=== PATIENT | female | born 1995 | race Caucasian/White ===

== ENCOUNTER 2016-06-12 00:19 | Emergency (ER) | payer OTHER ==
[2016-06-12 01:21] LABS: ALT 110 U/L (9-52); AST 47 U/L (14-36); Alkaline Phosphatase 176 U/L (38-126); Amylase 53 U/L (30-110); Anion Gap 12 mmol/L; Basophils % (A) 0 %; Blood Urea Nitrogen 13 mg/dL (7-17); CH 29.1; CHCM 36.3; Calcium 9.1 mg/dL (8.4-10.2); Carbon Dioxide 23 mmol/L (22-30); Chloride 100 mmol/L (98-107); Eosinophils # (A) 0.1 k/uL (0-0.7); Eosinophils % (A) 2 %; HCT 41.5 % (34.0-46.0); HDW 2.92; HGB 14.7 gm/dL (11.4-16.0); Luc # (Auto) 0.22; Luc % (Auto) 3; Lymphocytes % (A) 34 %; MCH 28.4 pg (25.0-35.0); MCHC 35.4 g/dL (31.0-37.0); MCV 80.2 fL (80.0-100.0); Mean Platelet Volume 7.4; Monocytes # (A) 0.4 k/uL (0-1.0); Monocytes % (A) 5 %; Neutrophils # (A) 5.1 k/uL (1.3-7.7); Neutrophils % (A) 58 %; Non-African American GFR(MDRD) >60 (>60 ml/min/1.73 sqM); Potassium 4.5 mmol/L (3.5-5.1); RBC 5.18 m/uL (3.80-5.40); RDW 12.4 % (11.5-15.5); Sodium 135 mmol/L (137-145); Total Bilirubin 1.2 mg/dL (0.2-1.3); Total Protein 6.9 g/dL (6.3-8.2); WBC 8.9 k/uL (4.0-11.0); WBC (Perox) 9.18
[2016-06-12 01:45] LABS: Glucose 483 mg/dL (74-99)
--- NOTE | 2016-06-12 01:54 | US ---
EXAMINATION TYPE: US gallbladder DATE OF EXAM: 06/12/2016 1:31 AM COMPARISON: NONE CLINICAL HISTORY: Abd pain, hx of gallstones, not NPO-- ate 2 hours ago. EXAM MEASUREMENTS: Liver Length: 17.4 cm Gallbladder Wall: 0.2 cm CHD: 0.4 cm Right Kidney: 11.5 x 5.5 x 5.2 cm TECHNOLOGIST IMPRESSION: Pancreas: Tail not seen due to overlying bowel gas Liver: upper limits, echogenic Gallbladder: Nondistended, multiple echogenic foci; some nonshadowing. Evidence for sonographic Pagan's sign: neg CHD: wnl Right Kidney: wnl IMPRESSION: There is a contracted gallbladder with multiple gallstones or echogenic bile. No dilated ducts. No ascites. No focal liver defect. Normal Values: Liver Length: < 16cm wnl, 17-18cm upper limits, >18cm enlarged Renal Length = 9 - 12cm GB Wall: < 0.3cm CBD: < 0.6cm or < 1.0cm post cholecystectomy
--- NOTE | 2016-06-12 01:54 | ED ---
Abdominal Pain HPI - General Chief Complaint: Abdominal Pain Stated Complaint: Gallbladder Time Seen by Provider: 06/12/16 00:47 Source: patient, RN notes reviewed Mode of arrival: ambulatory Limitations: no limitations - History of Present Illness Initial Comments: Patient is a 20-year-old female presenting to the with a chief complaint of abdominal pain. Patient reports that is in her right upper quadrant. She states that she is scheduled for gallbladder surgery on July 29. She has been to the multiple times for similar pains such as this. Patient reports that earlier today she had increased nausea and vomiting. She states that she' s had no diarrhea or fever or chills. Patient denies any recent fever, chills, shortness of breath, chest pain, back pain, numbness or tingling, dysuria or hematuria, constipation or diarrhea, headaches or visual changes, or any other current symptoms. She has a past medical history of type 1 diabetes. Patient is insulin-dependent. - Related Data Home Medications Medication Instructions Recorded Confirmed ALPRAZolam [Xanax] 0.5 mg PO Q8H PRN 11/10/14 06/12/16 metFORMIN HCL 1,000 mg PO BID 09/19/15 06/12/16 Glucagon Emergency Kit 1 mg IM ONCE PRN 03/14/16 06/12/16 Insulin Regular [HumuLIN R] See Protocol SQ-PUMP CONTINUOUS 04/22/16 06/12/16 Previous Rx's Medication Instructions Recorded Ondansetron Odt [Zofran Odt] 4 mg PO Q8HR PRN #20 tab 04/22/16 HYDROcodone/APAP 5-325MG [[place] 1 tab PO Q4HR PRN #20 tab 04/28/16 5-325] Hydrocodone/Acetaminophen [[place] 1 tab PO Q6HR PRN #10 tab 05/11/16 5-325] HYDROcodone/APAP 10-325MG [[place] 1 tab PO Q6H PRN #10 tab 06/12/16 10-325] Ondansetron [Zofran] 4 mg PO Q8HR PRN #8 tab 06/12/16 Allergies Allergy/AdvReac Type Severity Reaction Status Date / Time amoxicillin [Amoxicillin] Allergy Severe Rash/Hives Verified 06/12/16 00:23 citalopram hydrobromide Allergy Severe Rash/Hives Verified 06/12/16 00:23 [From Celexa] adhesive Allergy Itching Verified 06/12/16 00:23 adhesive tape Allergy Itching Verified 06/12/16 00:23 pioglitazone HCl [From Actos] Allergy Rash/Hives Verified 06/12/16 00:23 Review of Systems ROS Statement: Those systems with pertinent positive or pertinent negative responses have been documented in the HPI. ROS Other: All systems not noted in ROS Statement are negative. Past Medical History Past Medical History: Asthma, Diabetes Mellitus Additional Past Medical History / Comment(s): polycystic ovaries, TACHYCARDIA, gallbladder problems History of Any Multi-Drug Resistant Organisms: None Reported Past Surgical History: Adenoidectomy, Tonsillectomy Additional Past Surgical History / Comment(s): CYST REMOVAL FROM SINUS CAVITY, NOSE RECONSTRUCTION Past Anesthesia/Blood Transfusion Reactions: No Reported Reaction Past Psychological History: Anxiety, Depression Smoking Status: Former smoker Past Alcohol Use History: Occasional Past Drug Use History: Marijuana Additional Drug Use History / Comment(s): PT STATES SMOKES MARIJUANA OCASSIONALY - Past Family History Mother Family Medical History: Thyroid Disorder Additional Family Medical History / Comment(s): GESTATIONAL DIABETIC, BRAIN BLEED, DEPRESSION, ANXIETY Sister(s) Additional Family Medical History / Comment(s): DEPRESSION, ANXIETY General Exam - General Exam Comments Initial Comments: Patient is a pleasant 20-year-old female. She does not appear to be in any acute distress. Limitations: no limitations General appearance: alert, in no apparent distress Head exam: Present: atraumatic, normocephalic, normal inspection Eye exam: Present: normal appearance, PERRL, EOMI. Absent: scleral icterus, conjunctival injection, periorbital swelling ENT exam: Present: normal exam, mucous membranes moist Neck exam: Present: normal inspection. Absent: tenderness, meningismus, lymphadenopathy Respiratory exam: Present: normal lung sounds bilaterally. Absent: respiratory distress, wheezes, rales, rhonchi, stridor Cardiovascular Exam: Present: regular rate, normal rhythm, normal heart sounds, other (Patient has mild right upper quadrant tenderness.). Absent: systolic murmur, diastolic murmur, rubs, gallop, clicks GI/Abdominal exam: Present: soft, tenderness (Mild tenderness in the right upper quadrant.), normal bowel sounds. Absent: distended, guarding, rebound, rigid Extremities exam: Present: normal inspection, full ROM, normal capillary refill. Absent: tenderness, pedal edema, joint swelling, calf tenderness Back exam: Present: normal inspection Neurological exam: Present: alert, oriented X3, CN II-XII intact Psychiatric exam: Present: normal affect, normal mood Skin exam: Present: warm, dry, intact, normal color. Absent: rash Course Vital Signs 06/12/16 06/12/16 06/12/16 00:22 01:04 02:29 Temperature 98.5 F 98.8 F 98.1 F Pulse Rate 120 H 110 H 102 H Respiratory 20 18 16 Rate Blood Pressure 167/82 137/80 141/72 O2 Sat by Pulse 98 98 97 Oximetry Medical Decision Making - Medical Decision Making Patient is a 20-year-old female with a history of type 1 diabetes presenting to the with chief complaint of right upper quadrant pain. Patient states he is emergency room multiple times for similar complaints. Patient reports she does have a surgery scheduled for cholecystectomy on June 28. Patient reports that this evening her right upper quadrant pain became worse after eating. She also had a few episodes of vomiting. Patient was given IV fluids and pain management. Ultrasound was obtained reveals no evidence of acute cholecystitis. There is evidence of gallstones and a contracted gallbladder. Patient did have an elevated glucose of 483. Patient was given 8 units of insulin subcu. Acetone was negative and urine was negative for ketones. Patient blood sugar was rechecked and was 383 1 hour later. Patient is given a subsequent 6 units of insulin. Patient will be reevaluated and upon lowering blood sugar patient will be discharged. Patient will be discharged at this time with a blood sugar of 323, as is a half -hour after 6 additional units of insulin. Patient is adamant she wants to go home at this time. Patient will be discharged with pain medication and nausea medication. Patient understands treatment plan will comply. Return parameters were discussed. I advised patient called with primary care physician tomorrow. - Lab Data Result diagrams: 06/12/16 00:35 06/12/16 00:35 Lab Results 06/12/16 06/12/16 06/12/16 Range/Units 00:35 00:35 00:35 WBC 8.9 (4.0-11.0) k/uL RBC 5.18 (3.80-5.40) m/uL Hgb 14.7 (11.4-16.0) gm/dL Hct 41.5 (34.0-46.0) % MCV 80.2 (80.0-100.0) fL MCH 28.4 (25.0-35.0) pg MCHC 35.4 (31.0-37.0) g/dL RDW 12.4 (11.5-15.5) % Plt Count 298 (150-450) k/uL Neutrophils % 58 % Lymphocytes % 34 % Monocytes % 5 % Eosinophils % 2 % Basophils % 0 % Neutrophils # 5.1 (1.3-7.7) k/uL Lymphocytes # 3.0 (1.0-4.8) k/uL Monocytes # 0.4 (0-1.0) k/uL Eosinophils # 0.1 (0-0.7) k/uL Basophils # 0.0 (0-0.2) k/uL Sodium 135 L (137-145) mmol/L Potassium 4.5 (3.5-5.1) mmol/L Chloride 100 (98-107) mmol/L Carbon Dioxide 23 (22-30) mmol/L Anion Gap 12 mmol/L BUN 13 (7-17) mg/dL Creatinine 0.60 (0.52-1.04) mg/dL Est GFR (MDRD) Af Amer >60 (>60 ml/min/1.73 sqM) Est GFR (MDRD) Non-Af >60 (>60 ml/min/1.73 sqM) Glucose 483 H* (74-99) mg/dL POC Glucose (mg/dL) (75-99) mg/dL POC Glu Skills Trainer ID Calcium 9.1 (8.4-10.2) mg/dL Total Bilirubin 1.2 (0.2-1.3) mg/dL AST 47 H (14-36) U/L ALT 110 H (9-52) U/L Alkaline Phosphatase 176 H (38-126) U/L Total Protein 6.9 (6.3-8.2) g/dL Albumin 4.2 (3.5-5.0) g/dL Amylase 53 (30-110) U/L Lipase 86 (23-300) U/L Urine Color Colorless Urine Appearance Clear (Clear) Urine pH 5.5 (5.0-8.0) Ur Specific [place] 1.026 (1.001-1.035) Urine Protein Negative (Negative) Urine Glucose (UA) 4+ H (Negative) Urine Ketones Trace H (Negative) Urine Blood Moderate H (Negative) Urine Nitrate Negative (Negative) Urine Bilirubin Negative (Negative) Urine Urobilinogen <2.0 (<2.0) mg/dL Ur Leukocyte Esterase Negative (Negative) Urine RBC <1 (0-5) /hpf Urine WBC 3 (0-5) /hpf Ur Squamous Epith Cells 2 (0-4) /hpf Urine Bacteria Rare H (None) /hpf Urine HCG, Qual (Not Detectd) Acetone, Qual (Negative) 06/12/16 06/12/16 06/12/16 Range/Units 00:35 00:35 02:22 WBC (4.0-11.0) k/uL RBC (3.80-5.40) m/uL Hgb (11.4-16.0) gm/dL Hct (34.0-46.0) % MCV (80.0-100.0) fL MCH (25.0-35.0) pg MCHC (31.0-37.0) g/dL RDW (11.5-15.5) % Plt Count (150-450) k/uL Neutrophils % % Lymphocytes % % Monocytes % % Eosinophils % % Basophils % % Neutrophils # (1.3-7.7) k/uL Lymphocytes # (1.0-4.8) k/uL Monocytes # (0-1.0) k/uL Eosinophils # (0-0.7) k/uL Basophils # (0-0.2) k/uL Sodium (137-145) mmol/L Potassium (3.5-5.1) mmol/L Chloride (98-107) mmol/L Carbon Dioxide (22-30) mmol/L Anion Gap mmol/L BUN (7-17) mg/dL Creatinine (0.52-1.04) mg/dL Est GFR (MDRD) Af Amer (>60 ml/min/1.73 sqM) Est GFR (MDRD) Non-Af (>60 ml/min/1.73 sqM) Glucose (74-99) mg/dL POC Glucose (mg/dL) 361 H (75-99) mg/dL POC Glu Skills Trainer ID Denisha Verma Calcium (8.4-10.2) mg/dL Total Bilirubin (0.2-1.3) mg/dL AST (14-36) U/L ALT (9-52) U/L Alkaline Phosphatase (38-126) U/L Total Protein (6.3-8.2) g/dL Albumin (3.5-5.0) g/dL Amylase (30-110) U/L Lipase (23-300) U/L Urine Color Urine Appearance (Clear) Urine pH (5.0-8.0) Ur Specific [place] (1.001-1.035) Urine Protein (Negative) Urine Glucose (UA) (Negative) Urine Ketones (Negative) Urine Blood (Negative) Urine Nitrate (Negative) Urine Bilirubin (Negative) Urine Urobilinogen (<2.0) mg/dL Ur Leukocyte Esterase (Negative) Urine RBC (0-5) /hpf Urine WBC (0-5) /hpf Ur Squamous Epith Cells (0-4) /hpf Urine Bacteria (None) /hpf Urine HCG, Qual Not Detected (Not Detectd) Acetone, Qual Negative (Negative) 06/12/16 Range/Units 03:14 WBC (4.0-11.0) k/uL RBC (3.80-5.40) m/uL Hgb (11.4-16.0) gm/dL Hct (34.0-46.0) % MCV (80.0-100.0) fL MCH (25.0-35.0) pg MCHC (31.0-37.0) g/dL RDW (11.5-15.5) % Plt Count (150-450) k/uL Neutrophils % % Lymphocytes % % Monocytes % % Eosinophils % % Basophils % % Neutrophils # (1.3-7.7) k/uL Lymphocytes # (1.0-4.8) k/uL Monocytes # (0-1.0) k/uL Eosinophils # (0-0.7) k/uL Basophils # (0-0.2) k/uL Sodium (137-145) mmol/L Potassium (3.5-5.1) mmol/L Chloride (98-107) mmol/L Carbon Dioxide (22-30) mmol/L Anion Gap mmol/L BUN (7-17) mg/dL Creatinine (0.52-1.04) mg/dL Est GFR (MDRD) Af Amer (>60 ml/min/1.73 sqM) Est GFR (MDRD) Non-Af (>60 ml/min/1.73 sqM) Glucose (74-99) mg/dL POC Glucose (mg/dL) 360 H (75-99) mg/dL POC Glu Skills Trainer ID Denisha Verma Calcium (8.4-10.2) mg/dL Total Bilirubin (0.2-1.3) mg/dL AST (14-36) U/L ALT (9-52) U/L Alkaline Phosphatase (38-126) U/L Total Protein (6.3-8.2) g/dL Albumin (3.5-5.0) g/dL Amylase (30-110) U/L Lipase (23-300) U/L Urine Color Urine Appearance (Clear) Urine pH (5.0-8.0) Ur Specific [place] (1.001-1.035) Urine Protein (Negative) Urine Glucose (UA) (Negative) Urine Ketones (Negative) Urine Blood (Negative) Urine Nitrate (Negative) Urine Bilirubin (Negative) Urine Urobilinogen (<2.0) mg/dL Ur Leukocyte Esterase (Negative) Urine RBC (0-5) /hpf Urine WBC (0-5) /hpf Ur Squamous Epith Cells (0-4) /hpf Urine Bacteria (None) /hpf Urine HCG, Qual (Not Detectd) Acetone, Qual (Negative) - Radiology Data Radiology results: report reviewed Right upper quadrant ultrasound showed a contracted gallbladder with multiple gallstones or echogenic bile. No dilated ducts. No ascites and no focal lobar deficit. Disposition Clinical Impression: Biliary colic, Hyperglycemia, Nausea Disposition: HOME SELF-CARE Condition: Good Instructions: Abdominal Pain (ED), Biliary Colic (ED) Additional Instructions: Patient started to follow-up with primary care provider in one to 2 days. Take nausea medication as prescribed. Continue to use her insulin. Return to the EC if any alarming signs or symptoms occur. Follow-up with surgery on the for gallbladder removal. Prescriptions: HYDROcodone/APAP 10-325MG [[place] 10-325] 1 tab PO Q6H PRN #10 tab PRN Reason: Pain Ondansetron [Zofran] 4 mg PO Q8HR PRN #8 tab PRN Reason: Nausea And Vomiting Referrals: Gemma Jacob MD [Primary Care Provider] - 1-2 days Time of Disposition: 03:02
[2016-06-12 01:55] LABS: Appearance,Urine Clear (Clear); Bacteria,Urine Rare /hpf; Bilirubin,Urine Negative (Negative); Glucose,Urine (UA) 4+ (Negative); Ketones,Urine Trace (Negative); Leukocyte Esterase,Urine Negative (Negative); Nitrite,Urine Negative (Negative); PH, Urine 5.5 (5.0-8.0); Particle Count 371; Protein,Urine Negative (Negative); RBC,Urine <1 /hpf (0-5); Specific Gravity,Urine 1.026 (1.001-1.035); Squamous Epithelial Cell,Urine 2 /hpf (0-4); UA Billing (MACRO vs. MICRO) MICRO; Urobilinogen,Urine <2.0 mg/dL (<2.0); WBC,Urine 3 /hpf (0-5)
--- NOTE | 2016-06-12 01:55 | XR ---
EXAMINATION TYPE: XR KUB DATE OF EXAM: 06/12/2016 1:39 AM COMPARISON: 04/09/2016 HISTORY: Abdominal pain TECHNIQUE: 2 views FINDINGS: Bowel gas pattern is normal. There is no sign of intestinal obstruction or pneumoperitoneum . Fecal pattern is normal. There is no evidence of a mass. There are no pathologic calcifications ove r the kidneys. IMPRESSION: Nonacute abdomen. No change.
[2016-06-12] MEDS ORDERED: ONDANSETRON 4 MG/2 ML VIAL IVP STA (01:58)
[2016-06-12] MEDS ORDERED: HYDROmorphone 1 MG/ML 1 ML SYRINGE IVP STA (01:59)
[2016-06-12] MEDS ORDERED: INSULIN REGULAR 100 UNIT/ML VIAL SQ ONE ×2 (02:10→03:30)
[2016-06-12 02:23] LABS: Glucose,Whole Blood 361 mg/dL (75-99)
[2016-06-12] MEDS ORDERED: SODIUM CHLORIDE 0.9% 1,000 ML IV STA (02:24)
[2016-06-12 02:30] VITALS: BP 141/72; PULSE 102; RESP 16; TEMP 98.1
[2016-06-12] MEDS ORDERED: METOCLOPRAMIDE 5 MG/ML 2 ML VIAL IVP STA (02:47)
[2016-06-12] MEDS ORDERED: HYDROcodone/APAP 10-325MG 1 EACH TAB PO ONE (02:58)
[2016-06-12 03:15] LABS: Glucose,Whole Blood 360 mg/dL (75-99)
[2016-06-12 04:01] LABS: Glucose,Whole Blood 329 mg/dL (75-99)
== END 2016-06-12 04:04 | disposition home or self-care (01) ==
LOC: EC 00:19
DX: K80.20 Calculus of gallbladder without cholecystitis without obstruction (principal); E10.65 Type 1 diabetes mellitus with hyperglycemia; Z96.41 Presence of insulin pump (external) (internal); E28.2 Polycystic ovarian syndrome; Z79.84 Long term (current) use of oral hypoglycemic drugs; Z88.0 Allergy status to penicillin; Z88.8 Allergy status to other drugs, medicaments and biological substances; Z87.891 Personal history of nicotine dependence; F12.90 Cannabis use, unspecified, uncomplicated
CPT/HCPCS: 99284; 96374; 96375 ×2; 96361; 36415; 80053; 82150; 82009; 83690; 85025; 81001; 81025; 74000; 76705; J2765; J2405; J1170

== ENCOUNTER 2016-06-26 15:15 | Emergency (ER) | payer OTHER ==
[2016-06-26] MEDS ORDERED: HYDROmorphone 1 MG/ML 1 ML SYRINGE IVP STA (17:13)
[2016-06-26] MEDS ORDERED: PANTOPRAZOLE 40 MG/10 ML VIAL IVP STA (17:13)
[2016-06-26] MEDS ORDERED: METOCLOPRAMIDE 5 MG/ML 2 ML VIAL IVP STA (17:13)
[2016-06-26] MEDS ORDERED: SODIUM CHLORIDE 0.9% 1,000 ML IV STA (17:13)
--- NOTE | 2016-06-26 17:20 | ED ---
General Adult HPI - General Chief complaint: Abdominal Pain Stated complaint: gallbladder/pain/vomiting Time Seen by Provider: 06/26/16 16:54 Source: patient, family, RN notes reviewed, old records reviewed Mode of arrival: ambulatory Limitations: no limitations - History of Present Illness Initial comments: Chief complaint and history of present illness a 20-year-old female here with her mother. The patient has had recurrent gallbladder pain. She scheduled to have cholecystectomy in approximately 36 hours. Patient reports the pain started last night persistent through this morning. Nausea vomiting one episode of diarrhea yesterday. - Related Data Home Medications Medication Instructions Recorded Confirmed ALPRAZolam [Xanax] 0.5 mg PO Q8H PRN 11/10/14 06/26/16 metFORMIN HCL 1,000 mg PO BID 09/19/15 06/26/16 Insulin Regular [HumuLIN R] See Protocol SQ-PUMP CONTINUOUS 04/22/16 06/26/16 Ondansetron [Zofran ODT] 4 mg PO Q8HR PRN 06/26/16 06/26/16 Allergies Allergy/AdvReac Type Severity Reaction Status Date / Time amoxicillin [Amoxicillin] Allergy Severe Rash/Hives Verified 06/26/16 16:47 citalopram hydrobromide Allergy Severe Rash/Hives Verified 06/26/16 16:47 [From Celexa] adhesive Allergy Itching Verified 06/26/16 16:47 adhesive tape Allergy Itching Verified 06/26/16 16:47 pioglitazone HCl [From Actos] Allergy Rash/Hives Verified 06/26/16 16:47 Review of Systems ROS Statement: Those systems with pertinent positive or pertinent negative responses have been documented in the HPI. Review of systems no headache or visual acuity changes no chest pain or shortness of breath. Patient has right upper quadrant discomfort nausea vomiting one episode of diarrhea. No back pain no neuro deficits no urinary problems. All systems were otherwise reviewed. Past medical problems significant for asthma, insulin-dependent diabetes mellitus, polycystic ovaries. Surgeries tonsils, adenoids, sinus cyst removed. The patient's family history significant for great grandmother had breast cancer. Patient quit smoking one year ago and since alcohol socially. ROS Other: All systems not noted in ROS Statement are negative. Past Medical History Past Medical History: Asthma, Diabetes Mellitus Additional Past Medical History / Comment(s): polycystic ovaries, TACHYCARDIA, gallbladder problems History of Any Multi-Drug Resistant Organisms: None Reported Past Surgical History: Adenoidectomy, Tonsillectomy Additional Past Surgical History / Comment(s): CYST REMOVAL FROM SINUS CAVITY, NOSE RECONSTRUCTION Past Anesthesia/Blood Transfusion Reactions: No Reported Reaction Past Psychological History: Anxiety, Depression Smoking Status: Former smoker Past Alcohol Use History: None Reported Past Drug Use History: None Reported Additional Drug Use History / Comment(s): PT STATES SMOKES MARIJUANA OCASSIONALY - Past Family History Mother Family Medical History: Thyroid Disorder Additional Family Medical History / Comment(s): GESTATIONAL DIABETIC, BRAIN BLEED, DEPRESSION, ANXIETY Sister(s) Additional Family Medical History / Comment(s): DEPRESSION, ANXIETY General Exam - General Exam Comments Initial Comments: General: The patient is awake and alert, right upper quadrant pain. Lasting several hours with nausea vomiting and one episode of diarrhea yesterday. Vital signs show temperature 98.3 pulse 110 respiratory rate 18 pulse ox 96% room air blood pressure 177/92. Systolic and diastolic elevation noted the patient is in pain. Eye: Pupils are equal, round and reactive to light, extra-ocular movements are intact ; there is normal conjunctiva bilaterally. No signs of icterus. Ears, nose, mouth and throat: There are moist mucous membranes and no oral lesions. Neck: The neck is supple, there is no tenderness . Cardiovascular: Tachycardic heart rate., 110. No murmur, rub or gallop is appreciated. Respiratory: Lungs are clear to auscultation, respirations are non-labored, breath sounds are equal. No wheezes, stridor, rales, or rhonchi. Gastrointestinal: Soft, non-distended, mildly tender right upper quadrant. Negative Pagan sign.. There is no rebound or guarding present. No CVA tenderness. Bowel sounds are unremarkable. Back: There is no tenderness to palpation in the midline. There is no obvious deformity. Musculoskeletal: Normal ROM, no tenderness, There is no pedal edema. There is no calf tenderness or swelling. Sensation intact. Pulses equal bilaterally 2+. Neurological: No complaint of or any evidence of any neuro deficits. Skin: Skin is warm and dry and no rashes or lesions are noted. Limitations: no limitations Course Vital Signs 06/26/16 15:55 Temperature 98.3 F Pulse Rate 110 H Respiratory 18 Rate Blood Pressure 167/92 O2 Sat by Pulse 96 Oximetry Medical Decision Making - Medical Decision Making Medical decision making; patient white count 7.7 hemoglobin 15 hematocrit of 43 , potassium 5.1. The patient's BUN 10 creatinine 0.46 with a GFR greater than 60. Amylase lipase within normal limits. The patient's glucose elevated to 79 for which she is to receive 6 units of regular insulin subcu. The patient total bilirubin is elevated at 2.3 AST ALT and alk phos elevated as well. She was given medications hydration states she's feeling much better. States she's able to go home follow up with her general surgeon in approximately 36 hours to have her gallbladder removed. Advised return emergency room as needed otherwise stable a small greasy fatty foods. - Lab Data Result diagrams: 06/26/16 18:00 06/26/16 18:00 Lab Results 06/26/16 06/26/16 Range/Units 18:00 18:00 WBC 7.7 (4.0-11.0) k/uL RBC 5.43 H (3.80-5.40) m/uL Hgb 15.4 (11.4-16.0) gm/dL Hct 43.3 (34.0-46.0) % MCV 79.7 L (80.0-100.0) fL MCH 28.3 (25.0-35.0) pg MCHC 35.6 (31.0-37.0) g/dL RDW 12.6 (11.5-15.5) % Plt Count 294 (150-450) k/uL Neutrophils % 60 % Lymphocytes % 32 % Monocytes % 4 % Eosinophils % 2 % Basophils % 1 % Neutrophils # 4.6 (1.3-7.7) k/uL Lymphocytes # 2.5 (1.0-4.8) k/uL Monocytes # 0.3 (0-1.0) k/uL Eosinophils # 0.1 (0-0.7) k/uL Basophils # 0.0 (0-0.2) k/uL Sodium 137 (137-145) mmol/L Potassium 5.1 (3.5-5.1) mmol/L Chloride 102 (98-107) mmol/L Carbon Dioxide 20 L (22-30) mmol/L Anion Gap 15 mmol/L BUN 10 (7-17) mg/dL Creatinine 0.46 L (0.52-1.04) mg/dL Est GFR (MDRD) Af Amer >60 (>60 ml/min/1.73 sqM) Est GFR (MDRD) Non-Af >60 (>60 ml/min/1.73 sqM) Glucose 279 H (74-99) mg/dL Calcium 9.7 (8.4-10.2) mg/dL Total Bilirubin 2.3 H (0.2-1.3) mg/dL AST 51 H (14-36) U/L ALT 129 H (9-52) U/L Alkaline Phosphatase 128 H (38-126) U/L Total Protein 8.1 (6.3-8.2) g/dL Albumin 4.7 (3.5-5.0) g/dL Amylase 47 (30-110) U/L Lipase 62 (23-300) U/L Disposition Clinical Impression: Biliary colic, Abdominal pain Disposition: HOME SELF-CARE Condition: Fair Instructions: Biliary Colic (ED) Additional Instructions: Take home medications, stay away from greasy fatty foods. Follow-up with your surgeon for cholecystectomy today or tomorrow. Return emergency room as needed. Check sugar regularly and cover appropriately with available regular insulin. Time of Disposition: 18:48
[2016-06-26 18:15] LABS: Basophils % (A) 1 %; CHCM 36.5; Eosinophils # (A) 0.1 k/uL (0-0.7); Eosinophils % (A) 2 %; HCT 43.3 % (34.0-46.0); HDW 2.96; HGB 15.4 gm/dL (11.4-16.0); Luc # (Auto) 0.17; Luc % (Auto) 2; Lymphocytes # (A) 2.5 k/uL (1.0-4.8); Lymphocytes % (A) 32 %; MCH 28.3 pg (25.0-35.0); MCHC 35.6 g/dL (31.0-37.0); MCV 79.7 fL (80.0-100.0); Mean Platelet Volume 7.1; Monocytes # (A) 0.3 k/uL (0-1.0); Monocytes % (A) 4 %; Neutrophils # (A) 4.6 k/uL (1.3-7.7); Neutrophils % (A) 60 %; RBC 5.43 m/uL (3.80-5.40); RDW 12.6 % (11.5-15.5); WBC 7.7 k/uL (4.0-11.0); WBC (Perox) 7.98
[2016-06-26 18:24] LABS: ALT 129 U/L (9-52); AST 51 U/L (14-36); Alkaline Phosphatase 128 U/L (38-126); Amylase 47 U/L (30-110); Anion Gap 15 mmol/L; Blood Urea Nitrogen 10 mg/dL (7-17); Calcium 9.7 mg/dL (8.4-10.2); Carbon Dioxide 20 mmol/L (22-30); Chloride 102 mmol/L (98-107); Glucose 279 mg/dL (74-99); Non-African American GFR(MDRD) >60 (>60 ml/min/1.73 sqM); Potassium 5.1 mmol/L (3.5-5.1); Sodium 137 mmol/L (137-145); Total Bilirubin 2.3 mg/dL (0.2-1.3); Total Protein 8.1 g/dL (6.3-8.2)
[2016-06-26] MEDS ORDERED: INSULIN REGULAR 100 UNIT/ML VIAL SQ ONE (18:44)
[2016-06-26 19:09] VITALS: BP 150/87; PULSE 98; RESP 20; TEMP 97.7
== END 2016-06-26 19:11 | disposition home or self-care (01) ==
LOC: EC 15:15
DX: K80.50 Calculus of bile duct without cholangitis or cholecystitis without obstruction (principal); Z79.4 Long term (current) use of insulin; Z79.84 Long term (current) use of oral hypoglycemic drugs; Z88.0 Allergy status to penicillin; Z88.8 Allergy status to other drugs, medicaments and biological substances; Z91.048 Other nonmedicinal substance allergy status; Z87.891 Personal history of nicotine dependence; E11.9 Type 2 diabetes mellitus without complications
CPT/HCPCS: 36415; 80053; 82150; 83690; 85025; 96374; 96375 ×2; 96361; 99284; J2765; J1170; C9113

== ENCOUNTER 2016-06-28 07:01 | Day surgery (SDC) | payer OTHER ==
[2016-06-25 11:06] VITALS: BMI 32.3
[~2016-06-28 07:01] MED LIST: DEXAMETHASONE SOD PHOSPHATE 10 MG/ML 1 ML VIAL IV ONE; HEPARIN SODIUM,PORCINE 5,000 UNIT/ML 1 ML VIAL SQ ONE; LACTATED RINGERS 1,000 ML IV SCH; MIDAZOLAM 2 MG/2 ML VIAL IV PRN; ONDANSETRON 4 MG/2 ML VIAL IVP ONE; ceFAZolin 2 GM in SODIUM CHLORIDE 0.9% 100 ML IVPB ONE
[2016-06-28 07:23] LABS: Glucose,Whole Blood 107 mg/dL (75-99)
[2016-06-28] MEDS ORDERED: LIDOCAINE 1% 20 ML VIAL (10MG/ML) FOR IV START INTRADERMA ONE (07:25)
[2016-06-28 07:31] VITALS: RESP 16
--- NOTE | 2016-06-28 08:16 | P.GSHP ---
History of Present Illness H&P Date: 06/28/16 Chief Complaint: Cholecystitis Patient seen by myself in the office in November of last year. At that time the patient is having complaints of right upper quadrant pain. He is found on lab work to have elevated liver enzymes. A contracted gallbladder was also identified. She had a previous upper endoscopy showing gastritis. Initially the ultrasounds were stating no gallstones however repeat ultrasounds performed after the patient re-presented to the ER showed the presence of multiple gallstones. Patient was actually just in the emergency room at 2 weeks ago. Her bilirubin was once again elevated. There is no biliary dilation. The patient was seen by GI for elevated liver enzymes. Request for liver biopsy was made. Patient denies any change in the color of her skin urine or stool. No rectal bleeding or melena. Recent liver enzymes normal. Past Medical History Past Medical History: Asthma, Diabetes Mellitus Additional Past Medical History / Comment(s): polycystic ovaries, TACHYCARDIA, gallbladder problems History of Any Multi-Drug Resistant Organisms: None Reported Past Surgical History: Adenoidectomy, Tonsillectomy Additional Past Surgical History / Comment(s): CYST REMOVAL FROM SINUS CAVITY, NOSE RECONSTRUCTION Past Anesthesia/Blood Transfusion Reactions: No Reported Reaction Past Psychological History: Anxiety, Depression Smoking Status: Former smoker Past Alcohol Use History: None Reported Additional Past Alcohol Use History / Comment(s): QUIT SMOKING 2015 Past Drug Use History: None Reported Additional Drug Use History / Comment(s): PT STATES SMOKES MARIJUANA OCASSIONALY - Past Family History Mother Family Medical History: Thyroid Disorder Additional Family Medical History / Comment(s): GESTATIONAL DIABETIC, BRAIN BLEED, DEPRESSION, ANXIETY Sister(s) Additional Family Medical History / Comment(s): DEPRESSION, ANXIETY Medications and Allergies Home Medications Medication Instructions Recorded Confirmed Type ALPRAZolam [Xanax] 0.5 mg PO Q8H PRN 11/10/14 06/28/16 History metFORMIN HCL 1,000 mg PO BID 09/19/15 06/28/16 History Insulin Regular [HumuLIN R] See Protocol SQ-PUMP CONTINUOUS 04/22/16 06/26/16 History Ondansetron [Zofran ODT] 4 mg PO Q8HR PRN 06/26/16 06/28/16 History Allergies Allergy/AdvReac Type Severity Reaction Status Date / Time amoxicillin [Amoxicillin] Allergy Severe Rash/Hives Verified 06/28/16 07:22 citalopram hydrobromide Allergy Severe Rash/Hives Verified 06/28/16 07:22 [From Celexa] adhesive Allergy Itching Verified 06/28/16 07:22 adhesive tape Allergy Itching Verified 06/28/16 07:22 pioglitazone HCl [From Actos] Allergy Rash/Hives Verified 06/28/16 07:22 Surgical - Exam Vital Signs Temp Pulse Resp BP Pulse Ox 98.1 F 104 H 16 138/87 98 06/28/16 07:30 06/28/16 07:30 06/28/16 07:30 06/28/16 07:30 06/28/16 07:30 Physical exam: General: Well-developed, well-nourished HEENT: Normocephalic, sclerae nonicteric Abdomen: Nontender, nondistended Extremities: No edema Neuro: Alert and oriented Results - Labs Abnormal Lab Results - Last 24 Hours (Table) 06/28/16 Range/Units 07:20 POC Glucose (mg/dL) 107 H (75-99) mg/dL Assessment and Plan (1) Biliary colic Narrative/Plan: Will proceed with left pelvic cholecystectomy with liver biopsy today. The risks of bleeding, infection, biloma formation, common bile duct injury, conversion to an open procedure, retained common bile duct stone, persistent pain, persistent diarrhea, potential need for additional procedures were discussed. The patient understands and wished to proceed. Status: Acute
[2016-06-28] MEDS ORDERED: fentaNYL (PF) 50 MCG/ML 2 ML AMP ONE (08:31)
[2016-06-28] MEDS ORDERED: SUCCINYLCHOLINE CHLORIDE 100 MG/5 ML SYR IV ONE (08:31)
[2016-06-28] MEDS ORDERED: PROPOFOL 10 MG/ML 20 ML VIAL IV ONE (08:31)
[2016-06-28] MEDS ORDERED: KETOROLAC 30 MG/ML 1 ML VIAL ONE (08:31)
[2016-06-28] MEDS ORDERED: BUPIVACAIN-EPI 0.25%-1:200,000 30 ML VIAL SQ ONE (08:31)
[2016-06-28] MEDS ORDERED: ROCURONIUM BROMIDE 10 MG/ML 10 ML VIAL IV ONE (08:31)
[2016-06-28] MEDS ORDERED: GLYCOPYRROLATE 0.2 MG/ML 2 ML VIAL ONE (08:31)
[2016-06-28] MEDS ORDERED: LIDOCAINE 1% INJ 10MG/ML (20 ML MDV) ONE (08:31)
[2016-06-28] MEDS ORDERED: MIDAZOLAM 2 MG/2 ML VIAL ONE (08:31)
[2016-06-28] MEDS ORDERED: NEOSTIGMINE 1 MG/ML 10 ML VIAL ONE (08:31)
[2016-06-28] MEDS ORDERED: LACTATED RINGERS 1,000 ML IV ONE (09:29)
[2016-06-28 09:51] VITALS: TEMP 96.8
[2016-06-28] MEDS ORDERED: HYDROcodone/APAP 5-325MG 1 EACH TAB PO PRN (09:52)
[2016-06-28] MEDS ORDERED: NALOXONE 0.4 MG/ML 1 ML VIAL IV PRN (09:52)
--- NOTE | 2016-06-28 09:54 | P.PCN ---
Date of Procedure: 06/28/16 Procedure(s) Performed: PREOPERATIVE DIAGNOSIS: Chronic cholecystitis, elevated liver enzymes POSTOPERATIVE DIAGNOSIS: Same PROCEDURE: Laparoscopic cholecystectomy, liver biopsy SURGEON: Nidia EBL: Minimal see anesthesia record ANESTHESIA: Gen. COMPLICATIONS: None OPERATIVE PROCEDURE: The patient was brought and placed on the operating room table in the supine position. The patient was placed under general anesthesia at that time. The abdomen was prepped and draped in the usual sterile fashion. A small vertical infraumbilical incision was made. The fascia was grasped with the Miguel forceps. The fascia was retracted anteriorly. The Veress needle was advanced into the peritoneal cavity. The saline drop test was normal. Insufflation took place up to 15 mmHg. A 5 mm optical trocar was advanced and the peritoneal cavity. 2 additional 5 mm trochars were placed in the right upper quadrant under direct visualization. A 10 mm trocar was advanced into the epigastric incision site. The gallbladder was retracted superiorly and laterally. The peritoneum overlying the infundibulum was bluntly dissected. The patient's cystic duct was visualized. The junction between the cystic duct common and hepatic duct was identified. The cystic duct was then divided after placement of 3 10 mm clips on the patient's side and one on the specimen side. The cystic artery was identified and clipped as well. A small vessel was seen along the gallbladder fossa and clipped as well. The gallbladder was then removed from the liver bed using electrocautery. The gallbladder was then removed from the epigastric trocar site with an Endo Catch bag. The gallbladder fossa was irrigated with saline. There was no evidence of any bleeding or biliary drainage seen. I then used a Bishop-Cut core biopsy needle to take 3 samples of the liver parenchyma. These biopsies were sent to pathology in formalin. Electrocautery was used at the liver margin where small amount of bleeding was seen. No additional bleeding was seen at that time. The trochars were then removed. The fascia at the 10 millimeter site was closed using a [id number] 0 Vicryl stitch. The skin at all 4 sites was closed using a 4-0 Monocryl stitch. At the end of this procedure the sponge and needle counts were correct. DISPOSITION: Stable to the recovery room
[2016-06-28 09:56] LABS: Glucose,Whole Blood 135 mg/dL (75-99)
[2016-06-28] MEDS: HYDROmorphone 1 MG/ML 1 ML SYRINGE IVP PRN ×2 (10:12→10:17)
[2016-06-28 11:27] LABS: Glucose,Whole Blood 136 mg/dL (75-99)
[2016-06-28 12:28] VITALS: BP 115/67; PULSE 91
== END 2016-06-28 13:05 | disposition home or self-care (01) ==
LOC: OR 07:01
PROVIDERS: ATTEND Surgery
DX: K80.10 Calculus of gallbladder with chronic cholecystitis without obstruction (principal); K75.81 Nonalcoholic steatohepatitis (NASH); E11.9 Type 2 diabetes mellitus without complications; Z87.891 Personal history of nicotine dependence; F41.9 Anxiety disorder, unspecified; Z79.899 Other long term (current) drug therapy; Z79.84 Long term (current) use of oral hypoglycemic drugs; Z79.4 Long term (current) use of insulin; Z96.41 Presence of insulin pump (external) (internal); Z88.0 Allergy status to penicillin; Z88.8 Allergy status to other drugs, medicaments and biological substances
CPT/HCPCS: 47379; 47562; 81025; 88304; 88313; 88307; 84703; J2250; J1644; J1100; J2710; J0690; J2405; J2001; J3010; J1885; J1170; J0330; J2704

== ENCOUNTER 2016-06-29 03:20 | Observation (INO) | payer OTHER ==
[2016-06-29] MEDS ORDERED: LORazepam 2 MG/ML SYRINGE IV STA (03:31)
[2016-06-29] MEDS ORDERED: ONDANSETRON 4 MG/2 ML VIAL IVP STA (03:31)
[2016-06-29] MEDS ORDERED: SODIUM CHLORIDE 0.9% 500 ML IV STA ×2 (03:31→05:21)
[2016-06-29] MEDS ORDERED: PANTOPRAZOLE 40 MG/10 ML VIAL IVP STA (03:31)
[2016-06-29] MEDS ORDERED: SODIUM CHLORIDE 0.9% 1,000 ML IV STA ×3 (03:31→05:21)
[2016-06-29] MEDS ORDERED: MORPHINE SULFATE 4 MG/ML SYRINGE IVP STA (03:32)
--- NOTE | 2016-06-29 03:39 | ED ---
General Adult HPI - General Chief complaint: Abdominal Pain Stated complaint: post op pain: galbladder removal Time Seen by Provider: 06/29/16 03:29 Source: patient, RN notes reviewed, old records reviewed Mode of arrival: wheelchair Limitations: no limitations - History of Present Illness Initial comments: This is a 20-year-old female here for evaluation of abdominal pain. Patient severe abdominal pain. Patient recently had colon surgery. Patient's surgery was done 2-3 days ago. Mild nausea no vomiting severe abdominal pain. No fevers. Decreased appetite no change in bowel habits - Related Data Home Medications Medication Instructions Recorded Confirmed ALPRAZolam [Xanax] 0.5 mg PO Q8H PRN 11/10/14 06/29/16 metFORMIN HCL 1,000 mg PO BID 09/19/15 06/29/16 Insulin Regular [HumuLIN R] See Protocol SQ-PUMP CONTINUOUS 04/22/16 06/29/16 Ondansetron [Zofran ODT] 4 mg PO Q8HR PRN 06/26/16 06/29/16 Previous Rx's Medication Instructions Recorded Hydrocodone/Acetaminophen [[place] 1 - 2 each PO Q4HR PRN #30 tab 06/28/16 5-325] Allergies Allergy/AdvReac Type Severity Reaction Status Date / Time amoxicillin [Amoxicillin] Allergy Severe Rash/Hives Verified 06/28/16 07:22 citalopram hydrobromide Allergy Severe Rash/Hives Verified 06/28/16 07:22 [From Celexa] adhesive Allergy Itching Verified 06/28/16 07:22 adhesive tape Allergy Itching Verified 06/28/16 07:22 pioglitazone HCl [From Actos] Allergy Rash/Hives Verified 06/28/16 07:22 Review of Systems ROS Statement: Those systems with pertinent positive or pertinent negative responses have been documented in the HPI. ROS Other: All systems not noted in ROS Statement are negative. Past Medical History Past Medical History: Asthma, Diabetes Mellitus Additional Past Medical History / Comment(s): polycystic ovaries, TACHYCARDIA, gallbladder problems History of Any Multi-Drug Resistant Organisms: None Reported Past Surgical History: Adenoidectomy, Cholecystectomy, Tonsillectomy Additional Past Surgical History / Comment(s): CYST REMOVAL FROM SINUS CAVITY, NOSE RECONSTRUCTION Past Anesthesia/Blood Transfusion Reactions: No Reported Reaction Past Psychological History: Anxiety, Depression Smoking Status: Former smoker Past Alcohol Use History: None Reported Past Drug Use History: None Reported Additional Drug Use History / Comment(s): PT STATES SMOKES MARIJUANA OCASSIONALY - Past Family History Mother Family Medical History: Thyroid Disorder Additional Family Medical History / Comment(s): GESTATIONAL DIABETIC, BRAIN BLEED, DEPRESSION, ANXIETY Sister(s) Additional Family Medical History / Comment(s): DEPRESSION, ANXIETY General Exam Limitations: no limitations General appearance: alert, in no apparent distress Head exam: Present: atraumatic, normocephalic, normal inspection Eye exam: Present: normal appearance, PERRL, EOMI. Absent: scleral icterus, conjunctival injection, periorbital swelling ENT exam: Present: normal exam, mucous membranes moist Neck exam: Present: normal inspection. Absent: tenderness, meningismus, lymphadenopathy Respiratory exam: Present: normal lung sounds bilaterally. Absent: respiratory distress, wheezes, rales, rhonchi, stridor Cardiovascular Exam: Present: normal rhythm, tachycardia, normal heart sounds. Absent: systolic murmur, diastolic murmur, rubs, gallop, clicks GI/Abdominal exam: Present: distended, tenderness, guarding, normal bowel sounds. Absent: rebound, rigid Extremities exam: Present: normal inspection, full ROM, normal capillary refill. Absent: tenderness, pedal edema, joint swelling, calf tenderness Back exam: Present: normal inspection Neurological exam: Present: alert, oriented X3, CN II-XII intact Psychiatric exam: Present: normal affect, normal mood Skin exam: Present: warm, dry, intact, normal color. Absent: rash Course Vital Signs 06/29/16 06/29/16 06/29/16 03:23 04:04 05:41 Temperature 97.2 F L Pulse Rate 96 81 Respiratory 149 H 20 16 Rate Blood Pressure 208/110 125/71 118/56 O2 Sat by Pulse 98 96 97 Oximetry - Reevaluation(s) Reevaluation #1: 06/29/16 05:58 Patient's pain is feeling much better controlled Medical Decision Making - Medical Decision Making 20 female ER for evaluation of abdominal issue, patient did have recent cholecystectomy with liver biopsy. Patient will be admitted for 23 hour observation regarding possible complications of liver biopsy and abdominal pain. - Lab Data Result diagrams: 06/29/16 03:50 06/29/16 03:50 Lab Results 06/29/16 06/29/16 06/29/16 Range/Units 03:50 03:50 03:50 WBC 13.8 H (4.0-11.0) k/uL RBC 5.10 (3.80-5.40) m/uL Hgb 14.1 (11.4-16.0) gm/dL Hct 40.2 (34.0-46.0) % MCV 78.9 L (80.0-100.0) fL MCH 27.6 (25.0-35.0) pg MCHC 35.0 (31.0-37.0) g/dL RDW 12.5 (11.5-15.5) % Plt Count 296 (150-450) k/uL Neutrophils % 69 % Lymphocytes % 24 % Monocytes % 5 % Eosinophils % 1 % Basophils % 0 % Neutrophils # 9.5 H (1.3-7.7) k/uL Lymphocytes # 3.4 (1.0-4.8) k/uL Monocytes # 0.6 (0-1.0) k/uL Eosinophils # 0.1 (0-0.7) k/uL Basophils # 0.0 (0-0.2) k/uL PT (9.0-12.0) sec INR (<1.1) APTT (22.0-30.0) sec Sodium 136 L (137-145) mmol/L Potassium 4.2 (3.5-5.1) mmol/L Chloride 100 (98-107) mmol/L Carbon Dioxide 22 (22-30) mmol/L Anion Gap 14 mmol/L BUN 11 (7-17) mg/dL Creatinine 0.50 L (0.52-1.04) mg/dL Est GFR (MDRD) Af Amer >60 (>60 ml/min/1.73 sqM) Est GFR (MDRD) Non-Af >60 (>60 ml/min/1.73 sqM) Glucose 296 H (74-99) mg/dL Plasma Lactic Acid [place] (0.7-2.0) mmol/L Calcium 9.5 (8.4-10.2) mg/dL Total Bilirubin 1.7 H (0.2-1.3) mg/dL AST 68 H (14-36) U/L ALT 126 H (9-52) U/L Alkaline Phosphatase 110 (38-126) U/L Total Creatine Kinase 111 (30-135) U/L CK-MB (CK-2) 1.3 (0.0-2.4) ng/mL CK-MB (CK-2) Rel Index 1.2 Troponin I <0.012 (0.000-0.034) ng/mL Total Protein 7.2 (6.3-8.2) g/dL Albumin 4.3 (3.5-5.0) g/dL Amylase 33 (30-110) U/L Lipase 52 (23-300) U/L Urine Color Urine Appearance (Clear) Urine pH (5.0-8.0) Ur Specific [place] (1.001-1.035) Urine Protein (Negative) Urine Glucose (UA) (Negative) Urine Ketones (Negative) Urine Blood (Negative) Urine Nitrate (Negative) Urine Bilirubin (Negative) Urine Urobilinogen (<2.0) mg/dL Ur Leukocyte Esterase (Negative) Urine RBC (0-5) /hpf Urine WBC (0-5) /hpf Ur Squamous Epith Cells (0-4) /hpf Urine Bacteria (None) /hpf Urine Mucus (None) /hpf Ur Yeast w Hyphae (None) /hpf 06/29/16 06/29/16 06/29/16 Range/Units 03:50 03:50 04:51 WBC (4.0-11.0) k/uL RBC (3.80-5.40) m/uL Hgb (11.4-16.0) gm/dL Hct (34.0-46.0) % MCV (80.0-100.0) fL MCH (25.0-35.0) pg MCHC (31.0-37.0) g/dL RDW (11.5-15.5) % Plt Count (150-450) k/uL Neutrophils % % Lymphocytes % % Monocytes % % Eosinophils % % Basophils % % Neutrophils # (1.3-7.7) k/uL Lymphocytes # (1.0-4.8) k/uL Monocytes # (0-1.0) k/uL Eosinophils # (0-0.7) k/uL Basophils # (0-0.2) k/uL PT 10.4 (9.0-12.0) sec INR 1.0 (<1.1) APTT 30.8 H (22.0-30.0) sec Sodium (137-145) mmol/L Potassium (3.5-5.1) mmol/L Chloride (98-107) mmol/L Carbon Dioxide (22-30) mmol/L Anion Gap mmol/L BUN (7-17) mg/dL Creatinine (0.52-1.04) mg/dL Est GFR (MDRD) Af Amer (>60 ml/min/1.73 sqM) Est GFR (MDRD) Non-Af (>60 ml/min/1.73 sqM) Glucose (74-99) mg/dL Plasma Lactic Acid [place] 2.3 H* (0.7-2.0) mmol/L Calcium (8.4-10.2) mg/dL Total Bilirubin (0.2-1.3) mg/dL AST (14-36) U/L ALT (9-52) U/L Alkaline Phosphatase (38-126) U/L Total Creatine Kinase (30-135) U/L CK-MB (CK-2) (0.0-2.4) ng/mL CK-MB (CK-2) Rel Index Troponin I (0.000-0.034) ng/mL Total Protein (6.3-8.2) g/dL Albumin (3.5-5.0) g/dL Amylase (30-110) U/L Lipase (23-300) U/L Urine Color Yellow Urine Appearance Cloudy H (Clear) Urine pH 6.0 (5.0-8.0) Ur Specific [place] 1.036 H (1.001-1.035) Urine Protein Negative (Negative) Urine Glucose (UA) 4+ H (Negative) Urine Ketones Trace H (Negative) Urine Blood Negative (Negative) Urine Nitrate Negative (Negative) Urine Bilirubin Negative (Negative) Urine Urobilinogen <2.0 (<2.0) mg/dL Ur Leukocyte Esterase Small H (Negative) Urine RBC 19 H (0-5) /hpf Urine WBC 6 H (0-5) /hpf Ur Squamous Epith Cells 8 H (0-4) /hpf Urine Bacteria Occasional H (None) /hpf Urine Mucus Rare H (None) /hpf Ur Yeast w Hyphae Rare (None) /hpf Disposition Clinical Impression: Abdominal pain, Post-op pain Disposition: ADMITTED IP TO THIS HOSP Condition: Fair Referrals: Gemma Jacob MD [Primary Care Provider] - 1-2 days
[2016-06-29 04:08] LABS: Basophils % (A) 0 %; CHCM 36.9; Eosinophils # (A) 0.1 k/uL (0-0.7); Eosinophils % (A) 1 %; HCT 40.2 % (34.0-46.0); HGB 14.1 gm/dL (11.4-16.0); Luc # (Auto) 0.17; Luc % (Auto) 1; Lymphocytes # (A) 3.4 k/uL (1.0-4.8); Lymphocytes % (A) 24 %; MCH 27.6 pg (25.0-35.0); MCV 78.9 fL (80.0-100.0); Mean Platelet Volume 7.9; Monocytes # (A) 0.6 k/uL (0-1.0); Monocytes % (A) 5 %; Neutrophils # (A) 9.5 k/uL (1.3-7.7); Neutrophils % (A) 69 %; RDW 12.5 % (11.5-15.5); WBC 13.8 k/uL (4.0-11.0); WBC (Perox) 14.19
[2016-06-29 04:17] LABS: Partial Thromboplastin Time 30.8 sec (22.0-30.0); Prothrombin Time 10.4 sec (9.0-12.0)
[2016-06-29 04:19] LABS: ALT 126 U/L (9-52); AST 68 U/L (14-36); Alkaline Phosphatase 110 U/L (38-126); Amylase 33 U/L (30-110); Anion Gap 14 mmol/L; Blood Urea Nitrogen 11 mg/dL (7-17); Calcium 9.5 mg/dL (8.4-10.2); Carbon Dioxide 22 mmol/L (22-30); Chloride 100 mmol/L (98-107); Glucose 296 mg/dL (74-99); Non-African American GFR(MDRD) >60 (>60 ml/min/1.73 sqM); Potassium 4.2 mmol/L (3.5-5.1); Sodium 136 mmol/L (137-145); Total Bilirubin 1.7 mg/dL (0.2-1.3); Total Protein 7.2 g/dL (6.3-8.2)
[2016-06-29 04:44] LABS: Creatine Kinase 111 U/L (30-135)
[2016-06-29 04:57] LABS: Creatine Kinase MB 1.3 ng/mL (0.0-2.4); Troponin I <0.012 ng/mL (0.000-0.034)
[2016-06-29 05:17] LABS: Appearance,Urine Cloudy (Clear); Bacteria,Urine Occasional /hpf; Bilirubin,Urine Negative (Negative); Glucose,Urine (UA) 4+ (Negative); Hyphae Yeast, Urine Rare /hpf; Ketones,Urine Trace (Negative); Leukocyte Esterase,Urine Small (Negative); Mucus,Urine Rare /hpf; Nitrite,Urine Negative (Negative); Particle Count 3349; Protein,Urine Negative (Negative); RBC,Urine 19 /hpf (0-5); Specific Gravity,Urine 1.036 (1.001-1.035); Squamous Epithelial Cell,Urine 8 /hpf (0-4); UA Billing (MACRO vs. MICRO) MICRO; Urobilinogen,Urine <2.0 mg/dL (<2.0); WBC,Urine 6 /hpf (0-5)
[2016-06-29] MEDS: RX INFO: IV CONTRAST WAS GIVEN 1 EACH MISC MISCELLANE PRN ×2 (05:31→05:32)
--- NOTE | 2016-06-29 05:33 | CT ---
EXAMINATION TYPE: CT abdomen pelvis w con DATE OF EXAM: 06/29/2016 5:25 AM COMPARISON: 07/15/2015 HISTORY: Pain post-op cholecystectomy/liver biopsy CT DLP: 1375.40 mGycm Automated exposure control for dose reduction was used. TECHNIQUE: Helical acquisition of images was performed from the lung bases through the pelvis. CONTRAST: Performed without Oral Contrast and with IV Contrast, patient injected with 100 mL of Omnipaque 300. FINDINGS: The lung bases are clear. There is no pleural effusion. Liver spleen pancreas appear normal. Bile lesley ts are not dilated. There are clips from cholecystectomy. There is no adrenal mass. Kidneys show satisfactory contrast op acification. There is no hydronephrosis. There is no retroperitoneal adenopathy. There is no ascites. Bladder distends smoothly. Appendix appears normal. There is a small amount of free fluid in the pel vis. Uterus is anteverted. There is no evidence of a pelvic mass. I see no intestinal wall thickening. The re are no dilated loops. IMPRESSION: THERE IS A SMALL AMOUNT OF FREE FLUID IN THE CUL-DE-SAC OF UNCERTAIN SIGNIFICANCE. CHOLECYSTECTOMY.
[2016-06-29] MEDS ORDERED: SODIUM CHLORIDE 0.9% 1,000 ML IV ONE (05:59)
[2016-06-29 07:19] VITALS: BMI 29.0
[2016-06-29] MEDS: HYDROmorphone 1 MG/ML 1 ML SYRINGE IVP PRN ×2 (09:08→17:48)
[2016-06-29] MEDS ORDERED: ALPRAZolam 0.5 MG TAB PO PRN (09:25)
[2016-06-29 09:52] LABS: Glucose,Whole Blood 80 mg/dL (75-99)
--- NOTE | 2016-06-29 09:57 | P.HPIM ---
History of Present Illness H&P Date: 06/29/16 Chief Complaint: Right upper quadrant and right flank pain The patient is a 20-year-old white female who underwent a laparoscopic cholecystectomy a few days ago by Dr. monroy. Was discharged home. She did also have the liver biopsies for abnormal LFTs at that time. At home with good pain management until last night she developed severe pain in the right upper quadrant and right flank area. She states the pain was intractable. He had diminished appetite. No nausea or vomiting. She presented to the emergency room. Had a CAT scan which showed a small amount of free fluid in the pelvis. No ascites or fluid in the right upper quadrant liver. She was admitted for observation. She was quite tachycardic at the time with a heart rate in the upper 140s. Since admission she seems to have settled out although she still very anxious. She is certain about the Pets home and her parents ill at home as well as her boyfriend. for not being able to come into the hospital to see her because of illness. Past history social history family history well-documented. Does have a history of anxiety on Xanax at home. She is also diabetic. System review as above. No nausea or vomiting. She in fact is hungry. No change in her bowels. No diarrhea. On examination: The patient is awake alert in no acute distress seems a little anxious. Vitals are stable heart rate down to 102 minute. Blood pressure is normal. She is anicteric. Hydration is satisfactory. She is somewhat overweight. Head and neck are normal she is anicteric. Abdomen is quite soft with mild epigastric right upper quadrant tenderness. Trocar sites are normal. No guarding or rebound. Has BS. WBC is mildly elevated to 13,800. Hemoglobin is normal. LFTs mildly elevated. CT was reviewed. Impression upper abdominal pain with tachycardia. Anxiety. Free fluid in the pelvis. Doubt significant leakage. Recommendation we will continue observation started on a liquid diet progressively advance. Discharged tomorrow a.m. if stable. Past Medical History Past Medical History: Asthma, Diabetes Mellitus Additional Past Medical History / Comment(s): polycystic ovaries, TACHYCARDIA, gallbladder problems History of Any Multi-Drug Resistant Organisms: None Reported Past Surgical History: Adenoidectomy, Cholecystectomy, Tonsillectomy Additional Past Surgical History / Comment(s): CYST REMOVAL FROM SINUS CAVITY, NOSE RECONSTRUCTION Past Anesthesia/Blood Transfusion Reactions: No Reported Reaction Past Psychological History: Anxiety, Depression Smoking Status: Former smoker Past Alcohol Use History: None Reported Past Drug Use History: None Reported Additional Drug Use History / Comment(s): PT STATES SMOKES MARIJUANA OCASSIONALY - Past Family History Mother Family Medical History: Thyroid Disorder Additional Family Medical History / Comment(s): GESTATIONAL DIABETIC, BRAIN BLEED, DEPRESSION, ANXIETY Sister(s) Family Medical History: Thyroid Disorder Additional Family Medical History / Comment(s): DEPRESSION, ANXIETY Medications and Allergies Home Medications Medication Instructions Recorded Confirmed Type ALPRAZolam [Xanax] 0.5 mg PO Q8H PRN 11/10/14 06/29/16 History metFORMIN HCL 1,000 mg PO BID 09/19/15 06/29/16 History Insulin Regular [HumuLIN R] See Protocol SQ-PUMP CONTINUOUS 04/22/16 06/29/16 History Ondansetron [Zofran ODT] 4 mg PO Q8HR PRN 06/26/16 06/29/16 History Allergies Allergy/AdvReac Type Severity Reaction Status Date / Time amoxicillin [Amoxicillin] Allergy Severe Rash/Hives Verified 06/29/16 07:26 citalopram hydrobromide Allergy Severe Rash/Hives Verified 06/29/16 07:26 [From Celexa] adhesive Allergy Itching Verified 06/29/16 07:26 adhesive tape Allergy Itching Verified 06/29/16 07:26 pioglitazone HCl [From Actos] Allergy Rash/Hives Verified 06/29/16 07:26 Physical Exam Vitals: Vital Signs Temp Pulse Pulse Resp BP BP Pulse Ox 06/29/16 07:00 102 H 06/29/16 06:28 96.8 F L 102 H 20 137/79 99 06/29/16 06:18 84 16 107/53 97 Intake and Output 06/28/16 06/29/16 06/29/16 22:59 06:59 14:59 Intake Total 0 Balance 0 Intake: Oral 0 Other: Weight 81.647 kg Results CBC & Chem 7: 06/29/16 03:50 06/29/16 03:50 Thrombosis Risk Factor Assmnt - Choose All That Apply Each Factor Represents 1 point: Obesity (BMI >25) Each Risk Factor Represents 2 Points: Arthroscopic surgery Thrombosis Risk Factor Assessment Total Risk Factor Score: 3 Thrombosis Risk Factor Assessment Level: Moderate Risk
[2016-06-29 10:57] LABS: Glucose,Whole Blood 92 mg/dL (75-99)
[2016-06-29] MEDS: HYDROcodone/APAP 7.5-325MG 1 EACH TAB PO PRN ×2 (13:22→20:11)
[2016-06-29] MEDS ORDERED: INSULIN LISPRO (humaLOG) 300 UNIT/3 ML VIAL SQ PRN (14:25)
[2016-06-29] MEDS ORDERED: INSULIN PUMP BASAL RATES 1 EACH MISC MISCELLANE PRN (14:25)
[2016-06-29 16:17] LABS: Hemoglobin A1C 10.7 % (4.2-6.1)
[2016-06-29] MEDS: SODIUM CHLORIDE 0.9% 1,000 ML IV SCH (17:16)
[2016-06-29 17:17] LABS: Glucose,Whole Blood 84 mg/dL (75-99)
[2016-06-29] MEDS: INSULIN PUMP MEAL BOLUS 1 UNIT MISC MISCELLANE SCH ×2 (17:30→20:17)
[2016-06-29 21:21] LABS: Glucose,Whole Blood 249 mg/dL (75-99)
[2016-06-29 23:45] VITALS: RESP 16
[2016-06-30] MEDS: SODIUM CHLORIDE 0.9% 1,000 ML IV SCH (03:07)
[2016-06-30 07:10] LABS: Basophils % (A) 0 %; CH 28.9; CHCM 35.9; Eosinophils # (A) 0.1 k/uL (0-0.7); Eosinophils % (A) 1 %; HCT 34.5 % (34.0-46.0); HDW 3.01; HGB 12.3 gm/dL (11.4-16.0); Luc # (Auto) 0.15; Luc % (Auto) 2; Lymphocytes # (A) 2.3 k/uL (1.0-4.8); Lymphocytes % (A) 27 %; MCH 28.8 pg (25.0-35.0); MCHC 35.6 g/dL (31.0-37.0); Mean Platelet Volume 8.1; Monocytes # (A) 0.5 k/uL (0-1.0); Monocytes % (A) 6 %; Neutrophils # (A) 5.4 k/uL (1.3-7.7); Neutrophils % (A) 64 %; RBC 4.26 m/uL (3.80-5.40); RDW 12.9 % (11.5-15.5); WBC 8.4 k/uL (4.0-11.0); WBC (Perox) 8.76
[2016-06-30 07:22] LABS: ALT 110 U/L (9-52); AST 55 U/L (14-36); Alkaline Phosphatase 60 U/L (38-126); Anion Gap 8 mmol/L; Blood Urea Nitrogen 3 mg/dL (7-17); Calcium 8.2 mg/dL (8.4-10.2); Carbon Dioxide 25 mmol/L (22-30); Chloride 104 mmol/L (98-107); Glucose 108 mg/dL (74-99); Non-African American GFR(MDRD) >60 (>60 ml/min/1.73 sqM); Potassium 3.6 mmol/L (3.5-5.1); Sodium 137 mmol/L (137-145); Total Bilirubin 1.4 mg/dL (0.2-1.3); Total Protein 5.6 g/dL (6.3-8.2)
[2016-06-30] MEDS: INSULIN PUMP MEAL BOLUS 1 UNIT MISC MISCELLANE SCH ×2 (07:30→12:30)
[2016-06-30] MEDS: HYDROcodone/APAP 7.5-325MG 1 EACH TAB PO PRN ×2 (07:41→14:35)
--- NOTE | 2016-06-30 10:11 | CONS ---
DATE OF CONSULTATION: REASON FOR CONSULTATION: Management of chronic medical conditions. HISTORY OF PRESENT ILLNESS: Ms. Hale is a 20-year-old female with a past medical history of diabetes mellitus , asthma, admitted to the hospital with the chief complaint of abdominal pain after undergoing laparoscopic cholecystectomy a few days back . The patient had abnormal LFT deviation at that time and so liver biopsies were also obtained at the time of laparoscopic cholecystectomy. She was doing well until last night when she developed severe abdominal pain in the right upper quadrant and also right flank pain and with diminished appetite she was admitted to the hospital for further evaluation and management. Patient did have a CT scan of the abdomen showing a small amount of free fluid in the pelvis. She was given pain medications. The patient states that her pain has improved. She denies having any nausea or vomiting or diarrhea. Denies having any chest pain, any difficulty in breathing. No complaints of urinary tract infection. The patient has history of diabetes mellitus and is on an insulin pump. The patient's lactic acid at the time of admission was elevated to 2.3 and the repeat this morning is 2.1. White count has been 13.8. REVIEW OF SYSTEMS: All 13 review of systems are done and negative except for ones mentioned in the HPI. Past medical history is significant for hypertension, elevated liver enzymes and obesity. ALLERGIES: AMOXICILLIN, CITALOPRAM, ADHESIVE TAPE. Patient's home medications: 1. Xanax 0.5 mg p.o. q.8 hours p.r.n. for anxiety. 2. Metformin 1000 mg p.o. b.i.d. 3. Insulin pump. 4. Zofran 4 mg p.o. q.8 hours p.r.n. for nausea. 5. [place] 5/325, 1 tablet p.o. q.4 hours p.r.n. for pain. PAST SURGICAL HISTORY: Adenoidectomy, hysterectomy, tonsillectomy. SOCIAL HISTORY: The patient is a former smoker and smokes marijuana occasionally. Family history is positive for anxiety and depression thyroid disorder. On examination, patient's vitals: Temperature is 97, heart rate of 99, respiratory rate 24, blood pressure is 118/70, saturating at 97% on room air. Patient appears to be in no acute distress. HEAD: Atraumatic, normocephalic. EYES: Pupils, round, and reactive to light. CARDIOVASCULAR: S1, S2 heard. LUNGS: Bilateral breath sounds are positive. No wheeze or crackles. ABDOMEN: Soft. Mild tenderness in the right upper quadrant. The patient has cholecystectomy course. No signs of any active infection. EXTREMITIES: No edema. No cyanosis, no clubbing. 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 PSYCHIATRIC: Appropriate mood and affect. SKIN: No rash. MUSCULOSKELETAL: No joint swellings or deformities. The patient's labs: White count of 13.8, hemoglobin is 14.1, platelets of 296, sodium 136, potassium 4.2, chloride 100, bicarb 22, BUN 11, creatinine 0.50. Lactic acid 2.3. Repeat is 1.0, AST 68. ALT is 126. Urine is positive for small leukocyte esterase and 4+ glucose. Negative for nitrites. ASSESSMENT AND PLAN: 1. Acute abdominal pain, status post laparoscopic cholecystectomy. Patient had a CT scan that was within normal limits. We will continue to monitor for any signs of peritonitis. 2. Slightly elevated white count with increased lactic acid, most likely secondary to stress that is postop. 3. Diabetes mellitus, Type 2 insulin-dependent to continue with insulin pump and monitor CBGs 4. History of anxiety/depression. PLAN: The plan is to continue the patient on her insulin pump. Monitor for any signs of infection. Will check her CBC and CMP in the a.m. Continue with the rest of her medication regimen. Further recommendations to follow depending on the progress of the patient. DAVID
[2016-06-30 11:37] VITALS: BP 108/59; PULSE 112
[2016-06-30 12:15] LABS: Glucose,Whole Blood 136 mg/dL (75-99)
--- NOTE | 2016-06-30 15:45 | P.DS ---
Providers Date of admission: 06/29/16 05:58 Expected date of discharge: 06/30/16 Attending physician: Tuan Villa Consults: 06/29/16 12:46 Consult Physician Urgent Consulting Provider: [facility] Consult Reason/Comments: medical management Do you want consulting provider notified?: Yes Primary care physician: Gemma Jacob Patient Condition at Discharge: Fair Plan - Discharge Summary Discharge Medication List ALPRAZolam [Xanax] 0.5 mg PO Q8H PRN 11/10/14 [History] metFORMIN HCL 1,000 mg PO BID 09/19/15 [History] Insulin Regular [HumuLIN R] See Protocol SQ-PUMP CONTINUOUS 04/22/16 [History] Ondansetron [Zofran ODT] 4 mg PO Q8HR PRN 06/26/16 [History] Hydrocodone/Acetaminophen [[place] 5-325] 1 - 2 tab PO Q4HR PRN 06/29/16 [History] Follow up Appointment(s)/Referral(s): Vinny Jacob MD [Medical Doctor] - 3 Days Gemma Jacob MD [Primary Care Provider] - 2 Weeks Activity/Diet/Wound Care/Special Instructions: Low fat diet, No heavy lifting for 1 week.
--- NOTE | 2016-06-30 15:50 | P.PN ---
Progress Note - Text Patient is stable. Feels really good today. No abdominal pain. Tolerated a full breakfast and lunch today. Good movement movement. She is anxious to go home. On examination patient is awake alert cheerful in no distress. Afebrile. Did do a week early hours of this morning with a temperature of 100.8 but otherwise remained afebrile throughout the remainder of her hospitalization. She is anicteric color hydration are good. The abdomen is very soft and benign , no significant tenderness. Trocar sites look fine. Impression resolved abdominal pain status post laparoscopic cholecystectomy. Plan patient will be discharged today. Follow-up with Dr. Jacob 4 to 5 days. Low-fat diet. No heavy lifting for a week. May resume her home meds.
[2016-06-30 17:00] VITALS: TEMP 98.6
--- NOTE | 2016-07-01 12:23 | PN ---
INTERVAL HISTORY: Ms. Hale is a 20-year-old female with a past medical history of diabetes mellitus, asthma, admitted to the hospital with a chief complaint of abdominal pain after undergoing laparoscopic cholecystectomy a few days back. Patient also had elevated LFTs so during the procedure, patient also had biopsies of the liver taken. Patient did have a CT scan of the abdomen which is showing a small amount of free fluid in the pelvis. She had an elevated white count with fevers. Patient was then given IV fluids and pain medications. Patient's white count did trend 7.8. Today she is sitting up in the bed, appears to be in no acute distress. She does not have any complaints. REVIEW OF SYSTEMS: CONSTITUTIONAL: Denies having any fevers, chills or rigors. RESPIRATORY: No cough. No difficulty in breathing. GI: No abdominal pain, nausea, vomiting, or diarrhea. : No dysuria or hematuria. Patient's medications have been reviewed. On examination, patient's vital signs: Temperature of 98.6, heart rate, one tens to 120s, respiratory rate 16, blood pressure 108/59, saturating at 95% on room air. GENERAL EXAMINATION: Patient appears to be in no acute distress. HEAD: Atraumatic, normocephalic. EYES: Pupils round and reactive to light. No icterus. No pallor. NECK: No JVD. CARDIOVASCULAR: S1, S2 heard. LUNGS: Bilateral breath sounds are positive. GI: Abdomen is soft, nontender. Bowel sounds are positive. EXTREMITIES: No edema. No cyanosis, no clubbing. Peripheral pulses are felt. 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 No focal neurological deficits. Patient's labs from this morning, white count of 8.4, hemoglobin 12.3, platelets of 240. Sodium 137, potassium 3.6, chloride 104, bicarb 25, BUN 3, creatinine 0.50. ASSESSMENT AND PLAN: 1. Acute abdominal pain, status post laparoscopic cholecystectomy. Patient had a CAT scan within normal limits showing only minimal amount of fluid in the pelvis. Patient's pain has subsided and no signs of peritonitis. 2. Elevated white count with fever. Patient still has low-grade fevers but her white count came down to 7.8 this morning and no other signs suggestive of sepsis. 3. Diabetes mellitus type 2, insulin-dependent. Continue with her insulin pump. 4. History of anxiety and depression. PLAN: The patient was already being planned for discharge by the surgical team. I spoke in detail with the patient regarding her condition. There are no active signs of infection currently but the patient is made aware that in case she develops any abdominal pain or any fevers, that she has to come back and also advised to follow up with Dr. Jacob in 2 to 3 days for postop follow-up.
== END 2016-06-30 17:44 | disposition home or self-care (01) ==
LOC: EC 03:20 → 6PED 05:58
PROVIDERS: ADMIT Surgery; ATTEND Surgery
DX: G89.18 Other acute postprocedural pain (principal); R10.11 Right upper quadrant pain; R79.89 Other specified abnormal findings of blood chemistry; R50.9 Fever, unspecified; D72.829 Elevated white blood cell count, unspecified; E11.9 Type 2 diabetes mellitus without complications; J45.909 Unspecified asthma, uncomplicated; F41.9 Anxiety disorder, unspecified; F12.90 Cannabis use, unspecified, uncomplicated; Z79.84 Long term (current) use of oral hypoglycemic drugs; Z79.4 Long term (current) use of insulin; Z88.0 Allergy status to penicillin; Z88.8 Allergy status to other drugs, medicaments and biological substances; Z87.891 Personal history of nicotine dependence
CPT/HCPCS: 36415; 80053 ×2; 82150; 83036; 82550; 82553; 83605; 83690; 84484; 85025 ×2; 85610; 85730; 81001; 87086; 74177; 99285; 96374; 96375 ×3; 96361 ×3; G0378 ×2; J2060; J2270; J2405; J1170; Q9967; C9113; 96376

== ENCOUNTER 2016-07-15 16:22 | Emergency (ER) | payer OTHER ==
[2016-07-15 16:42] VITALS: RESP 18
[2016-07-15] MEDS ORDERED: ONDANSETRON 4 MG/2 ML VIAL IVP STA (17:10)
[2016-07-15] MEDS ORDERED: SODIUM CHLORIDE 0.9% 1,000 ML IV STA (17:10)
[2016-07-15] MEDS ORDERED: HYDROmorphone 1 MG/ML 1 ML SYRINGE IVP STA (17:10)
[2016-07-15 17:54] LABS: Basophils % (A) 0 %; CHCM 35.9; Eosinophils # (A) 0.1 k/uL (0-0.7); Eosinophils % (A) 1 %; HCT 40.5 % (34.0-46.0); HDW 3.05; HGB 14.1 gm/dL (11.4-16.0); Luc # (Auto) 0.26; Luc % (Auto) 3; Lymphocytes # (A) 2.2 k/uL (1.0-4.8); Lymphocytes % (A) 26 %; MCH 28.2 pg (25.0-35.0); MCHC 34.8 g/dL (31.0-37.0); MCV 81.1 fL (80.0-100.0); Mean Platelet Volume 6.9; Monocytes # (A) 0.3 k/uL (0-1.0); Monocytes % (A) 4 %; Neutrophils # (A) 5.6 k/uL (1.3-7.7); Neutrophils % (A) 65 %; WBC 8.6 k/uL (4.0-11.0); WBC (Perox) 8.79
--- NOTE | 2016-07-15 17:58 | ED ---
Abdominal Pain HPI - General Chief Complaint: Abdominal Pain Stated Complaint: Abdominal Pain Time Seen by Provider: 07/15/16 17:10 Source: patient, RN notes reviewed Mode of arrival: ambulatory Limitations: no limitations - History of Present Illness Initial Comments: 20-year-old female presents emergency Department chief complaint right upper quadrant abdominal pain. Patient is well-known emergency department. Patient states she'll call her second 2 weeks ago. Patient states she was placed in observation telemetry after her surgery secondary to increased pain. Patient states also during her course x-ray they did a liver biopsy. Patient states that this was done by Dr. lentz. Patient denies any nausea vomiting diarrhea constipation. Patient states she's not currently taking any pain medication. Patient states her blood sugar has been within normal limits. She states that she was just concerned as she has had some increase in pain. She states it's not as bad as it was. - Related Data Home Medications Medication Instructions Recorded Confirmed ALPRAZolam [Xanax] 0.5 mg PO Q8H PRN 11/10/14 07/15/16 metFORMIN HCL 1,000 mg PO BID 09/19/15 07/15/16 Insulin Regular [HumuLIN R] See Protocol SQ-PUMP CONTINUOUS 04/22/16 07/15/16 Previous Rx's Medication Instructions Recorded Hydrocodone/Acetaminophen [[facility] 1 tab PO Q6HR PRN #10 tab 07/15/16 5-325] Allergies Allergy/AdvReac Type Severity Reaction Status Date / Time amoxicillin [Amoxicillin] Allergy Severe Rash/Hives Verified 07/15/16 17:27 citalopram hydrobromide Allergy Severe Rash/Hives Verified 07/15/16 17:27 [From Celexa] adhesive Allergy Itching Verified 07/15/16 17:27 adhesive tape Allergy Itching Verified 07/15/16 17:27 pioglitazone HCl [From Actos] Allergy Rash/Hives Verified 07/15/16 17:27 Review of Systems ROS Statement: Those systems with pertinent positive or pertinent negative responses have been documented in the HPI. ROS Other: All systems not noted in ROS Statement are negative. Past Medical History Past Medical History: Asthma, Diabetes Mellitus Additional Past Medical History / Comment(s): polycystic ovaries, TACHYCARDIA, gallbladder problems History of Any Multi-Drug Resistant Organisms: None Reported Past Surgical History: Adenoidectomy, Cholecystectomy, Tonsillectomy Additional Past Surgical History / Comment(s): CYST REMOVAL FROM SINUS CAVITY, NOSE RECONSTRUCTION Past Anesthesia/Blood Transfusion Reactions: No Reported Reaction Past Psychological History: Anxiety, Depression Smoking Status: Former smoker Past Alcohol Use History: None Reported Past Drug Use History: None Reported Additional Drug Use History / Comment(s): PT STATES SMOKES MARIJUANA OCASSIONALY - Past Family History Mother Family Medical History: Thyroid Disorder Additional Family Medical History / Comment(s): GESTATIONAL DIABETIC, BRAIN BLEED, DEPRESSION, ANXIETY Sister(s) Family Medical History: Thyroid Disorder Additional Family Medical History / Comment(s): DEPRESSION, ANXIETY General Exam Limitations: no limitations General appearance: alert, in no apparent distress Neck exam: Present: normal inspection. Absent: tenderness, meningismus, lymphadenopathy Respiratory exam: Present: normal lung sounds bilaterally. Absent: respiratory distress, wheezes, rales, rhonchi, stridor Cardiovascular Exam: Present: normal rhythm, tachycardia, normal heart sounds. Absent: systolic murmur, diastolic murmur, rubs, gallop, clicks GI/Abdominal exam: Present: soft, tenderness (Mild to moderate right upper quadrant tenderness), normal bowel sounds, other (Surgical incisions closed, healing well with no erythema no purulent drainage). Absent: distended, guarding, rebound, rigid Back exam: Absent: CVA tenderness (R), CVA tenderness (L) Neurological exam: Present: alert, oriented X3, CN II-XII intact Skin exam: Present: warm, dry, intact, normal color. Absent: rash Course Vital Signs 07/15/16 16:39 Temperature 98.0 F Pulse Rate 112 H Respiratory 18 Rate Blood Pressure 139/84 O2 Sat by Pulse 98 Oximetry Medical Decision Making - Lab Data Result diagrams: 07/15/16 17:39 07/15/16 17:39 Lab Results 07/15/16 07/15/16 07/15/16 Range/Units 17:39 17:39 17:39 WBC 8.6 (4.0-11.0) k/uL RBC 5.00 (3.80-5.40) m/uL Hgb 14.1 (11.4-16.0) gm/dL Hct 40.5 (34.0-46.0) % MCV 81.1 (80.0-100.0) fL MCH 28.2 (25.0-35.0) pg MCHC 34.8 (31.0-37.0) g/dL RDW 13.0 (11.5-15.5) % Plt Count 334 (150-450) k/uL Neutrophils % 65 % Lymphocytes % 26 % Monocytes % 4 % Eosinophils % 1 % Basophils % 0 % Neutrophils # 5.6 (1.3-7.7) k/uL Lymphocytes # 2.2 (1.0-4.8) k/uL Monocytes # 0.3 (0-1.0) k/uL Eosinophils # 0.1 (0-0.7) k/uL Basophils # 0.0 (0-0.2) k/uL Sodium 142 (137-145) mmol/L Potassium 4.5 (3.5-5.1) mmol/L Chloride 103 (98-107) mmol/L Carbon Dioxide 25 (22-30) mmol/L Anion Gap 14 mmol/L BUN 10 (7-17) mg/dL Creatinine 0.52 (0.52-1.04) mg/dL Est GFR (MDRD) Af Amer >60 (>60 ml/min/1.73 sqM) Est GFR (MDRD) Non-Af >60 (>60 ml/min/1.73 sqM) Glucose 264 H (74-99) mg/dL Calcium 9.6 (8.4-10.2) mg/dL Total Bilirubin 1.3 (0.2-1.3) mg/dL AST 61 H (14-36) U/L ALT 123 H (9-52) U/L Alkaline Phosphatase 140 H (38-126) U/L Total Protein 7.5 (6.3-8.2) g/dL Albumin 4.4 (3.5-5.0) g/dL Amylase 60 (30-110) U/L Lipase 54 (23-300) U/L Urine Color Urine Appearance (Clear) Urine pH (5.0-8.0) Ur Specific [place] (1.001-1.035) Urine Protein (Negative) Urine Glucose (UA) (Negative) Urine Ketones (Negative) Urine Blood (Negative) Urine Nitrate (Negative) Urine Bilirubin (Negative) Urine Urobilinogen (<2.0) mg/dL Ur Leukocyte Esterase (Negative) Urine RBC (0-5) /hpf Urine WBC (0-5) /hpf Ur Squamous Epith Cells (0-4) /hpf Urine HCG, Qual Not Detected (Not Detectd) Urine Opiates Screen (NotDetected) Ur Oxycodone Screen (NotDetected) Urine Methadone Screen (NotDetected) Ur Propoxyphene Screen (NotDetected) Ur Barbiturates Screen (NotDetected) U Tricyclic Antidepress (NotDetected) Ur Phencyclidine Scrn (NotDetected) Ur Amphetamines Screen (NotDetected) U Methamphetamines Scrn (NotDetected) U Benzodiazepines Scrn (NotDetected) Urine Cocaine Screen (NotDetected) U Marijuana (THC) Screen (NotDetected) 07/15/16 Range/Units 17:39 WBC (4.0-11.0) k/uL RBC (3.80-5.40) m/uL Hgb (11.4-16.0) gm/dL Hct (34.0-46.0) % MCV (80.0-100.0) fL MCH (25.0-35.0) pg MCHC (31.0-37.0) g/dL RDW (11.5-15.5) % Plt Count (150-450) k/uL Neutrophils % % Lymphocytes % % Monocytes % % Eosinophils % % Basophils % % Neutrophils # (1.3-7.7) k/uL Lymphocytes # (1.0-4.8) k/uL Monocytes # (0-1.0) k/uL Eosinophils # (0-0.7) k/uL Basophils # (0-0.2) k/uL Sodium (137-145) mmol/L Potassium (3.5-5.1) mmol/L Chloride (98-107) mmol/L Carbon Dioxide (22-30) mmol/L Anion Gap mmol/L BUN (7-17) mg/dL Creatinine (0.52-1.04) mg/dL Est GFR (MDRD) Af Amer (>60 ml/min/1.73 sqM) Est GFR (MDRD) Non-Af (>60 ml/min/1.73 sqM) Glucose (74-99) mg/dL Calcium (8.4-10.2) mg/dL Total Bilirubin (0.2-1.3) mg/dL AST (14-36) U/L ALT (9-52) U/L Alkaline Phosphatase (38-126) U/L Total Protein (6.3-8.2) g/dL Albumin (3.5-5.0) g/dL Amylase (30-110) U/L Lipase (23-300) U/L Urine Color Light Yellow Urine Appearance Clear (Clear) Urine pH 6.0 (5.0-8.0) Ur Specific [place] 1.025 (1.001-1.035) Urine Protein Negative (Negative) Urine Glucose (UA) 4+ H (Negative) Urine Ketones Negative (Negative) Urine Blood Negative (Negative) Urine Nitrate Negative (Negative) Urine Bilirubin Negative (Negative) Urine Urobilinogen <2.0 (<2.0) mg/dL Ur Leukocyte Esterase Negative (Negative) Urine RBC <1 (0-5) /hpf Urine WBC <1 (0-5) /hpf Ur Squamous Epith Cells 2 (0-4) /hpf Urine HCG, Qual (Not Detectd) Urine Opiates Screen Not Detected (NotDetected) Ur Oxycodone Screen Not Detected (NotDetected) Urine Methadone Screen Not Detected (NotDetected) Ur Propoxyphene Screen Not Detected (NotDetected) Ur Barbiturates Screen Not Detected (NotDetected) U Tricyclic Antidepress Not Detected (NotDetected) Ur Phencyclidine Scrn Not Detected (NotDetected) Ur Amphetamines Screen Not Detected (NotDetected) U Methamphetamines Scrn Not Detected (NotDetected) U Benzodiazepines Scrn Not Detected (NotDetected) Urine Cocaine Screen Not Detected (NotDetected) U Marijuana (THC) Screen Detected H (NotDetected) Disposition Clinical Impression: Abdominal pain, Post-op pain Disposition: HOME SELF-CARE Condition: Stable Instructions: Abdominal Pain (ED) Additional Instructions: Please return to the Emergency Department if symptoms worsen or any other concerns. Prescriptions: Hydrocodone/Acetaminophen [[facility] 5-325] 1 tab PO Q6HR PRN #10 tab PRN Reason: Pain Referrals: Gemma Jacob MD [Primary Care Provider] - 1-2 days Vinny Jacob MD [Medical Doctor] - 1-2 days Time of Disposition: 18:49
[2016-07-15 18:11] LABS: Particle Count 490; RBC,Urine <1 /hpf (0-5); Squamous Epithelial Cell,Urine 2 /hpf (0-4); WBC,Urine <1 /hpf (0-5)
[2016-07-15 18:12] LABS: ALT 123 U/L (9-52); AST 61 U/L (14-36); Alkaline Phosphatase 140 U/L (38-126); Amylase 60 U/L (30-110); Anion Gap 14 mmol/L; Blood Urea Nitrogen 10 mg/dL (7-17); Calcium 9.6 mg/dL (8.4-10.2); Carbon Dioxide 25 mmol/L (22-30); Chloride 103 mmol/L (98-107); Glucose 264 mg/dL (74-99); Non-African American GFR(MDRD) >60 (>60 ml/min/1.73 sqM); Potassium 4.5 mmol/L (3.5-5.1); Sodium 142 mmol/L (137-145); Total Bilirubin 1.3 mg/dL (0.2-1.3); Total Protein 7.5 g/dL (6.3-8.2)
[2016-07-15 18:20] LABS: Appearance,Urine Clear (Clear); Specific Gravity,Urine 1.025 (1.001-1.035)
[2016-07-15 18:21] LABS: Bilirubin,Urine Negative (Negative); Glucose,Urine (UA) 4+ (Negative); Ketones,Urine Negative (Negative); Leukocyte Esterase,Urine Negative (Negative); Nitrite,Urine Negative (Negative); Protein,Urine Negative (Negative); UA Billing (MACRO vs. MICRO) CHEM; Urobilinogen,Urine <2.0 mg/dL (<2.0)
--- NOTE | 2016-07-15 18:31 | XR ---
EXAMINATION TYPE: XR KUB DATE OF EXAM: 07/15/2016 6:23 PM COMPARISON: 06/12/2016 HISTORY: Right upper quadrant pain TECHNIQUE: 2 views FINDINGS: Bowel gas pattern is normal. There is no sign of intestinal obstruction or pneumoperitoneum . Fecal pattern is normal. There are clips from cholecystectomy. Lung bases are clear. There are no p athologic calcifications. Bony structures are intact. IMPRESSION: Nonacute abdomen. No change.
[2016-07-15 19:06] VITALS: BP 127/78; PULSE 96; TEMP 98.7
== END 2016-07-15 19:06 | disposition home or self-care (01) ==
LOC: EC 16:22
DX: R10.11 Right upper quadrant pain (principal); G89.18 Other acute postprocedural pain; F12.90 Cannabis use, unspecified, uncomplicated; Z87.891 Personal history of nicotine dependence; Z88.0 Allergy status to penicillin; Z91.048 Other nonmedicinal substance allergy status; Z88.8 Allergy status to other drugs, medicaments and biological substances; Z79.84 Long term (current) use of oral hypoglycemic drugs; Z79.4 Long term (current) use of insulin
CPT/HCPCS: 99284; 96374; 96375; 36415; 80053; 82150; 83690; 85025; 81003; 81025; 80306; 74000; J2405; J1170; 99282

== ENCOUNTER 2016-08-07 20:28 | Emergency (ER) | payer OTHER ==
[2016-08-07 21:49] VITALS: BP 153/90; PULSE 108; RESP 18; TEMP 98.1
--- NOTE | 2016-08-07 22:35 | ED ---
General Adult HPI - General Chief complaint: Dental/Oral Stated complaint: Dental Pain Time Seen by Provider: 08/07/16 22:28 Source: patient, RN notes reviewed Mode of arrival: ambulatory Limitations: no limitations - History of Present Illness Initial comments: Patient 20-year-old female who presents emergency room today with chief complaint of increased dental pain. Does admit to pain locally to tooth #1. Patient does admit that she was in tooth is pushing through. Does admit that she feels some pain radiating 4. Denies any drainage or discharge. Denies any other complaints. Patient denies any recent fever, chills, shortness of breath, chest pain, back pain, abdominal pain, nausea or vomiting, numbness or tingling , dysuria or hematuria, constipation or diarrhea, headaches or visual changes, or any other complaints. - Related Data Home Medications Medication Instructions Recorded Confirmed ALPRAZolam [Xanax] 0.5 mg PO Q8H PRN 11/10/14 08/07/16 metFORMIN HCL 1,000 mg PO BID 09/19/15 08/07/16 Insulin Regular [HumuLIN R] See Protocol SQ-PUMP CONTINUOUS 04/22/16 08/07/16 Previous Rx's Medication Instructions Recorded Clindamycin HCl [Cleocin] 300 mg PO Q8H 10 Days 08/07/16 Ibuprofen [Motrin] 600 mg PO Q6HR PRN #40 day 08/07/16 Allergies Allergy/AdvReac Type Severity Reaction Status Date / Time amoxicillin [Amoxicillin] Allergy Severe Rash/Hives Verified 08/07/16 21:49 citalopram hydrobromide Allergy Severe Rash/Hives Verified 08/07/16 21:49 [From Celexa] adhesive Allergy Itching Verified 08/07/16 21:49 adhesive tape Allergy Itching Verified 08/07/16 21:49 pioglitazone HCl [From Actos] Allergy Rash/Hives Verified 08/07/16 21:49 Review of Systems ROS Statement: Those systems with pertinent positive or pertinent negative responses have been documented in the HPI. ROS Other: All systems not noted in ROS Statement are negative. Past Medical History Past Medical History: Asthma, Diabetes Mellitus Additional Past Medical History / Comment(s): polycystic ovaries, TACHYCARDIA, gallbladder problems History of Any Multi-Drug Resistant Organisms: None Reported Past Surgical History: Adenoidectomy, Cholecystectomy, Tonsillectomy Additional Past Surgical History / Comment(s): CYST REMOVAL FROM SINUS CAVITY, NOSE RECONSTRUCTION Past Anesthesia/Blood Transfusion Reactions: No Reported Reaction Past Psychological History: Anxiety, Depression Smoking Status: Former smoker Past Alcohol Use History: None Reported Past Drug Use History: Marijuana Additional Drug Use History / Comment(s): PT STATES SMOKES MARIJUANA OCASSIONALY - Past Family History Mother Family Medical History: Thyroid Disorder Additional Family Medical History / Comment(s): GESTATIONAL DIABETIC, BRAIN BLEED, DEPRESSION, ANXIETY Sister(s) Family Medical History: Thyroid Disorder Additional Family Medical History / Comment(s): DEPRESSION, ANXIETY General Exam - General Exam Comments Initial Comments: General: The patient is awake and alert, in no distress, and does not appear acutely ill. Eye: Pupils are equal, round and reactive to light, extra-ocular movements are intact. No nystagmus. There is normal conjunctiva bilaterally. No signs of icterus. Ears, nose, mouth and throat: There are moist mucous membranes and no oral lesions. Mild tenderness over the gumline of tooth #1. No sign of abscess. Uvula midline. Swallows without difficulty. Neck: The neck is supple, there is no tenderness or JVD. Cardiovascular: There is a regular rate and rhythm. No murmur, rub or gallop is appreciated. Respiratory: Lungs are clear to auscultation, respirations are non-labored, breath sounds are equal. No wheezes, stridor, rales, or rhonchi. Musculoskeletal: Normal ROM, no tenderness. Strength 5/5. Sensation intact. Pulses equal bilaterally 2+. Neurological: A&O x 3. CN II-XII intact, There are no obvious motor or sensory deficits. Coordination appears grossly intact. Speech is normal. Skin: Skin is warm and dry and no rashes or lesions are noted. Psychiatric: Cooperative, appropriate mood & affect, normal judgment. Limitations: no limitations Course Vital Signs 08/07/16 21:47 Temperature 98.1 F Pulse Rate 108 H Respiratory 18 Rate Blood Pressure 153/90 O2 Sat by Pulse 99 Oximetry Medical Decision Making - Medical Decision Making Please use medication as discussed. Please follow-up with dentist over the next 5 days. Please return to emergency room if the symptoms increase or worsen or for any other concerns. Disposition Clinical Impression: Pain, dental Disposition: HOME SELF-CARE Condition: Good Instructions: Toothache (ED) Additional Instructions: Please use medication as discussed. Please follow-up with family doctor in the next 2 days of symptoms have not improved. Please return to emergency room if the symptoms increase or worsen or for any other concerns. Prescriptions: Clindamycin HCl [Cleocin] 300 mg PO Q8H 10 Days Ibuprofen [Motrin] 600 mg PO Q6HR PRN #40 day PRN Reason: Pain Time of Disposition: 22:34
== END 2016-08-07 22:46 | disposition home or self-care (01) ==
LOC: EC 20:28
DX: K08.89 Other specified disorders of teeth and supporting structures (principal); E11.9 Type 2 diabetes mellitus without complications; Z88.0 Allergy status to penicillin; Z88.8 Allergy status to other drugs, medicaments and biological substances; Z79.4 Long term (current) use of insulin; Z79.84 Long term (current) use of oral hypoglycemic drugs; Z96.41 Presence of insulin pump (external) (internal); Z87.891 Personal history of nicotine dependence; Z91.048 Other nonmedicinal substance allergy status
CPT/HCPCS: 99282

== ENCOUNTER 2016-08-14 14:09 | Emergency (ER) | payer OTHER ==
--- NOTE | 2016-08-14 15:51 | ED ---
ENT HPI - General Chief complaint: Dental/Oral Stated complaint: dental Time Seen by Provider: 08/14/16 15:22 Source: patient, RN notes reviewed Mode of arrival: ambulatory Limitations: no limitations - History of Present Illness Initial comments: Patient is a 20-year-old female presents emergency room for a repeat visit for dental pain. Patient reports that she has pain over tooth #10. She states that she was placed on clindamycin and interesting Motrin Tylenol for pain. Patient reports Motrin Tylenol for pain. Patient states she is completely antibiotics and is concerned that there may still be an infection. She denies any fever or chills drainage around the tooth. She denies any tongue swelling. She states that it causes pain with eating and drinking were cold air going over her tooth. She is able to open and close her scalp. - Related Data Home Medications Medication Instructions Recorded Confirmed ALPRAZolam [Xanax] 0.5 mg PO Q8H PRN 11/10/14 08/14/16 metFORMIN HCL 1,000 mg PO BID 09/19/15 08/14/16 Insulin Regular [HumuLIN R] See Protocol SQ-PUMP CONTINUOUS 04/22/16 08/14/16 Previous Rx's Medication Instructions Recorded Ibuprofen [Motrin] 600 mg PO Q6HR PRN #40 day 08/07/16 Allergies Allergy/AdvReac Type Severity Reaction Status Date / Time amoxicillin [Amoxicillin] Allergy Severe Rash/Hives Verified 08/14/16 14:28 citalopram hydrobromide Allergy Severe Rash/Hives Verified 08/14/16 14:28 [From Celexa] adhesive Allergy Itching Verified 08/14/16 14:28 adhesive tape Allergy Itching Verified 08/14/16 14:28 pioglitazone HCl [From Actos] Allergy Rash/Hives Verified 08/14/16 14:28 codeine AdvReac Rash/Hives Verified 08/14/16 16:05 Review of Systems ROS Statement: Those systems with pertinent positive or pertinent negative responses have been documented in the HPI. ROS Other: All systems not noted in ROS Statement are negative. Past Medical History Past Medical History: Asthma, Diabetes Mellitus Additional Past Medical History / Comment(s): polycystic ovaries, TACHYCARDia History of Any Multi-Drug Resistant Organisms: None Reported Past Surgical History: Adenoidectomy, Cholecystectomy, Tonsillectomy Additional Past Surgical History / Comment(s): CYST REMOVAL FROM SINUS CAVITY, NOSE RECONSTRUCTION Past Anesthesia/Blood Transfusion Reactions: No Reported Reaction Past Psychological History: Anxiety, Depression Smoking Status: Former smoker Past Alcohol Use History: None Reported Past Drug Use History: Marijuana Additional Drug Use History / Comment(s): PT STATES SMOKES MARIJUANA OCASSIONALY - Past Family History Mother Family Medical History: Thyroid Disorder Additional Family Medical History / Comment(s): GESTATIONAL DIABETIC, BRAIN BLEED, DEPRESSION, ANXIETY Sister(s) Family Medical History: Thyroid Disorder Additional Family Medical History / Comment(s): DEPRESSION, ANXIETY General Exam - General Exam Comments Initial Comments: Well-appearing 20-year-old female. No acute distress. Limitations: no limitations General appearance: alert, in no apparent distress Head exam: Present: atraumatic, normocephalic, normal inspection Eye exam: Present: normal appearance, PERRL, EOMI. Absent: scleral icterus, conjunctival injection, periorbital swelling ENT exam: Present: normal exam, mucous membranes moist Neck exam: Present: normal inspection, full ROM. Absent: tenderness, meningismus, lymphadenopathy Respiratory exam: Present: normal lung sounds bilaterally. Absent: respiratory distress, wheezes, rales, rhonchi, stridor Cardiovascular Exam: Present: regular rate, normal rhythm, normal heart sounds. Absent: systolic murmur, diastolic murmur, rubs, gallop, clicks GI/Abdominal exam: Present: soft, normal bowel sounds. Absent: distended, tenderness, guarding, rebound, rigid Extremities exam: Present: normal inspection, full ROM, normal capillary refill. Absent: tenderness, pedal edema, joint swelling, calf tenderness Back exam: Present: normal inspection Neurological exam: Present: alert, oriented X3, CN II-XII intact Psychiatric exam: Present: normal affect, normal mood Skin exam: Present: warm, dry, intact, normal color. Absent: rash Course Vital Signs 08/14/16 08/14/16 14:25 16:03 Temperature 97.3 F L 98.5 F Pulse Rate 110 H 105 H Respiratory 16 18 Rate Blood Pressure 143/93 135/81 O2 Sat by Pulse 95 97 Oximetry Medical Decision Making - Medical Decision Making Patient is a 20-year-old female complaining of chronic dental pain on tooth # 10. Patient has no signs of infection with redness or drainage or swelling. There is no evidence of cavities in her teeth. Patient reports that she has not been managed with Motrin Tylenol. Denies patient right over Tylenol 3. She then stated that she has an ALLERGIC reaction to the Tylenol with codeine and she usually needs to have [place]. I discussed the patient does not need received [place] at this time is infection or swelling or any dental cariesat this time. Patient has been advised to follow-up with a primary care provider or the dental clinic her pain continues to persist. Patient understands and will comply. Patient was stating that after she was told she would not receive any [place] that she is not necessarily ALLERGIC to Tylenol codeine. We stated that she did state she is allergic and that she is not allowed to receive a Tylenol 3 prescription. Patient left the emergency department upset. Patient will be advised to follow-up with primary care in the dental clinic if any further pain occurs. Disposition Clinical Impression: Pain, dental Disposition: HOME SELF-CARE Condition: Good Instructions: Toothache (ED) Additional Instructions: Is advised to continue to apply Orajel over the area. Also follow-up with primary care if symptoms continue to persist or concerns for signs of infection. Patient also advised to follow-up with dental instructions. [facility] [place] [address] [place] [address] [phone] (existing clients only) For new clients: [phone] 1st consult: $50 (includes Xrays) Usually 30% less then private dentist for visits after. [employer] [facility] [employer] Have to pay $50 for Xrays anmd rest is covered. [phone] Referrals: Gemma Jacob MD [Primary Care Provider] - 1-2 days Time of Disposition: 15:49
[2016-08-14 16:04] VITALS: BP 135/81; PULSE 105; RESP 18; TEMP 98.5
== END 2016-08-14 16:10 | disposition home or self-care (01) ==
LOC: EC 14:09
DX: K08.89 Other specified disorders of teeth and supporting structures (principal); E11.9 Type 2 diabetes mellitus without complications; Z87.891 Personal history of nicotine dependence; Z79.4 Long term (current) use of insulin; Z88.0 Allergy status to penicillin; Z88.5 Allergy status to narcotic agent; Z88.8 Allergy status to other drugs, medicaments and biological substances; Z91.048 Other nonmedicinal substance allergy status
CPT/HCPCS: 99282

== ENCOUNTER 2016-08-18 17:14 | Emergency (ER) | payer OTHER ==
[2016-08-18] MEDS ORDERED: KETOROLAC 30 MG/ML 1 ML VIAL IVP STA (17:49)
[2016-08-18] MEDS ORDERED: RX INFO: IV CONTRAST WAS GIVEN 1 EACH MISC MISCELLANE PRN (17:49)
[2016-08-18] MEDS ORDERED: SODIUM CHLORIDE 0.9% 1,000 ML IV ONE (17:49)
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
[2016-08-18 18:40] LABS: Basophils % (A) 0 %; CH 29.3; CHCM 36.1; Eosinophils # (A) 0.1 k/uL (0-0.7); Eosinophils % (A) 1 %; HCT 43.9 % (34.0-46.0); HDW 3.02; HGB 15.3 gm/dL (11.4-16.0); Luc # (Auto) 0.27; Luc % (Auto) 3; Lymphocytes # (A) 2.6 k/uL (1.0-4.8); Lymphocytes % (A) 27 %; MCH 28.4 pg (25.0-35.0); MCV 81.2 fL (80.0-100.0); Mean Platelet Volume 7.3; Monocytes # (A) 0.3 k/uL (0-1.0); Monocytes % (A) 4 %; Neutrophils # (A) 6.2 k/uL (1.3-7.7); Neutrophils % (A) 65 %; RDW 12.8 % (11.5-15.5); WBC 9.5 k/uL (4.0-11.0); WBC (Perox) 9.35
[2016-08-18 18:46] LABS: Amorphous Sediment,Urine Rare /hpf; Appearance,Urine Clear (Clear); Bacteria,Urine Occasional /hpf; Bilirubin,Urine Negative (Negative); Glucose,Urine (UA) 4+ (Negative); Ketones,Urine 1+ (Negative); Leukocyte Esterase,Urine Trace (Negative); Nitrite,Urine Negative (Negative); PH, Urine 6.5 (5.0-8.0); Particle Count 1563; Protein,Urine Negative (Negative); RBC,Urine 2 /hpf (0-5); Squamous Epithelial Cell,Urine 6 /hpf (0-4); UA Billing (MACRO vs. MICRO) MICRO; Urobilinogen,Urine <2.0 mg/dL (<2.0); WBC,Urine 12 /hpf (0-5)
[2016-08-18 18:49] LABS: ALT 116 U/L (9-52); AST 57 U/L (14-36); Alkaline Phosphatase 166 U/L (38-126); Anion Gap 15 mmol/L; Blood Urea Nitrogen 9 mg/dL (7-17); Calcium 9.9 mg/dL (8.4-10.2); Carbon Dioxide 25 mmol/L (22-30); Chloride 99 mmol/L (98-107); Glucose 371 mg/dL (74-99); Non-African American GFR(MDRD) >60 (>60 ml/min/1.73 sqM); Potassium 4.2 mmol/L (3.5-5.1); Sodium 139 mmol/L (137-145); Total Bilirubin 1.9 mg/dL (0.2-1.3); Total Protein 8.6 g/dL (6.3-8.2)
--- NOTE | 2016-08-18 19:34 | CT ---
EXAMINATION TYPE: CT abdomen pelvis w con DATE OF EXAM: 08/18/2016 7:21 PM HISTORY: Pt states of abdominal and back pain. CT DLP: 1177.5mGycm Automated Exposure Control for Dose Reduction was Utilized. CONTRAST: CT scan of the abdomen and pelvis is performed without oral but with IV Contrast, patient injected wi th 100 mL of Omnipaque 300. COMPARISON: CT abdomen pelvis June 29, 2016 FINDINGS: LUNG BASES: No significant abnormality is appreciated. LIVER/GB: Liver is diffusely low dense consistent with fatty infiltration. Cholecystectomy clips are redemonstrated. PANCREAS: No significant abnormality is seen. SPLEEN: No significant abnormality is seen. ADRENALS: No significant abnormality is seen. KIDNEYS: No significant abnormality is seen. BOWEL: Normal-appearing appendix is seen from cecum. No suspicious bowel dilatation is present. UTERUS/ADNEXA: Uterus is anteverted in shape and normal in size. Both ovaries are identified and not suspiciously enlarged. LYMPH NODES: No greater than 1cm abdominal or pelvic lymph nodes are appreciated. There are prominent but subcentimeter retroperitoneal lymph nodes redemonstrated felt stable. OSSEOUS STRUCTURES: No significant abnormality is seen. OTHER: Metallic umbilical ornament is noted. IMPRESSION: No significant acute finding is seen to account for patient's clinical symptoms. No signi ficant change from prior.
[2016-08-18 19:59] VITALS: BP 140/90; PULSE 114; RESP 16; TEMP 97.8
== END 2016-08-18 19:55 | disposition home or self-care (01) ==
LOC: EC 17:14
DX: N39.0 Urinary tract infection, site not specified (principal); E11.65 Type 2 diabetes mellitus with hyperglycemia; F41.9 Anxiety disorder, unspecified; Z87.891 Personal history of nicotine dependence; E28.2 Polycystic ovarian syndrome; Z79.899 Other long term (current) drug therapy; Z79.4 Long term (current) use of insulin; Z96.41 Presence of insulin pump (external) (internal); Z88.0 Allergy status to penicillin; Z88.5 Allergy status to narcotic agent; Z88.8 Allergy status to other drugs, medicaments and biological substances
CPT/HCPCS: 99284; 96374; 36415; 80053; 85025; 81001; 81025; 74177; J1885; Q9967

== ENCOUNTER 2016-08-29 16:42 | Emergency (ER) | payer OTHER ==
[2016-08-29] MEDS ORDERED: ONDANSETRON 4 MG/2 ML VIAL IVP STA (17:55)
[2016-08-29] MEDS ORDERED: SODIUM CHLORIDE 0.9% 1,000 ML IV STA (17:55)
--- NOTE | 2016-08-29 17:58 | ED ---
General Adult HPI - General Chief complaint: Abdominal Pain Stated complaint: Abd Pain Time Seen by Provider: 08/29/16 17:48 Source: patient, RN notes reviewed Mode of arrival: ambulatory Limitations: no limitations - History of Present Illness Initial comments: Patient 21-year-old female significant past medical history for diabetes, who presents emergency room today with a chief complaint of symptoms of nausea vomiting times one day. Does admit that it began having some abdominal cramping yesterday. States 2 episodes vomiting today. States he was concerned because her blood sugar was elevated greater than 300 at home. She does admit that she's currently on insulin pump. Patient denies any other complaints or symptoms. Patient denies any recent fever, chills, shortness of breath, chest pain, back pain, numbness or tingling, dysuria or hematuria, constipation or diarrhea, headaches or visual changes, or any other complaints. - Related Data Home Medications Medication Instructions Recorded Confirmed ALPRAZolam [Xanax] 0.5 mg PO Q8H PRN 11/10/14 08/29/16 metFORMIN HCL 1,000 mg PO BID 09/19/15 08/29/16 Insulin Regular [HumuLIN R] See Protocol SQ-PUMP CONTINUOUS 04/22/16 08/29/16 Previous Rx's Medication Instructions Recorded Ibuprofen [Motrin] 600 mg PO Q6HR PRN #40 day 08/07/16 Naproxen 500 mg PO Q12HR PRN #10 tab 08/18/16 Ondansetron Odt [Zofran ODT] 4 mg PO Q8HR PRN #20 tab 08/29/16 Allergies Allergy/AdvReac Type Severity Reaction Status Date / Time amoxicillin [Amoxicillin] Allergy Severe Rash/Hives Verified 08/29/16 18:08 citalopram hydrobromide Allergy Severe Rash/Hives Verified 08/29/16 18:08 [From Celexa] adhesive Allergy Itching Verified 08/29/16 18:08 adhesive tape Allergy Itching Verified 08/29/16 18:08 pioglitazone HCl [From Actos] Allergy Rash/Hives Verified 08/29/16 18:08 codeine AdvReac Rash/Hives Verified 08/29/16 18:08 Review of Systems ROS Statement: Those systems with pertinent positive or pertinent negative responses have been documented in the HPI. ROS Other: All systems not noted in ROS Statement are negative. Past Medical History Past Medical History: Asthma, Diabetes Mellitus Additional Past Medical History / Comment(s): polycystic ovaries, TACHYCARDia History of Any Multi-Drug Resistant Organisms: None Reported Past Surgical History: Adenoidectomy, Cholecystectomy, Tonsillectomy Additional Past Surgical History / Comment(s): CYST REMOVAL FROM SINUS CAVITY, NOSE RECONSTRUCTION Past Anesthesia/Blood Transfusion Reactions: No Reported Reaction Past Psychological History: Anxiety, Depression Smoking Status: Former smoker Past Alcohol Use History: None Reported Past Drug Use History: Marijuana Additional Drug Use History / Comment(s): PT STATES SMOKES MARIJUANA OCASSIONALY - Past Family History Mother Family Medical History: Thyroid Disorder Additional Family Medical History / Comment(s): GESTATIONAL DIABETIC, BRAIN BLEED, DEPRESSION, ANXIETY Sister(s) Family Medical History: Thyroid Disorder Additional Family Medical History / Comment(s): DEPRESSION, ANXIETY General Exam - General Exam Comments Initial Comments: General: The patient is awake and alert, in no distress, and does not appear acutely ill. Eye: Pupils are equal, round and reactive to light, extra-ocular movements are intact. No nystagmus. There is normal conjunctiva bilaterally. No signs of icterus. Ears, nose, mouth and throat: There are moist mucous membranes and no oral lesions. Neck: The neck is supple, there is no tenderness or JVD. Cardiovascular: There is a regular rate and rhythm. No murmur, rub or gallop is appreciated. Respiratory: Lungs are clear to auscultation, respirations are non-labored, breath sounds are equal. No wheezes, stridor, rales, or rhonchi. Gastrointestinal: Soft, non-distended, non-tender abdomen without masses or organomegaly noted. There is no rebound or guarding present. No CVA tenderness. Bowel sounds are unremarkable. Musculoskeletal: Normal ROM, no tenderness. Strength 5/5. Sensation intact. Pulses equal bilaterally 2+. Neurological: A&O x 3. CN II-XII intact, There are no obvious motor or sensory deficits. Coordination appears grossly intact. Speech is normal. Skin: Skin is warm and dry and no rashes or lesions are noted. Psychiatric: Cooperative, appropriate mood & affect, normal judgment. Limitations: no limitations Course Vital Signs 08/29/16 08/29/16 16:54 18:09 Temperature 98.2 F 97.9 F Pulse Rate 117 H 111 H Respiratory 18 15 Rate Blood Pressure 136/94 137/83 O2 Sat by Pulse 97 98 Oximetry Medical Decision Making - Medical Decision Making Patient reexamined at this time shows no signs of distress. Patient's resting comfortable in a stretcher. Feeling much better after IV fluids. Patient labs reviewed does show mild elevation of AST/ALT. Bilirubin 1.8. Patient is postcholecystectomy aware of elevated liver enzymes that she's been worked up in the past with liver biopsies as well. Patient is advised follow-up the family doctor. Acetone negative. Patient feeling better. Abdomen is soft nontender. Patient will be discharged home with nausea medication advised return to emergency room if any symptoms increase or worsen or for new concerns. - Lab Data Result diagrams: 08/29/16 18:00 08/29/16 18:00 Lab Results 08/29/16 08/29/16 08/29/16 Range/Units 18:00 18:00 18:00 WBC 10.4 (3.8-10.6) k/uL RBC 5.43 H (3.80-5.40) m/uL Hgb 15.6 (11.4-16.0) gm/dL Hct 44.1 (34.0-46.0) % MCV 81.3 (80.0-100.0) fL MCH 28.8 (25.0-35.0) pg MCHC 35.4 (31.0-37.0) g/dL RDW 13.1 (11.5-15.5) % Plt Count 342 (150-450) k/uL Neutrophils % 70 % Lymphocytes % 22 % Monocytes % 5 % Eosinophils % 1 % Basophils % 0 % Neutrophils # 7.3 (1.3-7.7) k/uL Lymphocytes # 2.3 (1.0-4.8) k/uL Monocytes # 0.5 (0-1.0) k/uL Eosinophils # 0.1 (0-0.7) k/uL Basophils # 0.0 (0-0.2) k/uL Sodium 139 (137-145) mmol/L Potassium 4.0 (3.5-5.1) mmol/L Chloride 101 (98-107) mmol/L Carbon Dioxide 26 (22-30) mmol/L Anion Gap 12 mmol/L BUN 11 (7-17) mg/dL Creatinine 0.55 (0.52-1.04) mg/dL Est GFR (MDRD) Af Amer >60 (>60 ml/min/1.73 sqM) Est GFR (MDRD) Non-Af >60 (>60 ml/min/1.73 sqM) Glucose 250 H (74-99) mg/dL Calcium 9.7 (8.4-10.2) mg/dL Total Bilirubin 1.8 H (0.2-1.3) mg/dL AST 83 H (14-36) U/L ALT 121 H (9-52) U/L Alkaline Phosphatase 117 (38-126) U/L Total Protein 7.9 (6.3-8.2) g/dL Albumin 4.5 (3.5-5.0) g/dL Urine Color Urine Appearance (Clear) Urine pH (5.0-8.0) Ur Specific [place] (1.001-1.035) Urine Protein (Negative) Urine Glucose (UA) (Negative) Urine Ketones (Negative) Urine Blood (Negative) Urine Nitrite (Negative) Urine Bilirubin (Negative) Urine Urobilinogen (<2.0) mg/dL Ur Leukocyte Esterase (Negative) Urine RBC (0-5) /hpf Urine WBC (0-5) /hpf Ur Squamous Epith Cells (0-4) /hpf Urine Bacteria (None) /hpf Urine Mucus (None) /hpf Urine HCG, Qual Not Detected (Not Detectd) Acetone, Qual Negative (Negative) 08/29/16 Range/Units 18:00 WBC (3.8-10.6) k/uL RBC (3.80-5.40) m/uL Hgb (11.4-16.0) gm/dL Hct (34.0-46.0) % MCV (80.0-100.0) fL MCH (25.0-35.0) pg MCHC (31.0-37.0) g/dL RDW (11.5-15.5) % Plt Count (150-450) k/uL Neutrophils % % Lymphocytes % % Monocytes % % Eosinophils % % Basophils % % Neutrophils # (1.3-7.7) k/uL Lymphocytes # (1.0-4.8) k/uL Monocytes # (0-1.0) k/uL Eosinophils # (0-0.7) k/uL Basophils # (0-0.2) k/uL Sodium (137-145) mmol/L Potassium (3.5-5.1) mmol/L Chloride (98-107) mmol/L Carbon Dioxide (22-30) mmol/L Anion Gap mmol/L BUN (7-17) mg/dL Creatinine (0.52-1.04) mg/dL Est GFR (MDRD) Af Amer (>60 ml/min/1.73 sqM) Est GFR (MDRD) Non-Af (>60 ml/min/1.73 sqM) Glucose (74-99) mg/dL Calcium (8.4-10.2) mg/dL Total Bilirubin (0.2-1.3) mg/dL AST (14-36) U/L ALT (9-52) U/L Alkaline Phosphatase (38-126) U/L Total Protein (6.3-8.2) g/dL Albumin (3.5-5.0) g/dL Urine Color Yellow Urine Appearance Clear (Clear) Urine pH 6.5 (5.0-8.0) Ur Specific [place] 1.033 (1.001-1.035) Urine Protein 1+ H (Negative) Urine Glucose (UA) 4+ H (Negative) Urine Ketones Negative (Negative) Urine Blood Negative (Negative) Urine Nitrite Negative (Negative) Urine Bilirubin Negative (Negative) Urine Urobilinogen <2.0 (<2.0) mg/dL Ur Leukocyte Esterase Negative (Negative) Urine RBC 1 (0-5) /hpf Urine WBC 2 (0-5) /hpf Ur Squamous Epith Cells 1 (0-4) /hpf Urine Bacteria Occasional H (None) /hpf Urine Mucus Rare H (None) /hpf Urine HCG, Qual (Not Detectd) Acetone, Qual (Negative) Disposition Clinical Impression: Nausea & vomiting Disposition: HOME SELF-CARE Condition: Good Instructions: Acute Nausea and Vomiting (ED) Additional Instructions: Please use medication as discussed. Please follow-up with family doctor in the next 2 days of symptoms have not improved. Please return to emergency room if the symptoms increase or worsen or for any other concerns. Prescriptions: Ondansetron Odt [Zofran ODT] 4 mg PO Q8HR PRN #20 tab PRN Reason: Nausea Time of Disposition: 19:10
[2016-08-29 18:11] VITALS: TEMP 97.9
[2016-08-29 18:32] LABS: Basophils % (A) 0 %; CHCM 35.8; Eosinophils # (A) 0.1 k/uL (0-0.7); Eosinophils % (A) 1 %; HCT 44.1 % (34.0-46.0); HDW 3.05; HGB 15.6 gm/dL (11.4-16.0); Luc # (Auto) 0.23; Luc % (Auto) 2; Lymphocytes # (A) 2.3 k/uL (1.0-4.8); Lymphocytes % (A) 22 %; MCH 28.8 pg (25.0-35.0); MCHC 35.4 g/dL (31.0-37.0); MCV 81.3 fL (80.0-100.0); Mean Platelet Volume 7.2; Monocytes # (A) 0.5 k/uL (0-1.0); Monocytes % (A) 5 %; Neutrophils # (A) 7.3 k/uL (1.3-7.7); Neutrophils % (A) 70 %; RBC 5.43 m/uL (3.80-5.40); RDW 13.1 % (11.5-15.5); WBC 10.4 k/uL (3.8-10.6); WBC (Perox) 10.36
[2016-08-29 18:34] LABS: Appearance,Urine Clear (Clear); Bacteria,Urine Occasional /hpf; Bilirubin,Urine Negative (Negative); Glucose,Urine (UA) 4+ (Negative); Ketones,Urine Negative (Negative); Leukocyte Esterase,Urine Negative (Negative); Mucus,Urine Rare /hpf; Nitrite,Urine Negative (Negative); PH, Urine 6.5 (5.0-8.0); Particle Count 2810; Protein,Urine 1+ (Negative); RBC,Urine 1 /hpf (0-5); Specific Gravity,Urine 1.033 (1.001-1.035); Squamous Epithelial Cell,Urine 1 /hpf (0-4); UA Billing (MACRO vs. MICRO) MICRO; Urobilinogen,Urine <2.0 mg/dL (<2.0); WBC,Urine 2 /hpf (0-5)
[2016-08-29 18:51] LABS: ALT 121 U/L (9-52); AST 83 U/L (14-36); Alkaline Phosphatase 117 U/L (38-126); Anion Gap 12 mmol/L; Blood Urea Nitrogen 11 mg/dL (7-17); Calcium 9.7 mg/dL (8.4-10.2); Carbon Dioxide 26 mmol/L (22-30); Chloride 101 mmol/L (98-107); Glucose 250 mg/dL (74-99); Non-African American GFR(MDRD) >60 (>60 ml/min/1.73 sqM); Sodium 139 mmol/L (137-145); Total Bilirubin 1.8 mg/dL (0.2-1.3); Total Protein 7.9 g/dL (6.3-8.2)
[2016-08-29 19:31] VITALS: BP 133/65; PULSE 100; RESP 16
== END 2016-08-29 19:31 | disposition home or self-care (01) ==
LOC: EC 16:42
DX: R11.2 Nausea with vomiting, unspecified (principal); R10.9 Unspecified abdominal pain; R74.8 Abnormal levels of other serum enzymes; E28.2 Polycystic ovarian syndrome; E11.9 Type 2 diabetes mellitus without complications; Z96.41 Presence of insulin pump (external) (internal); Z79.84 Long term (current) use of oral hypoglycemic drugs; Z88.0 Allergy status to penicillin; Z88.8 Allergy status to other drugs, medicaments and biological substances; Z87.891 Personal history of nicotine dependence
CPT/HCPCS: 36415; 80053; 82009; 85025; 81001; 81025; 99284; 96374; 96361; J2405

== ENCOUNTER 2016-10-16 12:16 | Emergency (ER) | payer OTHER ==
[2016-10-16] MEDS ORDERED: SODIUM CHLORIDE 0.9% 1,000 ML IV STA (14:22)
[2016-10-16] MEDS ORDERED: KETOROLAC 30 MG/ML 1 ML VIAL IVP STA (14:22)
--- NOTE | 2016-10-16 14:23 | ED ---
General Adult HPI - General Chief complaint: Abdominal Pain Stated complaint: Right Side Pain Time Seen by Provider: 10/16/16 14:13 Source: patient, RN notes reviewed Mode of arrival: ambulatory Limitations: no limitations - History of Present Illness Initial comments: Patient 21-year-old female who presents emergency room today with a chief complaint of right upper quadrant pain 2 days. Patient describes it as sharp pain it's worse with certain movements. Patient does admit to cholecystectomy approximately 6 months ago. Patient admits that pain is worse with movements and has been sharp. Has been using Tylenol/ibuprofen with little relief. States she took Tylenol as morning with no relief taking any other medications. Patient denies any recent travel. She denies any leg swelling. She denies any use of control. Patient denies any recent fever, chills, shortness of breath, chest pain, back pain, numbness or tingling, dysuria or hematuria, constipation or diarrhea, headaches or visual changes, or any other complaints. - Related Data Home Medications Medication Instructions Recorded Confirmed ALPRAZolam [Xanax] 0.5 mg PO Q8H PRN 11/10/14 10/15/16 metFORMIN HCL 1,000 mg PO BID 09/19/15 10/15/16 Insulin Regular [HumuLIN R] See Protocol SQ-PUMP CONTINUOUS 04/22/16 10/15/16 Previous Rx's Medication Instructions Recorded Ondansetron Odt [Zofran ODT] 4 mg PO Q8HR PRN #20 tab 08/29/16 Ondansetron Odt [Zofran ODT] 4 mg PO Q8HR PRN #20 tab 10/16/16 Allergies Allergy/AdvReac Type Severity Reaction Status Date / Time amoxicillin [Amoxicillin] Allergy Severe Rash/Hives Verified 10/16/16 12:34 citalopram hydrobromide Allergy Severe Rash/Hives Verified 10/16/16 12:34 [From Celexa] adhesive Allergy Itching Verified 10/16/16 12:34 adhesive tape Allergy Itching Verified 10/16/16 12:34 pioglitazone HCl [From Actos] Allergy Rash/Hives Verified 10/16/16 12:34 codeine AdvReac Rash/Hives Verified 10/16/16 12:34 Review of Systems ROS Statement: Those systems with pertinent positive or pertinent negative responses have been documented in the HPI. ROS Other: All systems not noted in ROS Statement are negative. Past Medical History Past Medical History: Asthma, Diabetes Mellitus Additional Past Medical History / Comment(s): polycystic ovaries, TACHYCARDia History of Any Multi-Drug Resistant Organisms: None Reported Past Surgical History: Adenoidectomy, Cholecystectomy, Tonsillectomy Additional Past Surgical History / Comment(s): CYST REMOVAL FROM SINUS CAVITY, NOSE RECONSTRUCTION Past Anesthesia/Blood Transfusion Reactions: No Reported Reaction Past Psychological History: Anxiety, Depression Smoking Status: Former smoker Past Alcohol Use History: Occasional Past Drug Use History: Marijuana Additional Drug Use History / Comment(s): PT STATES SMOKES MARIJUANA OCASSIONALY - Past Family History Mother Family Medical History: Thyroid Disorder Additional Family Medical History / Comment(s): GESTATIONAL DIABETIC, BRAIN BLEED, DEPRESSION, ANXIETY Sister(s) Family Medical History: Thyroid Disorder Additional Family Medical History / Comment(s): DEPRESSION, ANXIETY General Exam - General Exam Comments Initial Comments: General: The patient is awake and alert, in no distress, and does not appear acutely ill. Eye: Pupils are equal, round and reactive to light, extra-ocular movements are intact. No nystagmus. There is normal conjunctiva bilaterally. No signs of icterus. Ears, nose, mouth and throat: There are moist mucous membranes and no oral lesions. Neck: The neck is supple, there is no tenderness or JVD. Cardiovascular: There is a regular rate and rhythm. No murmur, rub or gallop is appreciated. Respiratory: Lungs are clear to auscultation, respirations are non-labored, breath sounds are equal. No wheezes, stridor, rales, or rhonchi. Gastrointestinal: Normal appearance abdomen. Normal bowel sounds. Soft on palpation. Patient does have mild tenderness right upper quadrant and epigastric. No rebound tenderness. Guarding. No CVA tenderness. Musculoskeletal: Normal ROM, no tenderness. Strength 5/5. Sensation intact. Pulses equal bilaterally 2+. Neurological: A&O x 3. CN II-XII intact, There are no obvious motor or sensory deficits. Coordination appears grossly intact. Speech is normal. Skin: Skin is warm and dry and no rashes or lesions are noted. Psychiatric: Cooperative, appropriate mood & affect, normal judgment. Limitations: no limitations Course Vital Signs 10/16/16 12:32 Temperature 99.0 F Pulse Rate 101 H Respiratory 20 Rate Blood Pressure 123/87 O2 Sat by Pulse 99 Oximetry Medical Decision Making - Medical Decision Making Patient reexamined at this time shows no signs of distress. Sitting up comfortably in bed. Patient labs been reviewed no elevated white count. Patient's sugar mildly elevated 339. Patient does take insulin. Patient liver enzymes mildly elevated. Does have a history. States that looking into this in the past and was told she had a fatty liver. - Lab Data Result diagrams: 10/16/16 14:40 10/16/16 14:40 Lab Results 10/16/16 10/16/16 10/16/16 Range/Units 14:40 14:40 14:40 WBC 8.0 (3.8-10.6) k/uL RBC 5.44 H (3.80-5.40) m/uL Hgb 15.6 (11.4-16.0) gm/dL Hct 43.4 (34.0-46.0) % MCV 79.7 L (80.0-100.0) fL MCH 28.6 (25.0-35.0) pg MCHC 35.9 (31.0-37.0) g/dL RDW 13.0 (11.5-15.5) % Plt Count 267 (150-450) k/uL Neutrophils % 65 % Lymphocytes % 25 % Monocytes % 6 % Eosinophils % 2 % Basophils % 1 % Neutrophils # 5.2 (1.3-7.7) k/uL Lymphocytes # 2.0 (1.0-4.8) k/uL Monocytes # 0.5 (0-1.0) k/uL Eosinophils # 0.1 (0-0.7) k/uL Basophils # 0.0 (0-0.2) k/uL Hyperchromasia Slight Sodium 137 (137-145) mmol/L Potassium 4.5 (3.5-5.1) mmol/L Chloride 103 (98-107) mmol/L Carbon Dioxide 21 L (22-30) mmol/L Anion Gap 13 mmol/L BUN 10 (7-17) mg/dL Creatinine 0.60 (0.52-1.04) mg/dL Est GFR (MDRD) Af Amer >60 (>60 ml/min/1.73 sqM) Est GFR (MDRD) Non-Af >60 (>60 ml/min/1.73 sqM) Glucose 339 H (74-99) mg/dL Calcium 9.6 (8.4-10.2) mg/dL Total Bilirubin 2.2 H (0.2-1.3) mg/dL AST 76 H (14-36) U/L ALT 108 H (9-52) U/L Alkaline Phosphatase 97 (38-126) U/L Total Protein 7.5 (6.3-8.2) g/dL Albumin 4.5 (3.5-5.0) g/dL Amylase 57 (30-110) U/L Lipase 75 (23-300) U/L Urine Color Urine Appearance (Clear) Urine pH (5.0-8.0) Ur Specific [place] (1.001-1.035) Urine Protein (Negative) Urine Glucose (UA) (Negative) Urine Ketones (Negative) Urine Blood (Negative) Urine Nitrite (Negative) Urine Bilirubin (Negative) Urine Urobilinogen (<2.0) mg/dL Ur Leukocyte Esterase (Negative) Urine HCG, Qual Not Detected (Not Detectd) 10/16/16 Range/Units 14:40 WBC (3.8-10.6) k/uL RBC (3.80-5.40) m/uL Hgb (11.4-16.0) gm/dL Hct (34.0-46.0) % MCV (80.0-100.0) fL MCH (25.0-35.0) pg MCHC (31.0-37.0) g/dL RDW (11.5-15.5) % Plt Count (150-450) k/uL Neutrophils % % Lymphocytes % % Monocytes % % Eosinophils % % Basophils % % Neutrophils # (1.3-7.7) k/uL Lymphocytes # (1.0-4.8) k/uL Monocytes # (0-1.0) k/uL Eosinophils # (0-0.7) k/uL Basophils # (0-0.2) k/uL Hyperchromasia Sodium (137-145) mmol/L Potassium (3.5-5.1) mmol/L Chloride (98-107) mmol/L Carbon Dioxide (22-30) mmol/L Anion Gap mmol/L BUN (7-17) mg/dL Creatinine (0.52-1.04) mg/dL Est GFR (MDRD) Af Amer (>60 ml/min/1.73 sqM) Est GFR (MDRD) Non-Af (>60 ml/min/1.73 sqM) Glucose (74-99) mg/dL Calcium (8.4-10.2) mg/dL Total Bilirubin (0.2-1.3) mg/dL AST (14-36) U/L ALT (9-52) U/L Alkaline Phosphatase (38-126) U/L Total Protein (6.3-8.2) g/dL Albumin (3.5-5.0) g/dL Amylase (30-110) U/L Lipase (23-300) U/L Urine Color Yellow Urine Appearance Clear (Clear) Urine pH 5.5 (5.0-8.0) Ur Specific [place] 1.035 (1.001-1.035) Urine Protein Trace H (Negative) Urine Glucose (UA) 4+ H (Negative) Urine Ketones 3+ H (Negative) Urine Blood Negative (Negative) Urine Nitrite Negative (Negative) Urine Bilirubin Negative (Negative) Urine Urobilinogen <2.0 (<2.0) mg/dL Ur Leukocyte Esterase Negative (Negative) Urine HCG, Qual (Not Detectd) Disposition Clinical Impression: Abdominal pain Disposition: HOME SELF-CARE Condition: Good Instructions: Abdominal Pain (ED) Additional Instructions: Please use medication as discussed. Please follow-up with family doctor in the next 2 days of symptoms have not improved. Please return to emergency room if the symptoms increase or worsen or for any other concerns. Prescriptions: Ondansetron Odt [Zofran ODT] 4 mg PO Q8HR PRN #20 tab PRN Reason: Nausea Referrals: Gemma Jacob MD [Primary Care Provider] - 1-2 days Shakira Wilson MD [STAFF PHYSICIAN] - 1-2 days Time of Disposition: 15:38
[2016-10-16 15:09] LABS: Appearance,Urine Clear (Clear); Bilirubin,Urine Negative (Negative); Glucose,Urine (UA) 4+ (Negative); Leukocyte Esterase,Urine Negative (Negative); Nitrite,Urine Negative (Negative); PH, Urine 5.5 (5.0-8.0); Protein,Urine Trace (Negative); Specific Gravity,Urine 1.035 (1.001-1.035); UA Billing (MACRO vs. MICRO) CHEM; Urobilinogen,Urine <2.0 mg/dL (<2.0)
[2016-10-16 15:16] LABS: ALT 108 U/L (9-52); AST 76 U/L (14-36); Alkaline Phosphatase 97 U/L (38-126); Amylase 57 U/L (30-110); Anion Gap 13 mmol/L; Blood Urea Nitrogen 10 mg/dL (7-17); Calcium 9.6 mg/dL (8.4-10.2); Carbon Dioxide 21 mmol/L (22-30); Chloride 103 mmol/L (98-107); Glucose 339 mg/dL (74-99); Non-African American GFR(MDRD) >60 (>60 ml/min/1.73 sqM); Potassium 4.5 mmol/L (3.5-5.1); Sodium 137 mmol/L (137-145); Total Bilirubin 2.2 mg/dL (0.2-1.3); Total Protein 7.5 g/dL (6.3-8.2)
[2016-10-16 15:20] LABS: Basophils % (A) 1 %; CH 29.3; Eosinophils # (A) 0.1 k/uL (0-0.7); Eosinophils % (A) 2 %; HCT 43.4 % (34.0-46.0); HDW 3.17; HGB 15.6 gm/dL (11.4-16.0); Hyperchromasia Slight; Luc # (Auto) 0.15; Luc % (Auto) 2; Lymphocytes % (A) 25 %; MCH 28.6 pg (25.0-35.0); MCHC 35.9 g/dL (31.0-37.0); MCV 79.7 fL (80.0-100.0); Mean Platelet Volume 7.5; Monocytes # (A) 0.5 k/uL (0-1.0); Monocytes % (A) 6 %; Neutrophils # (A) 5.2 k/uL (1.3-7.7); Neutrophils % (A) 65 %; RBC 5.44 m/uL (3.80-5.40); WBC (Perox) 7.48
[2016-10-16 15:27] LABS: Ketones,Urine 3+ (Negative)
[2016-10-16 15:59] VITALS: BP 136/82; PULSE 96; RESP 16; TEMP 97.7
== END 2016-10-16 16:00 | disposition home or self-care (01) ==
LOC: EC 12:16
DX: R10.11 Right upper quadrant pain (principal); R10.13 Epigastric pain; E11.9 Type 2 diabetes mellitus without complications; Z88.0 Allergy status to penicillin; Z91.048 Other nonmedicinal substance allergy status; Z88.5 Allergy status to narcotic agent; Z88.8 Allergy status to other drugs, medicaments and biological substances; Z87.891 Personal history of nicotine dependence; Z90.49 Acquired absence of other specified parts of digestive tract; Z79.84 Long term (current) use of oral hypoglycemic drugs; Z79.4 Long term (current) use of insulin
CPT/HCPCS: 99284; 96374; 96361; 36415; 80053; 82150; 83690; 85025; 81003; 81025; J1885

== ENCOUNTER 2016-10-20 12:57 | Inpatient (IN) | payer OTHER ==
[2016-10-20] MEDS ORDERED: INSULIN REGULAR 100 UNIT/ML VIAL IV ONE (13:51)
[2016-10-20] MEDS ORDERED: SODIUM CHLORIDE 0.9% 1,000 ML IV STA (13:52)
[2016-10-20] MEDS ORDERED: ONDANSETRON 4 MG/2 ML VIAL IVP STA (13:52)
[2016-10-20] MEDS ORDERED: LORazepam 2 MG/ML SYRINGE IV STA (13:53)
--- NOTE | 2016-10-20 13:55 | ED ---
General Adult HPI - General Chief complaint: Dizziness Stated complaint: Hyperglycemia Time Seen by Provider: 10/20/16 13:46 Source: patient, RN notes reviewed Mode of arrival: wheelchair Limitations: no limitations - History of Present Illness Initial comments: Patient is a pleasant 21-year-old female presenting to the emergency department with concerns regarding her blood sugar levels. Patient states her insulin pump stopped working 4 days ago. Patient has been using short acting insulin on her own. Blood sugar has been running around 400 the past couple of days. Patient does feel somewhat dizzy. Patient has polyuria and polydipsia. Patient has mild sinus congestion. Patient also complains of anxiety and requests medication for this. - Related Data Home Medications Medication Instructions Recorded Confirmed ALPRAZolam [Xanax] 0.5 mg PO Q8H PRN 11/10/14 10/20/16 metFORMIN HCL 1,000 mg PO BID 09/19/15 10/20/16 Insulin Regular [HumuLIN R] See Protocol SQ-PUMP CONTINUOUS 04/22/16 10/20/16 Insulin Regular, Human [humulin R See Protocol SQ ACHS 10/20/16 10/20/16 U-500 Kwikpen] Previous Rx's Medication Instructions Recorded Ondansetron Odt [Zofran ODT] 4 mg PO Q8HR PRN #20 tab 08/29/16 Allergies Allergy/AdvReac Type Severity Reaction Status Date / Time amoxicillin [Amoxicillin] Allergy Severe Rash/Hives Verified 10/20/16 14:03 citalopram hydrobromide Allergy Severe Rash/Hives Verified 10/20/16 14:03 [From Celexa] adhesive Allergy Itching Verified 10/20/16 14:03 adhesive tape Allergy Itching Verified 10/20/16 14:03 pioglitazone HCl [From Actos] Allergy Rash/Hives Verified 10/20/16 14:03 codeine AdvReac Rash/Hives Verified 10/20/16 14:03 Review of Systems ROS Statement: Those systems with pertinent positive or pertinent negative responses have been documented in the HPI. ROS Other: All systems not noted in ROS Statement are negative. Constitutional: Denies: fever Eyes: Denies: eye pain ENT: Denies: ear pain Respiratory: Denies: cough Cardiovascular: Denies: chest pain Endocrine: Reports: fatigue Gastrointestinal: Reports: nausea. Denies: abdominal pain Genitourinary: Reports: frequency. Denies: dysuria Musculoskeletal: Denies: back pain Skin: Denies: rash Neurological: Denies: headache Past Medical History Past Medical History: Asthma, Diabetes Mellitus Additional Past Medical History / Comment(s): polycystic ovaries, TACHYCARDia History of Any Multi-Drug Resistant Organisms: None Reported Past Surgical History: Adenoidectomy, Cholecystectomy, Tonsillectomy Additional Past Surgical History / Comment(s): CYST REMOVAL FROM SINUS CAVITY, NOSE RECONSTRUCTION Past Anesthesia/Blood Transfusion Reactions: No Reported Reaction Past Psychological History: Anxiety, Depression Smoking Status: Former smoker Past Alcohol Use History: Occasional Past Drug Use History: None Reported Additional Drug Use History / Comment(s): PT STATES SMOKES MARIJUANA OCASSIONALY - Past Family History Mother Family Medical History: Thyroid Disorder Additional Family Medical History / Comment(s): GESTATIONAL DIABETIC, BRAIN BLEED, DEPRESSION, ANXIETY Sister(s) Family Medical History: Thyroid Disorder Additional Family Medical History / Comment(s): DEPRESSION, ANXIETY General Exam Limitations: no limitations General appearance: alert, in no apparent distress Head exam: Present: atraumatic Eye exam: Present: normal appearance, PERRL ENT exam: Present: normal oropharynx Neck exam: Present: normal inspection Respiratory exam: Present: normal lung sounds bilaterally Cardiovascular Exam: Present: tachycardia GI/Abdominal exam: Present: soft. Absent: distended, tenderness Extremities exam: Present: normal inspection Neurological exam: Present: alert Psychiatric exam: Present: normal affect, normal mood Skin exam: Present: normal color Course Vital Signs 10/20/16 10/20/16 13:13 14:37 Temperature 99.7 F H 98.3 F Pulse Rate 127 H 124 H Respiratory 16 16 Rate Blood Pressure 155/83 146/79 O2 Sat by Pulse 99 93 L Oximetry Medical Decision Making - Medical Decision Making Patient reevaluated and resting comfortably in bed. Patient does admit to having chronic elevated liver enzymes. Patient states this has been evaluated in the past with no reasonable given. Patient has had hepatitis testing. Patient was updated on results and plan. Case was discussed in detail with Dr. Lezama, who will admit for Dr. Aguilar. - Lab Data Result diagrams: 10/20/16 13:30 10/20/16 13:30 Lab Results 10/20/16 10/20/16 10/20/16 Range/Units 13:30 13:30 13:38 WBC 8.4 (3.8-10.6) k/uL RBC 5.68 H (3.80-5.40) m/uL Hgb 16.3 H (11.4-16.0) gm/dL Hct 47.0 H (34.0-46.0) % MCV 82.7 (80.0-100.0) fL MCH 28.7 (25.0-35.0) pg MCHC 34.8 (31.0-37.0) g/dL RDW 13.1 (11.5-15.5) % Plt Count 298 (150-450) k/uL Neutrophils % 74 % Lymphocytes % 19 % Monocytes % 4 % Eosinophils % 1 % Basophils % 1 % Neutrophils # 6.2 (1.3-7.7) k/uL Lymphocytes # 1.6 (1.0-4.8) k/uL Monocytes # 0.3 (0-1.0) k/uL Eosinophils # 0.1 (0-0.7) k/uL Basophils # 0.0 (0-0.2) k/uL Sodium 135 L (137-145) mmol/L Potassium 5.5 H (3.5-5.1) mmol/L Chloride 101 (98-107) mmol/L Carbon Dioxide 18 L (22-30) mmol/L Anion Gap 16 mmol/L BUN 11 (7-17) mg/dL Creatinine 0.45 L (0.52-1.04) mg/dL Est GFR (MDRD) Af Amer >60 (>60 ml/min/1.73 sqM) Est GFR (MDRD) Non-Af >60 (>60 ml/min/1.73 sqM) Glucose 441 H (74-99) mg/dL POC Glucose (mg/dL) (75-99) mg/dL POC Glu Virtual Classroom Manager ID Calcium 9.7 (8.4-10.2) mg/dL Phosphorus 4.3 (2.5-4.5) mg/dL Magnesium 1.6 (1.6-2.3) mg/dL Total Bilirubin 1.9 H (0.2-1.3) mg/dL AST 62 H (14-36) U/L ALT 104 H (9-52) U/L Alkaline Phosphatase 200 H (38-126) U/L Total Protein 8.1 (6.3-8.2) g/dL Albumin 4.9 (3.5-5.0) g/dL Urine Color Light Yellow Urine Appearance Cloudy H (Clear) Urine pH 5.0 (5.0-8.0) Ur Specific [place] 1.030 (1.001-1.035) Urine Protein Negative (Negative) Urine Glucose (UA) 4+ H (Negative) Urine Ketones 3+ H (Negative) Urine Blood Negative (Negative) Urine Nitrite Negative (Negative) Urine Bilirubin Negative (Negative) Urine Urobilinogen <2.0 (<2.0) mg/dL Ur Leukocyte Esterase Negative (Negative) Urine RBC 1 (0-5) /hpf Urine WBC 3 (0-5) /hpf Ur Squamous Epith Cells 10 H (0-4) /hpf Acetone, Qual Positive (Negative) 10/20/16 Range/Units 13:40 WBC (3.8-10.6) k/uL RBC (3.80-5.40) m/uL Hgb (11.4-16.0) gm/dL Hct (34.0-46.0) % MCV (80.0-100.0) fL MCH (25.0-35.0) pg MCHC (31.0-37.0) g/dL RDW (11.5-15.5) % Plt Count (150-450) k/uL Neutrophils % % Lymphocytes % % Monocytes % % Eosinophils % % Basophils % % Neutrophils # (1.3-7.7) k/uL Lymphocytes # (1.0-4.8) k/uL Monocytes # (0-1.0) k/uL Eosinophils # (0-0.7) k/uL Basophils # (0-0.2) k/uL Sodium (137-145) mmol/L Potassium (3.5-5.1) mmol/L Chloride (98-107) mmol/L Carbon Dioxide (22-30) mmol/L Anion Gap mmol/L BUN (7-17) mg/dL Creatinine (0.52-1.04) mg/dL Est GFR (MDRD) Af Amer (>60 ml/min/1.73 sqM) Est GFR (MDRD) Non-Af (>60 ml/min/1.73 sqM) Glucose (74-99) mg/dL POC Glucose (mg/dL) 425 H (75-99) mg/dL POC Glu Virtual Classroom Manager ID Nava Ferraro Calcium (8.4-10.2) mg/dL Phosphorus (2.5-4.5) mg/dL Magnesium (1.6-2.3) mg/dL Total Bilirubin (0.2-1.3) mg/dL AST (14-36) U/L ALT (9-52) U/L Alkaline Phosphatase (38-126) U/L Total Protein (6.3-8.2) g/dL Albumin (3.5-5.0) g/dL Urine Color Urine Appearance (Clear) Urine pH (5.0-8.0) Ur Specific [place] (1.001-1.035) Urine Protein (Negative) Urine Glucose (UA) (Negative) Urine Ketones (Negative) Urine Blood (Negative) Urine Nitrite (Negative) Urine Bilirubin (Negative) Urine Urobilinogen (<2.0) mg/dL Ur Leukocyte Esterase (Negative) Urine RBC (0-5) /hpf Urine WBC (0-5) /hpf Ur Squamous Epith Cells (0-4) /hpf Acetone, Qual (Negative) - Radiology Data Interpreted by me: Chest x-ray interpreted by myself shows acute process. Critical Care Time Critical Care Time: Yes Total Critical Care Time: 32 Disposition Clinical Impression: Diabetic ketoacidosis Disposition: ADMITTED IP TO THIS [facility] Condition: Serious Referrals: Gemma Jacob MD [Primary Care Provider] - 1-2 days Time of Disposition: 15:41
[2016-10-20 14:09] LABS: Basophils % (A) 1 %; CH 29.6; Eosinophils # (A) 0.1 k/uL (0-0.7); Eosinophils % (A) 1 %; HDW 3.02; HGB 16.3 gm/dL (11.4-16.0); Luc # (Auto) 0.16; Luc % (Auto) 2; Lymphocytes # (A) 1.6 k/uL (1.0-4.8); Lymphocytes % (A) 19 %; MCH 28.7 pg (25.0-35.0); MCHC 34.8 g/dL (31.0-37.0); MCV 82.7 fL (80.0-100.0); Mean Platelet Volume 7.3; Monocytes # (A) 0.3 k/uL (0-1.0); Monocytes % (A) 4 %; Neutrophils # (A) 6.2 k/uL (1.3-7.7); Neutrophils % (A) 74 %; RBC 5.68 m/uL (3.80-5.40); RDW 13.1 % (11.5-15.5); WBC 8.4 k/uL (3.8-10.6); WBC (Perox) 8.07
[2016-10-20 14:12] LABS: Appearance,Urine Cloudy (Clear); Bilirubin,Urine Negative (Negative); Glucose,Urine (UA) 4+ (Negative); Leukocyte Esterase,Urine Negative (Negative); Nitrite,Urine Negative (Negative); Particle Count 2260; Protein,Urine Negative (Negative); RBC,Urine 1 /hpf (0-5); Squamous Epithelial Cell,Urine 10 /hpf (0-4); UA Billing (MACRO vs. MICRO) MICRO; Urobilinogen,Urine <2.0 mg/dL (<2.0); WBC,Urine 3 /hpf (0-5)
[2016-10-20 14:22] LABS: Ketones,Urine 3+ (Negative)
[2016-10-20 14:23] LABS: ALT 104 U/L (9-52); AST 62 U/L (14-36); Alkaline Phosphatase 200 U/L (38-126); Anion Gap 16 mmol/L; Blood Urea Nitrogen 11 mg/dL (7-17); Calcium 9.7 mg/dL (8.4-10.2); Carbon Dioxide 18 mmol/L (22-30); Chloride 101 mmol/L (98-107); Glucose 441 mg/dL (74-99); Magnesium 1.6 mg/dL (1.6-2.3); Non-African American GFR(MDRD) >60 (>60 ml/min/1.73 sqM); Phosphorous 4.3 mg/dL (2.5-4.5); Potassium 5.5 mmol/L (3.5-5.1); Sodium 135 mmol/L (137-145); Total Bilirubin 1.9 mg/dL (0.2-1.3); Total Protein 8.1 g/dL (6.3-8.2)
[2016-10-20 14:43] LABS: Glucose,Whole Blood 425 mg/dL (75-99)
[2016-10-20] MEDS ORDERED: SODIUM CHLORIDE 0.9% 1,000 ML IV ONE (15:42)
[2016-10-20] MEDS ORDERED: SODIUM CHLORIDE 0.9% 1,000 ML IV SCH (15:45)
--- NOTE | 2016-10-20 15:49 | XR ---
EXAMINATION TYPE: XR chest 2V DATE OF EXAM: 10/20/2016 2:50 PM COMPARISON: NONE INDICATION: Weakness dizziness fall TECHNIQUE: Single frontal view of the chest is obtained. FINDINGS: The heart size is normal. The pulmonary vasculature is normal. The lungs are clear. IMPRESSION: 1. No acute pulmonary process.
[2016-10-20] MEDS ORDERED: INSULIN REGULAR 100 UNIT in SODIUM CHLORIDE 0.9% 100 ML IV SCH (16:30)
[2016-10-20 16:50] LABS: Glucose,Whole Blood 327 mg/dL (75-99)
[2016-10-20 17:49] LABS: Glucose,Whole Blood 265 mg/dL (75-99)
[2016-10-20] MEDS ORDERED: diphenhydrAMINE 25 MG CAP PO PRN (17:59)
[2016-10-20] MEDS ORDERED: D5-0.45% NACL WITH KCL 20MEQ/L 1,000 ML IV SCH (18:00)
[2016-10-20] MEDS ORDERED: ALPRAZolam 0.25 MG TAB PO PRN (18:03)
[2016-10-20 18:50] LABS: Glucose,Whole Blood 259 mg/dL (75-99)
[2016-10-20] MEDS ORDERED: ONDANSETRON 4 MG/2 ML VIAL IVP PRN (19:40)
[2016-10-20 19:42] LABS: Glucose,Whole Blood 270 mg/dL (75-99)
[2016-10-20 20:18] LABS: Anion Gap 11 mmol/L; Carbon Dioxide 19 mmol/L (22-30); Chloride 107 mmol/L (98-107); Glucose 264 mg/dL (74-99); Non-African American GFR(MDRD) >60 (>60 ml/min/1.73 sqM); Sodium 137 mmol/L (137-145)
[2016-10-20 20:30] LABS: Blood Urea Nitrogen 8 mg/dL (7-17); Potassium 4.2 mmol/L (3.5-5.1)
[2016-10-20 20:31] LABS: Phosphorous 3.3 mg/dL (2.5-4.5)
[2016-10-20 20:43] LABS: Glucose,Whole Blood 241 mg/dL (75-99)
[2016-10-20 21:03] VITALS: BP 134/82; PULSE 122; RESP 20; TEMP 97.1
[2016-10-20] MEDS ORDERED: MELATONIN 5 MG TABLET PO PRN (21:14)
[2016-10-20] MEDS ORDERED: ALPRAZolam 0.5 MG TAB PO PRN (21:14)
[2016-10-20 21:47] LABS: Glucose,Whole Blood 246 mg/dL (75-99)
[2016-10-21 15:48] LABS: Anion Gap 13 mmol/L; Blood Urea Nitrogen 9 mg/dL (7-17); Carbon Dioxide 20 mmol/L (22-30); Chloride 106 mmol/L (98-107); Glucose 310 mg/dL (74-99); Non-African American GFR(MDRD) >60 (>60 ml/min/1.73 sqM); Potassium 4.3 mmol/L (3.5-5.1); Sodium 139 mmol/L (137-145)
== END 2016-10-20 23:02 | disposition left against medical advice (07) | DRG 639 ==
LOC: EC 12:57 → 6SEL 15:42
PROVIDERS: ADMIT Internal Medicine; ATTEND Internal Medicine
DX: E13.10 Other specified diabetes mellitus with ketoacidosis without coma (principal); F41.9 Anxiety disorder, unspecified; Z96.41 Presence of insulin pump (external) (internal); Z79.4 Long term (current) use of insulin; Z79.84 Long term (current) use of oral hypoglycemic drugs; Z79.899 Other long term (current) drug therapy; Z88.1 Allergy status to other antibiotic agents; Z88.5 Allergy status to narcotic agent; Z91.048 Other nonmedicinal substance allergy status; Z88.8 Allergy status to other drugs, medicaments and biological substances; Z90.49 Acquired absence of other specified parts of digestive tract
CPT/HCPCS: 36415; 71020; 80051; 80053; 81001; 82009; 82565; 82947; 83735; 84100; 84520; 85025; 96361; 96374; 96375; 99291

== ENCOUNTER 2016-10-28 17:23 | Emergency (ER) | payer OTHER ==
[2016-10-28 17:42] VITALS: RESP 18; TEMP 98.4
--- NOTE | 2016-10-28 18:03 | ED ---
Fall HPI - General Chief Complaint: Fall Stated Complaint: Fall Time Seen by Provider: 10/28/16 17:52 Source: patient, RN notes reviewed Mode of arrival: ambulatory Limitations: no limitations - History of Present Illness Initial Comments: 21-year-old female presents emergency Department with chief complaint fall. She states that she sat on a porch swing and states that it broke causing her fall and her right side. Patient states she twisted her ankle during the fall and complains of right wrist pain. She states she did fall on her right hip region which was sore but states she can weight-bear and has full range of motion. Denies any head injury no LOC. Patient states she's had prior right ankle and right wrist problems. Patient states her orthopedic doctor is Dr. Juárez. Patient denies any paresthesias patient denies any neck or back pain. - Related Data Home Medications Medication Instructions Recorded Confirmed ALPRAZolam [Xanax] 0.5 mg PO Q8H PRN 11/10/14 10/28/16 metFORMIN HCL 1,000 mg PO BID 09/19/15 10/28/16 Insulin Regular [HumuLIN R] See Protocol SQ-PUMP CONTINUOUS 04/22/16 10/28/16 Insulin Regular, Human [humulin R See Protocol SQ ACHS 10/20/16 10/28/16 U-500 Kwikpen] Previous Rx's Medication Instructions Recorded Ondansetron Odt [Zofran ODT] 4 mg PO Q8HR PRN #20 tab 08/29/16 Allergies Allergy/AdvReac Type Severity Reaction Status Date / Time amoxicillin [Amoxicillin] Allergy Severe Rash/Hives Verified 10/20/16 14:03 citalopram hydrobromide Allergy Severe Rash/Hives Verified 10/20/16 14:03 [From Celexa] adhesive Allergy Itching Verified 10/20/16 14:03 adhesive tape Allergy Itching Verified 10/20/16 14:03 pioglitazone HCl [From Actos] Allergy Rash/Hives Verified 10/20/16 14:03 codeine AdvReac Rash/Hives Verified 10/20/16 14:03 Review of Systems ROS Statement: Those systems with pertinent positive or pertinent negative responses have been documented in the HPI. ROS Other: All systems not noted in ROS Statement are negative. Past Medical History Past Medical History: Asthma, Diabetes Mellitus Additional Past Medical History / Comment(s): polycystic ovaries, TACHYCARDia History of Any Multi-Drug Resistant Organisms: None Reported Past Surgical History: Adenoidectomy, Cholecystectomy, Tonsillectomy Additional Past Surgical History / Comment(s): CYST REMOVAL FROM SINUS CAVITY, NOSE RECONSTRUCTION Past Anesthesia/Blood Transfusion Reactions: No Reported Reaction Past Psychological History: Anxiety, Depression Smoking Status: Never smoker Past Alcohol Use History: Occasional, Rare Past Drug Use History: None Reported Additional Drug Use History / Comment(s): PT STATES SMOKES MARIJUANA OCASSIONALY - Past Family History Mother Family Medical History: Diabetes Mellitus, Thyroid Disorder Additional Family Medical History / Comment(s): GESTATIONAL DIABETIC, BRAIN BLEED, DEPRESSION, ANXIETY Sister(s) Family Medical History: Thyroid Disorder Additional Family Medical History / Comment(s): DEPRESSION, ANXIETY General Exam Limitations: no limitations General appearance: alert, in no apparent distress Head exam: Present: atraumatic, normocephalic, normal inspection Neck exam: Present: normal inspection, full ROM. Absent: tenderness, meningismus, lymphadenopathy Respiratory exam: Present: normal lung sounds bilaterally. Absent: respiratory distress, wheezes, rales, rhonchi, stridor Cardiovascular Exam: Present: regular rate, normal rhythm, normal heart sounds. Absent: systolic murmur, diastolic murmur, rubs, gallop, clicks GI/Abdominal exam: Present: soft, normal bowel sounds. Absent: distended, tenderness, guarding, rebound, rigid Extremities exam: Present: other (Right wrist no obvious deformity neurovascular intact there is mild tenderness along the distal ulna and radius patient has no hand tenderness Refill less than 2 seconds, right ankle moderate lateral malleolus tenderness no ecchymosis no edema foot is nontender neurovascular intact negative Marie's test) Back exam: Present: full ROM. Absent: tenderness, paraspinal tenderness, vertebral tenderness Neurological exam: Present: alert, oriented X3, CN II-XII intact, reflexes normal. Absent: motor sensory deficit Skin exam: Present: warm, dry, intact, normal color. Absent: rash Course Vital Signs 10/28/16 17:39 Temperature 98.4 F Pulse Rate 105 H Respiratory 18 Rate Blood Pressure 148/92 O2 Sat by Pulse 98 Oximetry Medical Decision Making - Medical Decision Making 21-year-old female presented for fall. There is no acute fracture. Patient discharged. Disposition Clinical Impression: Fall, Ankle sprain Disposition: HOME SELF-CARE Condition: Stable Instructions: Ankle Sprain (ED) Additional Instructions: Please return to the Emergency Department if symptoms worsen or any other concerns. Referrals: Gemma Jacob MD [Primary Care Provider] - 1-2 days Time of Disposition: 19:08
--- NOTE | 2016-10-28 18:19 | XR ---
EXAMINATION TYPE: XR ankle complete RT DATE OF EXAM: 10/28/2016 6:08 PM COMPARISON: 12/02/2015 HISTORY: Pain TECHNIQUE: 3 views FINDINGS: I see no fracture nor dislocation. Joint spaces are normal. IMPRESSION: Negative right ankle. No change.
--- NOTE | 2016-10-28 18:20 | XR ---
EXAMINATION TYPE: XR wrist complete RT DATE OF EXAM: 10/28/2016 6:08 PM COMPARISON: NONE HISTORY: Pain TECHNIQUE: 4 views FINDINGS: I see no fracture nor dislocation. Joint spaces are normal. Soft tissues appear normal. IMPRESSION: Negative right wrist exam.
[2016-10-28 19:18] VITALS: BP 130/78; PULSE 102
== END 2016-10-28 19:17 | disposition home or self-care (01) ==
LOC: EC 17:23
DX: S93.401A Sprain of unspecified ligament of right ankle, initial encounter (principal); E11.9 Type 2 diabetes mellitus without complications; Z88.0 Allergy status to penicillin; Z91.048 Other nonmedicinal substance allergy status; Z88.5 Allergy status to narcotic agent; Z88.8 Allergy status to other drugs, medicaments and biological substances; Z79.84 Long term (current) use of oral hypoglycemic drugs; Z79.4 Long term (current) use of insulin; W17.89XA Other fall from one level to another, initial encounter
CPT/HCPCS: 99284

== ENCOUNTER 2016-11-29 11:13 | Emergency (ER) | payer OTHER ==
[2016-11-29] MEDS ORDERED: SODIUM CHLORIDE 0.9% 1,000 ML IV STA (11:31)
[2016-11-29] MEDS ORDERED: ONDANSETRON 4 MG/2 ML VIAL IVP STA (11:31)
[2016-11-29] MEDS ORDERED: INSULIN REGULAR 100 UNIT/ML VIAL SQ ONE (11:36)
--- NOTE | 2016-11-29 11:38 | ED ---
General Adult HPI - General Chief complaint: Recheck/Abnormal Lab/Rx Stated complaint: high blood sugar Time Seen by Provider: 11/29/16 11:26 Source: patient, RN notes reviewed Mode of arrival: ambulatory Limitations: no limitations - History of Present Illness Initial comments: Patient is a pleasant 21-year-old female presenting to the emergency department with hyperglycemia. Blood sugar prior to arrival was 300. Patient has diabetes. Patient did take her metformin. Patient is on an insulin pump. Patient ran out of insulin yesterday however pharmacist did not get the medicine and yet. She states they are going to get it in today. Patient complains of mild lightheadedness, mild nausea and mild dry mouth. No abdominal pain. No vomiting. No fevers. Patient is worried if she doesn't have insulin coverage that she could go into DKA and does not want to do that. - Related Data Home Medications Medication Instructions Recorded Confirmed ALPRAZolam [Xanax] 0.5 mg PO Q8H PRN 11/10/14 11/29/16 metFORMIN HCL 1,000 mg PO BID 09/19/15 11/29/16 Insulin Regular [HumuLIN R] See Protocol SQ-PUMP CONTINUOUS 04/22/16 11/29/16 Allergies Allergy/AdvReac Type Severity Reaction Status Date / Time amoxicillin [Amoxicillin] Allergy Severe Rash/Hives Verified 11/29/16 11:30 citalopram hydrobromide Allergy Severe Rash/Hives Verified 11/29/16 11:30 [From Celexa] adhesive Allergy Itching Verified 11/29/16 11:30 adhesive tape Allergy Itching Verified 11/29/16 11:30 codeine Allergy Rash/Hives Verified 11/29/16 11:30 pioglitazone HCl [From Actos] Allergy Rash/Hives Verified 11/29/16 11:30 Review of Systems ROS Statement: Those systems with pertinent positive or pertinent negative responses have been documented in the HPI. ROS Other: All systems not noted in ROS Statement are negative. Constitutional: Denies: fever Eyes: Denies: eye pain ENT: Denies: ear pain Respiratory: Denies: cough Cardiovascular: Denies: chest pain Endocrine: Denies: fatigue Gastrointestinal: Reports: nausea. Denies: abdominal pain Genitourinary: Denies: dysuria Musculoskeletal: Denies: back pain Skin: Denies: rash Neurological: Denies: weakness Past Medical History Past Medical History: Asthma, Diabetes Mellitus Additional Past Medical History / Comment(s): polycystic ovaries, TACHYCARDia History of Any Multi-Drug Resistant Organisms: None Reported Past Surgical History: Adenoidectomy, Cholecystectomy, Tonsillectomy Additional Past Surgical History / Comment(s): CYST REMOVAL FROM SINUS CAVITY, NOSE RECONSTRUCTION Past Anesthesia/Blood Transfusion Reactions: No Reported Reaction Past Psychological History: Anxiety, Depression Smoking Status: Never smoker Past Alcohol Use History: Occasional, Rare Past Drug Use History: None Reported - Past Family History Mother Family Medical History: Diabetes Mellitus, Thyroid Disorder Additional Family Medical History / Comment(s): GESTATIONAL DIABETIC, BRAIN BLEED, DEPRESSION, ANXIETY Sister(s) Family Medical History: Thyroid Disorder Additional Family Medical History / Comment(s): DEPRESSION, ANXIETY General Exam Limitations: no limitations General appearance: alert, in no apparent distress Head exam: Present: atraumatic Eye exam: Present: normal appearance, PERRL ENT exam: Present: normal oropharynx. Absent: mucous membranes dry Neck exam: Present: normal inspection Respiratory exam: Present: normal lung sounds bilaterally Cardiovascular Exam: Present: regular rate, normal rhythm GI/Abdominal exam: Present: soft. Absent: tenderness Extremities exam: Present: normal inspection. Absent: pedal edema, calf tenderness Neurological exam: Present: alert Psychiatric exam: Present: normal affect, normal mood Skin exam: Present: normal color Course Vital Signs 11/29/16 11:19 Temperature 97.8 F Pulse Rate 102 H Respiratory 20 Rate Blood Pressure 143/89 O2 Sat by Pulse 98 Oximetry Medical Decision Making - Medical Decision Making Patient reexamined and feeling better. Patient agrees to the importance of having her insulin picked up from pharmacy today. Patient will return if she is unable to get it or has worsening symptoms. - Lab Data Result diagrams: 11/29/16 12:11 11/29/16 12:11 Lab Results 11/29/16 11/29/16 11/29/16 Range/Units 12:11 12:11 12:19 WBC 9.1 (3.8-10.6) k/uL RBC 5.09 (3.80-5.40) m/uL Hgb 14.9 (11.4-16.0) gm/dL Hct 41.3 (34.0-46.0) % MCV 81.2 (80.0-100.0) fL MCH 29.4 (25.0-35.0) pg MCHC 36.2 (31.0-37.0) g/dL RDW 12.7 (11.5-15.5) % Plt Count 307 (150-450) k/uL Neutrophils % 72 % Lymphocytes % 22 % Monocytes % 3 % Eosinophils % 1 % Basophils % 0 % Neutrophils # 6.5 (1.3-7.7) k/uL Lymphocytes # 2.0 (1.0-4.8) k/uL Monocytes # 0.3 (0-1.0) k/uL Eosinophils # 0.1 (0-0.7) k/uL Basophils # 0.0 (0-0.2) k/uL Sodium 138 (137-145) mmol/L Potassium 4.8 (3.5-5.1) mmol/L Chloride 103 (98-107) mmol/L Carbon Dioxide 23 (22-30) mmol/L Anion Gap 12 mmol/L BUN 11 (7-17) mg/dL Creatinine 0.51 L (0.52-1.04) mg/dL Est GFR (MDRD) Af Amer >60 (>60 ml/min/1.73 sqM) Est GFR (MDRD) Non-Af >60 (>60 ml/min/1.73 sqM) Glucose 307 H (74-99) mg/dL POC Glucose (mg/dL) 294 H (75-99) mg/dL POC Glu Machinist Bench ID Yesenia Aguirre Calcium 9.8 (8.4-10.2) mg/dL Magnesium 1.6 (1.6-2.3) mg/dL Total Bilirubin 2.1 H (0.2-1.3) mg/dL AST 41 H (14-36) U/L ALT 91 H (9-52) U/L Alkaline Phosphatase 154 H (38-126) U/L Total Protein 7.9 (6.3-8.2) g/dL Albumin 4.7 (3.5-5.0) g/dL Urine Color Urine Appearance (Clear) Urine pH (5.0-8.0) Ur Specific [place] (1.001-1.035) Urine Protein (Negative) Urine Glucose (UA) (Negative) Urine Ketones (Negative) Urine Blood (Negative) Urine Nitrite (Negative) Urine Bilirubin (Negative) Urine Urobilinogen (<2.0) mg/dL Ur Leukocyte Esterase (Negative) Acetone, Qual Negative (Negative) 11/29/16 11/29/16 Range/Units 12:19 13:22 WBC (3.8-10.6) k/uL RBC (3.80-5.40) m/uL Hgb (11.4-16.0) gm/dL Hct (34.0-46.0) % MCV (80.0-100.0) fL MCH (25.0-35.0) pg MCHC (31.0-37.0) g/dL RDW (11.5-15.5) % Plt Count (150-450) k/uL Neutrophils % % Lymphocytes % % Monocytes % % Eosinophils % % Basophils % % Neutrophils # (1.3-7.7) k/uL Lymphocytes # (1.0-4.8) k/uL Monocytes # (0-1.0) k/uL Eosinophils # (0-0.7) k/uL Basophils # (0-0.2) k/uL Sodium (137-145) mmol/L Potassium (3.5-5.1) mmol/L Chloride (98-107) mmol/L Carbon Dioxide (22-30) mmol/L Anion Gap mmol/L BUN (7-17) mg/dL Creatinine (0.52-1.04) mg/dL Est GFR (MDRD) Af Amer (>60 ml/min/1.73 sqM) Est GFR (MDRD) Non-Af (>60 ml/min/1.73 sqM) Glucose (74-99) mg/dL POC Glucose (mg/dL) 279 H (75-99) mg/dL POC Glu Machinist Bench ID Yesenia Aguirre Calcium (8.4-10.2) mg/dL Magnesium (1.6-2.3) mg/dL Total Bilirubin (0.2-1.3) mg/dL AST (14-36) U/L ALT (9-52) U/L Alkaline Phosphatase (38-126) U/L Total Protein (6.3-8.2) g/dL Albumin (3.5-5.0) g/dL Urine Color Light Yellow Urine Appearance Clear (Clear) Urine pH 7.5 (5.0-8.0) Ur Specific [place] 1.020 (1.001-1.035) Urine Protein Negative (Negative) Urine Glucose (UA) 4+ H (Negative) Urine Ketones 2+ H (Negative) Urine Blood Negative (Negative) Urine Nitrite Negative (Negative) Urine Bilirubin Negative (Negative) Urine Urobilinogen <2.0 (<2.0) mg/dL Ur Leukocyte Esterase Negative (Negative) Acetone, Qual (Negative) Disposition Clinical Impression: Hyperglycemia Disposition: HOME SELF-CARE Condition: Stable Instructions: Diabetic Hyperglycemia (ED) Additional Instructions: 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 Return for unable to have insulin filled, increased blood sugar, vomiting, abdominal pain, weakness, worsening symptoms or other concerns. Referrals: Gemma Jacob MD [Primary Care Provider] - 1-2 days Time of Disposition: 13:29
[2016-11-29 12:20] LABS: Glucose,Whole Blood 294 mg/dL (75-99)
[2016-11-29 12:22] LABS: Basophils % (A) 0 %; CH 29.4; CHCM 36.4; Eosinophils # (A) 0.1 k/uL (0-0.7); Eosinophils % (A) 1 %; HCT 41.3 % (34.0-46.0); HGB 14.9 gm/dL (11.4-16.0); Luc # (Auto) 0.15; Luc % (Auto) 2; Lymphocytes % (A) 22 %; MCH 29.4 pg (25.0-35.0); MCHC 36.2 g/dL (31.0-37.0); MCV 81.2 fL (80.0-100.0); Mean Platelet Volume 7.4; Monocytes # (A) 0.3 k/uL (0-1.0); Monocytes % (A) 3 %; Neutrophils # (A) 6.5 k/uL (1.3-7.7); Neutrophils % (A) 72 %; RBC 5.09 m/uL (3.80-5.40); RDW 12.7 % (11.5-15.5); WBC 9.1 k/uL (3.8-10.6); WBC (Perox) 8.61
[2016-11-29 12:38] LABS: Appearance,Urine Clear (Clear); Bilirubin,Urine Negative (Negative); Glucose,Urine (UA) 4+ (Negative); Leukocyte Esterase,Urine Negative (Negative); Nitrite,Urine Negative (Negative); PH, Urine 7.5 (5.0-8.0); Protein,Urine Negative (Negative); UA Billing (MACRO vs. MICRO) CHEM; Urobilinogen,Urine <2.0 mg/dL (<2.0)
[2016-11-29 12:47] LABS: Ketones,Urine 2+ (Negative)
[2016-11-29 12:56] LABS: ALT 91 U/L (9-52); AST 41 U/L (14-36); Alkaline Phosphatase 154 U/L (38-126); Anion Gap 12 mmol/L; Blood Urea Nitrogen 11 mg/dL (7-17); Calcium 9.8 mg/dL (8.4-10.2); Carbon Dioxide 23 mmol/L (22-30); Chloride 103 mmol/L (98-107); Glucose 307 mg/dL (74-99); Magnesium 1.6 mg/dL (1.6-2.3); Non-African American GFR(MDRD) >60 (>60 ml/min/1.73 sqM); Potassium 4.8 mmol/L (3.5-5.1); Sodium 138 mmol/L (137-145); Total Bilirubin 2.1 mg/dL (0.2-1.3); Total Protein 7.9 g/dL (6.3-8.2)
[2016-11-29 13:24] LABS: Glucose,Whole Blood 279 mg/dL (75-99)
[2016-11-29 13:48] VITALS: BP 141/66; PULSE 83; RESP 18; TEMP 98
== END 2016-11-29 13:48 | disposition home or self-care (01) ==
LOC: EC 11:13
DX: E11.65 Type 2 diabetes mellitus with hyperglycemia (principal); R11.0 Nausea; Z79.4 Long term (current) use of insulin; Z79.84 Long term (current) use of oral hypoglycemic drugs; Z88.0 Allergy status to penicillin; Z88.5 Allergy status to narcotic agent; Z88.8 Allergy status to other drugs, medicaments and biological substances; Z91.048 Other nonmedicinal substance allergy status
CPT/HCPCS: 36415; 80053; 82009; 83735; 85025; 81003; 99284; 96374; 96361; J2405

== ENCOUNTER 2016-12-16 15:40 | Emergency (ER) | payer OTHER ==
[2016-12-16 15:45] VITALS: BP 137/83; PULSE 74; RESP 17; TEMP 98.1
--- NOTE | 2016-12-16 16:01 | ED ---
Eye Problem HPI - General Chief complaint: Eye Problems Stated complaint: Eye Swelling Time Seen by Provider: 12/16/16 15:48 Source: patient, RN notes reviewed Mode of arrival: ambulatory Limitations: no limitations - History of Present Illness Initial comments: 21-year-old female presents emergency Department chief complaint right eye swelling. Patient states she felt some irritation yesterday worse today. She noticed her upper eyelid was swollen. She states it seemed to be slightly red but has improved. Denies any change in patient denies any foreign body sensation. Denies any redness to her actual eye. Patient is concerned that she is diabetic. Patient states she was sugars have been well-controlled. Patient called her eye doctor was unable to get an appointment. - Related Data Home Medications Medication Instructions Recorded Confirmed ALPRAZolam [Xanax] 0.5 mg PO Q8H PRN 11/10/14 12/16/16 metFORMIN HCL 1,000 mg PO BID 09/19/15 12/16/16 Insulin Regular [HumuLIN R] See Protocol SQ-PUMP CONTINUOUS 04/22/16 12/16/16 Previous Rx's Medication Instructions Recorded Tobramycin [Tobrex 0.3% Ophth Soln] 1 drop RIGHT EYE Q4HR #5 ml 12/16/16 Allergies Allergy/AdvReac Type Severity Reaction Status Date / Time amoxicillin [Amoxicillin] Allergy Severe Rash/Hives Verified 12/16/16 15:48 citalopram hydrobromide Allergy Severe Rash/Hives Verified 12/16/16 15:48 [From Celexa] adhesive Allergy Itching Verified 12/16/16 15:48 adhesive tape Allergy Itching Verified 12/16/16 15:48 codeine Allergy Rash/Hives Verified 12/16/16 15:48 pioglitazone HCl [From Actos] Allergy Rash/Hives Verified 12/16/16 15:48 Review of Systems ROS Statement: Those systems with pertinent positive or pertinent negative responses have been documented in the HPI. ROS Other: All systems not noted in ROS Statement are negative. Past Medical History Past Medical History: Asthma, Diabetes Mellitus Additional Past Medical History / Comment(s): polycystic ovaries, TACHYCARDia History of Any Multi-Drug Resistant Organisms: None Reported Past Surgical History: Adenoidectomy, Cholecystectomy, Tonsillectomy Additional Past Surgical History / Comment(s): CYST REMOVAL FROM SINUS CAVITY, NOSE RECONSTRUCTION Past Anesthesia/Blood Transfusion Reactions: No Reported Reaction Past Psychological History: Anxiety, Depression Smoking Status: Never smoker Past Alcohol Use History: Occasional, Rare Past Drug Use History: None Reported - Past Family History Mother Family Medical History: Diabetes Mellitus, Thyroid Disorder Additional Family Medical History / Comment(s): GESTATIONAL DIABETIC, BRAIN BLEED, DEPRESSION, ANXIETY Sister(s) Family Medical History: Thyroid Disorder Additional Family Medical History / Comment(s): DEPRESSION, ANXIETY General Exam Limitations: no limitations General appearance: alert, in no apparent distress Head exam: Present: atraumatic, normocephalic, normal inspection Eye exam: Present: PERRL, EOMI, periorbital swelling (Mild swelling to the left upper eyelid noted to the right), periorbital tenderness (Minimal upper eyelid) . Absent: normal appearance, scleral icterus, conjunctival injection ENT exam: Present: normal exam, normal oropharynx, mucous membranes moist, TM's normal bilaterally, normal external ear exam Neck exam: Present: normal inspection. Absent: tenderness, meningismus, lymphadenopathy Respiratory exam: Present: normal lung sounds bilaterally. Absent: respiratory distress, wheezes, rales, rhonchi, stridor Cardiovascular Exam: Present: regular rate, normal rhythm, normal heart sounds. Absent: systolic murmur, diastolic murmur, rubs, gallop, clicks Course Vital Signs 12/16/16 15:43 Temperature 98.1 F Pulse Rate 74 Respiratory 17 Rate Blood Pressure 137/83 O2 Sat by Pulse 98 Oximetry Medical Decision Making - Medical Decision Making 21-year-old female presented emergency from for right eye irritation. Patient appears to have blepharitis. Patient's sclerae clear there is no foreign bodies. Patient has no visual changes. Patient has no periorbital tenderness other than right eyelid tenderness. Patient has no signs of periorbital cellulitis. Patient was placed on eyedrops at this time return parameters were discussed. 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 Prescriptions: Tobramycin [Tobrex 0.3% Ophth Soln] 1 drop RIGHT EYE Q4HR #5 ml Referrals: Gemma Jacob MD [Primary Care Provider] - 1-2 days Time of Disposition: 16:01
== END 2016-12-16 16:21 | disposition home or self-care (01) ==
LOC: EC 15:40
DX: H01.001 Unspecified blepharitis right upper eyelid (principal); E11.9 Type 2 diabetes mellitus without complications; Z88.0 Allergy status to penicillin; Z88.5 Allergy status to narcotic agent; Z91.048 Other nonmedicinal substance allergy status; Z88.8 Allergy status to other drugs, medicaments and biological substances; Z79.84 Long term (current) use of oral hypoglycemic drugs; Z79.4 Long term (current) use of insulin
CPT/HCPCS: 99283

== ENCOUNTER 2017-01-04 17:18 | Emergency (ER) | payer OTHER ==
[2017-01-04 17:25] VITALS: BP 134/93; PULSE 105; RESP 20; TEMP 97.9
--- NOTE | 2017-01-04 17:49 | ED ---
Upper Extremity HPI - General Chief Complaint: Extremity Injury, Upper Stated Complaint: FALL, LEFT HAND INJURY Time Seen by Provider: 01/04/17 17:35 Source: patient, RN/MD, RN notes reviewed Mode of arrival: ambulatory Limitations: no limitations - History of Present Illness Initial Comments: This is a [id number] 21-year-old female who presents emergency department complaining of left wrist pain. Patient states that she slipped on a wet kitchen floor and put her hand against the wall to stop herself and injured her left wrist. She is complaining of pain to the dorsum of the wrist which is exacerbated by movement. Pain is sharp in nature. There is no radiation of pain distally or proximally. Although the patient is complaining of some tingling sensation in her fingers. Patient denies any other injuries. There was no fall. No head or neck injury. MD Complaint: Injury to:: left, hand Onset/Timin -: hour(s) Other Extremity Injury: Wrist: Left Handedness: left - Related Data Home Medications Medication Instructions Recorded Confirmed ALPRAZolam [Xanax] 0.5 mg PO Q8H PRN 11/10/14 01/04/17 metFORMIN HCL 1,000 mg PO BID 09/19/15 01/04/17 Insulin Regular [HumuLIN R] See Protocol SQ-PUMP CONTINUOUS 04/22/16 01/04/17 Previous Rx's Medication Instructions Recorded Tobramycin [Tobrex 0.3% Ophth Soln] 1 drop RIGHT EYE Q4HR #5 ml 12/16/16 Naproxen [Naprosyn] 500 mg PO Q12HR #24 tab 01/04/17 Allergies Allergy/AdvReac Type Severity Reaction Status Date / Time amoxicillin [Amoxicillin] Allergy Severe Rash/Hives Verified 01/04/17 17:23 citalopram hydrobromide Allergy Severe Rash/Hives Verified 01/04/17 17:23 [From Celexa] adhesive Allergy Itching Verified 01/04/17 17:23 adhesive tape Allergy Itching Verified 01/04/17 17:23 codeine Allergy Rash/Hives Verified 01/04/17 17:23 pioglitazone HCl [From Actos] Allergy Rash/Hives Verified 01/04/17 17:23 Review of Systems ROS Statement: Those systems with pertinent positive or pertinent negative responses have been documented in the HPI. ROS Other: All systems not noted in ROS Statement are negative. Past Medical History Past Medical History: Asthma, Diabetes Mellitus Additional Past Medical History / Comment(s): polycystic ovaries, TACHYCARDia History of Any Multi-Drug Resistant Organisms: None Reported Past Surgical History: Adenoidectomy, Cholecystectomy, Tonsillectomy Additional Past Surgical History / Comment(s): CYST REMOVAL FROM SINUS CAVITY, NOSE RECONSTRUCTION Past Anesthesia/Blood Transfusion Reactions: No Reported Reaction Past Psychological History: Anxiety, Depression Smoking Status: Never smoker Past Alcohol Use History: Occasional, Rare Past Drug Use History: None Reported - Past Family History Mother Family Medical History: Diabetes Mellitus, Thyroid Disorder Additional Family Medical History / Comment(s): GESTATIONAL DIABETIC, BRAIN BLEED, DEPRESSION, ANXIETY Sister(s) Family Medical History: Thyroid Disorder Additional Family Medical History / Comment(s): DEPRESSION, ANXIETY General Exam Limitations: no limitations Course Vital Signs 01/04/17 17:23 Temperature 97.9 F Pulse Rate 105 H Respiratory 20 Rate Blood Pressure 134/93 O2 Sat by Pulse 99 Oximetry Disposition Clinical Impression: Left wrist sprain, Acute pain of left wrist Disposition: HOME SELF-CARE Condition: Good Instructions: Wrist Injury (ED) Additional Instructions: Wear the splint as directed. Make a follow-up plan with your orthopedic physician as directed. Return to the ER at once if the symptoms worsen or problems or difficulties arise. Elevate as much as possible. Apply ice 20 minutes on and off about 4 times per day. Do not get the splinting material wet. Prescriptions: Naproxen [Naprosyn] 500 mg PO Q12HR #24 tab Referrals: Rancho Juárez DO [Doctor of Osteopathic Medicine] - 01/07/17 Time of Disposition: 18:18
--- NOTE | 2017-01-04 18:04 | XR ---
EXAMINATION TYPE: XR wrist complete LT DATE OF EXAM: 01/04/2017 CLINICAL HISTORY: Left wrist pain after fall injury. TECHNIQUE: Frontal, lateral, scaphoid, and oblique images of the left wrist are obtained. COMPARISON: Left wrist x-ray December 07, 2013 FINDINGS: There is no acute fracture/dislocation evident in the left wrist. The joint spaces in the left wrist appear within normal limits. The overlying soft tissue appears unremarkable. IMPRESSION: There is no acute fracture or dislocation in the left wrist.
== END 2017-01-04 18:34 | disposition home or self-care (01) ==
LOC: EC 17:18
DX: S63.92XA Sprain of unspecified part of left wrist and hand, initial encounter (principal); E11.9 Type 2 diabetes mellitus without complications; Z79.4 Long term (current) use of insulin; Z88.0 Allergy status to penicillin; Z88.5 Allergy status to narcotic agent; Z88.8 Allergy status to other drugs, medicaments and biological substances; Z91.048 Other nonmedicinal substance allergy status; W22.01XA Walked into wall, initial encounter; Y92.000 Kitchen of unspecified non-institutional (private) residence as the place of occurrence of the external cause
CPT/HCPCS: 29125; 99283

== ENCOUNTER 2017-04-16 07:15 | Emergency (ER) | payer OTHER ==
[2017-04-16 07:22] VITALS: RESP 18; TEMP 97.7
[2017-04-16 08:06] LABS: ALT 109 U/L (9-52); AST 63 U/L (14-36); Alkaline Phosphatase 115 U/L (38-126); Anion Gap 11 mmol/L; Blood Urea Nitrogen 10 mg/dL (7-17); Calcium 9.5 mg/dL (8.4-10.2); Carbon Dioxide 21 mmol/L (22-30); Chloride 105 mmol/L (98-107); Glucose 199 mg/dL (74-99); Magnesium 1.5 mg/dL (1.6-2.3); Non-African American GFR(MDRD) >60 (>60 ml/min/1.73 sqM); Potassium 4.1 mmol/L (3.5-5.1); Sodium 137 mmol/L (137-145); Total Bilirubin 1.1 mg/dL (0.2-1.3); Total Protein 7.4 g/dL (6.3-8.2)
[2017-04-16 08:10] LABS: Basophils % (A) 0 %; CH 29.6; CHCM 35.9; Eosinophils # (A) 0.1 k/uL (0-0.7); Eosinophils % (A) 2 %; HCT 43.2 % (34.0-46.0); HDW 2.97; Luc % (Auto) 2; Lymphocytes # (A) 2.4 k/uL (1.0-4.8); Lymphocytes % (A) 28 %; MCH 28.8 pg (25.0-35.0); MCHC 34.8 g/dL (31.0-37.0); MCV 82.8 fL (80.0-100.0); Mean Platelet Volume 7.1; Monocytes # (A) 0.4 k/uL (0-1.0); Monocytes % (A) 5 %; Neutrophils # (A) 5.2 k/uL (1.3-7.7); Neutrophils % (A) 62 %; RBC 5.22 m/uL (3.80-5.40); RDW 12.3 % (11.5-15.5); WBC 8.3 k/uL (3.8-10.6); WBC (Perox) 7.89
[2017-04-16 08:26] LABS: Partial Thromboplastin Time 34.1 sec (22.0-30.0); Prothrombin Time 10.3 sec (9.0-12.0)
--- NOTE | 2017-04-16 09:15 | XR ---
EXAMINATION TYPE: XR chest 2V DATE OF EXAM: 04/16/2017 COMPARISON: Chest x-ray October 20, 2016 HISTORY: Chest pain and cough. TECHNIQUE: Frontal and lateral views of the chest are obtained. FINDINGS: There is no focal air space opacity, pleural effusion, or pneumothorax seen. The cardiac silhouette size is within normal limits. The osseous structures are intact. Cholecystectomy clips a re noted on lateral view. IMPRESSION: No acute cardiopulmonary process. No significant change from prior.
[2017-04-16 09:31] VITALS: BP 120/75; PULSE 110
--- NOTE | 2017-04-16 09:34 | ED ---
Chest Pain HPI - General Chief Complaint: Chest Pain Stated Complaint: Chest Pain, Abd Pain Time Seen by Provider: 04/16/17 07:30 Source: patient Mode of arrival: wheelchair Limitations: no limitations - History of Present Illness Initial Comments: Patient complains of sharp chest pain. Pain is the left side of the chest. It radiates more towards the left. She has no nausea, vomiting, diaphoresis. The pain began while she was driving. She has no history of recent long plane or car rides or surgery. She has no palpitations. She has no pain or swelling the legs. She has no nausea or vomiting. She has no diaphoresis. She has no focal weakness or trouble walking. She has taken no medication for the chest pain. She does have a recent cough. It is not productive. - Related Data Home Medications Medication Instructions Recorded Confirmed metFORMIN HCL 1,000 mg PO BID 09/19/15 04/16/17 Insulin Regular [HumuLIN R] See Protocol SQ-PUMP CONTINUOUS 04/22/16 04/16/17 Allergies Allergy/AdvReac Type Severity Reaction Status Date / Time amoxicillin [Amoxicillin] Allergy Severe Rash/Hives Verified 04/16/17 07:45 citalopram hydrobromide Allergy Severe Rash/Hives Verified 04/16/17 07:45 [From Celexa] adhesive Allergy Itching Verified 04/16/17 07:45 adhesive tape Allergy Itching Verified 04/16/17 07:45 codeine Allergy Rash/Hives Verified 04/16/17 07:45 pioglitazone HCl [From Actos] Allergy Rash/Hives Verified 04/16/17 07:45 Review of Systems ROS Statement: Those systems with pertinent positive or pertinent negative responses have been documented in the HPI. ROS Other: All systems not noted in ROS Statement are negative. EKG Findings - EKG Comments: EKG Findings:: Twelve-lead EKG interpreted by me showing ventricular rate 97 bpm , normal [place] interval and QRS complexes, no ST elevation or depression, interpreted by me as normal sinus rhythm. Past Medical History Past Medical History: Asthma, Diabetes Mellitus Additional Past Medical History / Comment(s): polycystic ovaries, TACHYCARDIA History of Any Multi-Drug Resistant Organisms: None Reported Past Surgical History: Adenoidectomy, Cholecystectomy, Tonsillectomy Additional Past Surgical History / Comment(s): CYST REMOVAL FROM SINUS CAVITY, NOSE RECONSTRUCTION Past Anesthesia/Blood Transfusion Reactions: No Reported Reaction Past Psychological History: Anxiety, Depression Smoking Status: Never smoker Past Alcohol Use History: Occasional, Rare Past Drug Use History: None Reported - Past Family History Mother Family Medical History: Diabetes Mellitus, Thyroid Disorder Additional Family Medical History / Comment(s): GESTATIONAL DIABETIC, BRAIN BLEED, DEPRESSION, ANXIETY Sister(s) Family Medical History: Thyroid Disorder Additional Family Medical History / Comment(s): DEPRESSION, ANXIETY General Exam Limitations: no limitations General appearance: alert, in no apparent distress Head exam: Present: atraumatic, normocephalic, normal inspection Eye exam: Present: normal appearance, PERRL, EOMI. Absent: scleral icterus, conjunctival injection, periorbital swelling ENT exam: Present: normal exam, mucous membranes moist Neck exam: Present: normal inspection. Absent: tenderness, meningismus, lymphadenopathy Respiratory exam: Present: normal lung sounds bilaterally. Absent: respiratory distress, wheezes, rales, rhonchi, stridor Cardiovascular Exam: Present: regular rate, normal rhythm, normal heart sounds. Absent: systolic murmur, diastolic murmur, rubs, gallop, clicks GI/Abdominal exam: Present: soft, normal bowel sounds. Absent: distended, tenderness, guarding, rebound, rigid Extremities exam: Present: normal inspection, full ROM, normal capillary refill. Absent: tenderness, pedal edema, joint swelling, calf tenderness Back exam: Present: normal inspection Neurological exam: Present: alert, oriented X3, CN II-XII intact Psychiatric exam: Present: normal affect, normal mood Skin exam: Present: warm, dry, intact, normal color. Absent: rash Course Vital Signs 04/16/17 04/16/17 04/16/17 07:19 07:48 08:42 Temperature 97.7 F Pulse Rate 117 H 104 H 96 Respiratory 18 18 18 Rate Blood Pressure 150/85 137/76 O2 Sat by Pulse 98 98 96 Oximetry 04/16/17 09:30 Temperature Pulse Rate 110 H Respiratory 18 Rate Blood Pressure 120/75 O2 Sat by Pulse 98 Oximetry Chest Pain MDM - [facility] Patient complains of chest pain. Her laboratory workup is negative. Her troponin is negative. Her d-dimer is negative. There is no evidence of an acute emergency condition. At this time she is stable for discharge and outpatient follow-up. Disposition Clinical Impression: Chest pain Disposition: HOME SELF-CARE Condition: Good Instructions: Chest Pain (ED) Referrals: Gemma Jacob MD [Primary Care Provider] - 1-2 days Time of Disposition: 09:34
== END 2017-04-16 09:49 | disposition home or self-care (01) ==
LOC: EC 07:15
DX: R07.9 Chest pain, unspecified (principal); R10.9 Unspecified abdominal pain; R05 Cough; E11.9 Type 2 diabetes mellitus without complications; Z79.84 Long term (current) use of oral hypoglycemic drugs; Z88.5 Allergy status to narcotic agent; Z88.0 Allergy status to penicillin; Z88.8 Allergy status to other drugs, medicaments and biological substances; Z91.048 Other nonmedicinal substance allergy status
CPT/HCPCS: 36415; 71020; 80053; 83690; 83735; 83880; 84484; 85025; 85379; 85610; 85730; 93005; 99285

== ENCOUNTER → 2017-06-06 | Outpatient (CLI) | payer OTHER ==
--- NOTE | 2017-06-06 17:08 | US ---
EXAMINATION TYPE: US transvaginal DATE OF EXAM: 06/06/2017 COMPARISON: 07/15/2015 CLINICAL HISTORY: R10.2 pelvic pain, N91.2 amenorrhea. Irregular cycles, history of PCOS, 0 TECHNIQUE: Transvaginal (TV) only per ordering physician Date of LMP: 03/06/2017 EXAM MEASUREMENTS: Uterus: 7.5 x 3.9 x 4.1 cm Endometrial Stripe: 1.0 cm Right Ovary: 4.1 x 2.9 x 2.2 cm Left Ovary: 3.4 x 2.0 x 2.3 cm 1. Uterus: anteverted, heterogeneous, multiple nabothian cysts 2. Endometrium: appears wnl 3. Right Ovary: multiple follicles 4. Left Ovary: multiple follicles 5. Bilateral Adnexa: wnl 6. Posterior cul-de-sac: tiny amount of free fluid IMPRESSION: There is trace free fluid in the cul-de-sac which is probably physiologic. Negative trans vaginal pelvic sonogram.
== END | disposition home or self-care (01) ==
LOC: RADUSWWP 16:22
PROVIDERS: ATTEND Family Medicine
DX: E28.2 Polycystic ovarian syndrome (principal); R10.2 Pelvic and perineal pain; E10.65 Type 1 diabetes mellitus with hyperglycemia
CPT/HCPCS: 76830

== ENCOUNTER 2017-07-03 07:49 | Emergency (ER) | payer OTHER ==
--- NOTE | 2017-07-03 08:24 | ED ---
General Adult HPI - General Chief complaint: Upper Respiratory Infection Stated complaint: Flu Time Seen by Provider: 07/03/17 08:14 Source: patient, RN notes reviewed Mode of arrival: ambulatory Limitations: no limitations - History of Present Illness Initial comments: Patient is a 21-year-old female who presents emergency room today with a chief complaint of possible influenza. She does admit some body aches and chills that started last night into this morning. She states she's had a mild cough congestion over the last 3 days. Doesn't some sputum production. 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 States she's been exposed to multiple people with influenza. She denies any other complaints or symptoms at this time. Patient denies any recent shortness of breath, chest pain, back pain, abdominal pain, nausea or vomiting, numbness or tingling, headaches or visual changes, or any other complaints. - Related Data Home Medications Medication Instructions Recorded Confirmed metFORMIN HCL 1,000 mg PO BID 09/19/15 07/03/17 Insulin Regular [HumuLIN R] See Protocol SQ-PUMP CONTINUOUS 04/22/16 07/03/17 Tcm-Zgti-Dqyur Acid 1 cap PO DAILY 07/03/17 07/03/17 [-U Capsule (formulary)] Previous Rx's Medication Instructions Recorded Oseltamivir [Tamiflu] 75 mg PO Q12HR 5 Days cap 07/03/17 Allergies Allergy/AdvReac Type Severity Reaction Status Date / Time amoxicillin [Amoxicillin] Allergy Severe Rash/Hives Verified 07/03/17 08:08 citalopram hydrobromide Allergy Severe Rash/Hives Verified 07/03/17 08:08 [From Celexa] adhesive Allergy Rash/Hives Verified 07/03/17 08:08 adhesive tape Allergy Rash/Hives Verified 07/03/17 08:08 codeine Allergy Rash/Hives Verified 07/03/17 08:08 pioglitazone HCl [From Actos] Allergy Rash/Hives/Abdominal Verified 07/03/17 08 :08 pain/Blood sugar issues Review of Systems ROS Statement: Those systems with pertinent positive or pertinent negative responses have been documented in the HPI. ROS Other: All systems not noted in ROS Statement are negative. Past Medical History Past Medical History: Asthma, Diabetes Mellitus Additional Past Medical History / Comment(s): polycystic ovaries, TACHYCARDIA History of Any Multi-Drug Resistant Organisms: None Reported Past Surgical History: Adenoidectomy, Cholecystectomy, Tonsillectomy Additional Past Surgical History / Comment(s): CYST REMOVAL FROM SINUS CAVITY, NOSE RECONSTRUCTION Past Anesthesia/Blood Transfusion Reactions: No Reported Reaction Past Psychological History: Anxiety, Depression Smoking Status: Never smoker Past Alcohol Use History: Occasional, Rare Past Drug Use History: None Reported - Past Family History Mother Family Medical History: Diabetes Mellitus, Thyroid Disorder Additional Family Medical History / Comment(s): GESTATIONAL DIABETIC, BRAIN BLEED, DEPRESSION, ANXIETY Sister(s) Family Medical History: Thyroid Disorder Additional Family Medical History / Comment(s): DEPRESSION, ANXIETY General Exam - General Exam Comments Initial Comments: General: The patient is awake and alert, in no distress, and does not appear acutely ill. Eye: Pupils are equal, round and reactive to light, extra-ocular movements are intact. No nystagmus. There is normal conjunctiva bilaterally. No signs of icterus. Ears, nose, mouth and throat: There are moist mucous membranes and no oral lesions. Neck: The neck is supple, there is no tenderness or JVD. Cardiovascular: There is a regular rate and rhythm. No murmur, rub or gallop is appreciated. Respiratory: Lungs are clear to auscultation, respirations are non-labored, breath sounds are equal. No wheezes, stridor, rales, or rhonchi. Musculoskeletal: Normal ROM, no tenderness. Strength 5/5. Sensation intact. Pulses equal bilaterally 2+. Neurological: A&O x 3. CN II-XII intact, There are no obvious motor or sensory deficits. Coordination appears grossly intact. Speech is normal. Skin: Skin is warm and dry and no rashes or lesions are noted. Psychiatric: Cooperative, appropriate mood & affect, normal judgment. Limitations: no limitations Course Vital Signs 07/03/17 07/03/17 07:51 08:23 Temperature 97.8 F Pulse Rate 111 H Respiratory 16 14 Rate Blood Pressure 159/83 O2 Sat by Pulse 99 Oximetry Medical Decision Making - Medical Decision Making Patient reexamined at this time shows no signs of distress. She is comfortably sitting in the stretcher on her phone. Patient's chest x-rays negative for any pneumonia. Her symptoms are consistent with an influenza. She's been around other people with influenza. Or influence swab was negative.. She will be treated with Tamiflu. - Lab Data Lab Results 07/03/17 Range/Units 08:35 Influenza Type A RNA Not Detected (Not Detectd) Influenza Type B (PCR) Not Detected (Not Detectd) Disposition Clinical Impression: Influenza Disposition: HOME SELF-CARE Condition: Good Instructions: Influenza (ED) Additional Instructions: Please use medication as discussed. Please follow-up with family doctor in the next 2 days of symptoms have not improved. Please return to emergency room if the symptoms increase or worsen or for any other concerns. Prescriptions: Oseltamivir [Tamiflu] 75 mg PO Q12HR 5 Days cap Referrals: Gemma Jacob MD [Primary Care Provider] - 1-2 days Time of Disposition: 09:43
--- NOTE | 2017-07-03 08:31 | XR ---
EXAMINATION TYPE: XR chest 2V DATE OF EXAM: 07/03/2017 COMPARISON: NONE HISTORY: Cough, congestion, and fever for 2 days TECHNIQUE: Frontal and lateral views of the chest are obtained. FINDINGS: There is no focal air space opacity, pleural effusion, or pneumothorax seen. The cardiac silhouette size is within normal limits. The osseous structures are intact. Cholecystectomy clips a re noted within the right upper quadrant. IMPRESSION: No acute cardiopulmonary process.
[2017-07-03 09:56] VITALS: BP 136/68; PULSE 100; RESP 16; TEMP 97.4
== END 2017-07-03 09:59 | disposition home or self-care (01) ==
LOC: EC 07:49
DX: J11.1 Influenza due to unidentified influenza virus with other respiratory manifestations (principal); E11.9 Type 2 diabetes mellitus without complications; Z90.89 Acquired absence of other organs; Z88.0 Allergy status to penicillin; Z91.048 Other nonmedicinal substance allergy status; Z88.5 Allergy status to narcotic agent; Z88.8 Allergy status to other drugs, medicaments and biological substances; Z79.84 Long term (current) use of oral hypoglycemic drugs; Z79.4 Long term (current) use of insulin; Z79.899 Other long term (current) drug therapy
CPT/HCPCS: 71046; 87502; 99283

== ENCOUNTER 2017-09-25 08:33 | Emergency (ER) | payer BC, OTHER ==
[2017-09-25] MEDS ORDERED: SODIUM CHLORIDE 0.9% 2,000 ML IV STA (08:39)
[2017-09-25] MEDS ORDERED: ONDANSETRON 4 MG/2 ML VIAL IVP STA (08:51)
--- NOTE | 2017-09-25 08:54 | ED ---
General Adult HPI - General Chief complaint: Recheck/Abnormal Lab/Rx Stated complaint: Diabetic-High Blood Sugar Time Seen by Provider: 09/25/17 08:39 Source: patient, RN notes reviewed Mode of arrival: ambulatory Limitations: no limitations - History of Present Illness Initial comments: This is a 22-year-old female presents emergency Department chief complaint of hyperglycemia. Patient states she woke up her blood sugar was 397. She states that her morning fasting blood glucose is normally not this high. 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 Patient states that she feels very thirsty feels, confused and is concerned about DKA. Patient does have polyuria and polydipsia. Patient denies any fever, chills. She has had a viral URI that she was checked out for. States it is improving. She has no abdominal plain she does admit to some nausea no vomiting no diarrhea - Related Data Home Medications Medication Instructions Recorded Confirmed metFORMIN HCL 1,000 mg PO BID 09/19/15 09/25/17 Insulin Regular [HumuLIN R] See Protocol SQ-PUMP CONTINUOUS 04/22/16 09/25/17 Oeh-Xuhx-Fdpuk Acid 1 cap PO DAILY 07/03/17 09/25/17 [-U Capsule (formulary)] Allergies Allergy/AdvReac Type Severity Reaction Status Date / Time amoxicillin [Amoxicillin] Allergy Severe Rash/Hives Verified 09/25/17 08:49 citalopram hydrobromide Allergy Severe Rash/Hives Verified 09/25/17 08:49 [From Celexa] adhesive Allergy Rash/Hives Verified 09/25/17 08:49 adhesive tape Allergy Rash/Hives Verified 09/25/17 08:49 codeine Allergy Rash/Hives Verified 09/25/17 08:49 pioglitazone HCl [From Actos] Allergy Rash/Hives/Abdominal Verified 09/25/17 08 :49 pain/Blood sugar issues Review of Systems ROS Statement: Those systems with pertinent positive or pertinent negative responses have been documented in the HPI. ROS Other: All systems not noted in ROS Statement are negative. Past Medical History Past Medical History: Asthma, Diabetes Mellitus Additional Past Medical History / Comment(s): polycystic ovaries, TACHYCARDIA History of Any Multi-Drug Resistant Organisms: None Reported Past Surgical History: Adenoidectomy, Cholecystectomy, Tonsillectomy Additional Past Surgical History / Comment(s): CYST REMOVAL FROM SINUS CAVITY, NOSE RECONSTRUCTION Past Anesthesia/Blood Transfusion Reactions: No Reported Reaction Past Psychological History: Anxiety, Depression Smoking Status: Never smoker Past Alcohol Use History: Occasional, Rare Past Drug Use History: None Reported - Past Family History Mother Family Medical History: Diabetes Mellitus, Thyroid Disorder Additional Family Medical History / Comment(s): GESTATIONAL DIABETIC, BRAIN BLEED, DEPRESSION, ANXIETY Sister(s) Family Medical History: Thyroid Disorder Additional Family Medical History / Comment(s): DEPRESSION, ANXIETY General Exam Limitations: no limitations General appearance: alert, in no apparent distress Head exam: Present: atraumatic, normocephalic, normal inspection Eye exam: Present: normal appearance, PERRL, EOMI. Absent: scleral icterus, conjunctival injection, periorbital swelling ENT exam: Present: normal exam, normal oropharynx, mucous membranes moist Neck exam: Present: normal inspection, full ROM. Absent: tenderness, meningismus, lymphadenopathy Respiratory exam: Present: normal lung sounds bilaterally. Absent: respiratory distress, wheezes, rales, rhonchi, stridor Cardiovascular Exam: Present: normal rhythm, tachycardia, normal heart sounds. Absent: systolic murmur, diastolic murmur, rubs, gallop, clicks GI/Abdominal exam: Present: soft, normal bowel sounds. Absent: distended, tenderness, guarding, rebound, rigid Neurological exam: Present: alert, oriented X3, CN II-XII intact Skin exam: Present: warm, dry, intact, normal color. Absent: rash Course Vital Signs 09/25/17 09/25/17 08:37 09:41 Temperature 98.3 F Pulse Rate 109 H 94 Respiratory 20 18 Rate Blood Pressure 147/89 124/61 O2 Sat by Pulse 99 97 Oximetry Medical Decision Making - Medical Decision Making 22-year-old female presented emergency department for concerns of DKA. Patient did have mild hyperglycemia and she is well-hydrated she does have 4+ glucose, 1 + ketones. Patient will be given for units of insulin in the emergency room. She'll follow up with her lab support technician. She does have mild shoulder LFTs which is normal baseline for her. Patient states that she does feel better at this time. - Lab Data Result diagrams: 09/25/17 09:13 09/25/17 09:13 Lab Results 09/25/17 09/25/17 09/25/17 Range/Units 09:13 09:13 09:30 WBC 8.0 (3.8-10.6) k/uL RBC 5.33 (3.80-5.40) m/uL Hgb 14.8 (11.4-16.0) gm/dL Hct 42.7 (34.0-46.0) % MCV 80.1 (80.0-100.0) fL MCH 27.9 (25.0-35.0) pg MCHC 34.8 (31.0-37.0) g/dL RDW 12.7 (11.5-15.5) % Plt Count 296 (150-450) k/uL Neutrophils % 64 % Lymphocytes % 26 % Monocytes % 5 % Eosinophils % 3 % Basophils % 1 % Neutrophils # 5.1 (1.3-7.7) k/uL Lymphocytes # 2.1 (1.0-4.8) k/uL Monocytes # 0.4 (0-1.0) k/uL Eosinophils # 0.2 (0-0.7) k/uL Basophils # 0.0 (0-0.2) k/uL Sodium 137 (137-145) mmol/L Potassium 4.1 (3.5-5.1) mmol/L Chloride 102 (98-107) mmol/L Carbon Dioxide 23 (22-30) mmol/L Anion Gap 12 mmol/L BUN 10 (7-17) mg/dL Creatinine 0.50 L (0.52-1.04) mg/dL Est GFR (CKD-EPI)AfAm >90 (>60 ml/min/1.73 sqM) Est GFR (CKD-EPI)NonAf >90 (>60 ml/min/1.73 sqM) Glucose 254 H (74-99) mg/dL POC Glucose (mg/dL) 245 H (75-99) mg/dL POC Glu [employer]ace Utility Operator ID Magaly Rivera Calcium 9.2 (8.4-10.2) mg/dL Total Bilirubin 1.3 (0.2-1.3) mg/dL AST 61 H (14-36) U/L ALT 112 H (9-52) U/L Alkaline Phosphatase 162 H (38-126) U/L Total Protein 7.0 (6.3-8.2) g/dL Albumin 4.1 (3.5-5.0) g/dL Amylase 51 (30-110) U/L Lipase 64 (23-300) U/L Urine Color Urine Appearance (Clear) Urine pH (5.0-8.0) Ur Specific Dawson (1.001-1.035) Urine Protein (Negative) Urine Glucose (UA) (Negative) Urine Ketones (Negative) Urine Blood (Negative) Urine Nitrite (Negative) Urine Bilirubin (Negative) Urine Urobilinogen (<2.0) mg/dL Ur Leukocyte Esterase (Negative) Urine HCG, Qual (Not Detectd) Acetone, Qual Negative (Negative) 09/25/17 09/25/17 Range/Units 10:02 10:02 WBC (3.8-10.6) k/uL RBC (3.80-5.40) m/uL Hgb (11.4-16.0) gm/dL Hct (34.0-46.0) % MCV (80.0-100.0) fL MCH (25.0-35.0) pg MCHC (31.0-37.0) g/dL RDW (11.5-15.5) % Plt Count (150-450) k/uL Neutrophils % % Lymphocytes % % Monocytes % % Eosinophils % % Basophils % % Neutrophils # (1.3-7.7) k/uL Lymphocytes # (1.0-4.8) k/uL Monocytes # (0-1.0) k/uL Eosinophils # (0-0.7) k/uL Basophils # (0-0.2) k/uL Sodium (137-145) mmol/L Potassium (3.5-5.1) mmol/L Chloride (98-107) mmol/L Carbon Dioxide (22-30) mmol/L Anion Gap mmol/L BUN (7-17) mg/dL Creatinine (0.52-1.04) mg/dL Est GFR (CKD-EPI)AfAm (>60 ml/min/1.73 sqM) Est GFR (CKD-EPI)NonAf (>60 ml/min/1.73 sqM) Glucose (74-99) mg/dL POC Glucose (mg/dL) (75-99) mg/dL POC Glu Furnace Utility Operator ID Calcium (8.4-10.2) mg/dL Total Bilirubin (0.2-1.3) mg/dL AST (14-36) U/L ALT (9-52) U/L Alkaline Phosphatase (38-126) U/L Total Protein (6.3-8.2) g/dL Albumin (3.5-5.0) g/dL Amylase (30-110) U/L Lipase (23-300) U/L Urine Color Yellow Urine Appearance Clear (Clear) Urine pH 5.5 (5.0-8.0) Ur Specific Dawson 1.025 (1.001-1.035) Urine Protein Trace H (Negative) Urine Glucose (UA) 4+ H (Negative) Urine Ketones 1+ H (Negative) Urine Blood Negative (Negative) Urine Nitrite Negative (Negative) Urine Bilirubin Negative (Negative) Urine Urobilinogen <2.0 (<2.0) mg/dL Ur Leukocyte Esterase Negative (Negative) Urine HCG, Qual Not Detected (Not Detectd) Acetone, Qual (Negative) Disposition Clinical Impression: Hyperglycemia due to type 1 diabetes mellitus Disposition: HOME SELF-CARE Condition: Stable Instructions: Diabetic Hyperglycemia (ED) Additional Instructions: Please return to the Emergency Department if symptoms worsen or any other concerns. Is patient prescribed a controlled substance at d/c from ED?: No If prescribed controlled substance>3 days was MAPS reviewed?: No When asked, does pt state using other controlled substances?: No Referrals: Gemma Jacob MD [Primary Care Provider] - 1-2 days
[2017-09-25] MEDS ORDERED: ALPRAZolam 0.5 MG TAB PO STA (09:19)
[2017-09-25 09:30] LABS: Basophils % (A) 1 %; Eosinophils # (A) 0.2 k/uL (0-0.7); Eosinophils % (A) 3 %; HCT 42.7 % (34.0-46.0); HGB 14.8 gm/dL (11.4-16.0); Lymphocytes # (A) 2.1 k/uL (1.0-4.8); Lymphocytes % (A) 26 %; MCH 27.9 pg (25.0-35.0); MCHC 34.8 g/dL (31.0-37.0); MCV 80.1 fL (80.0-100.0); Mean Platelet Volume 7.5; Monocytes # (A) 0.4 k/uL (0-1.0); Monocytes % (A) 5 %; Neutrophils # (A) 5.1 k/uL (1.3-7.7); Neutrophils % (A) 64 %; Platelet Count 296 k/uL (150-450); RBC 5.33 m/uL (3.80-5.40); RDW 12.7 % (11.5-15.5)
[2017-09-25 09:31] LABS: Glucose,Whole Blood 245 mg/dL (75-99)
[2017-09-25 09:43] VITALS: RESP 18
[2017-09-25 09:53] LABS: ALT 112 U/L (9-52); AST 61 U/L (14-36); Albumin 4.1 g/dL (3.5-5.0); Alkaline Phosphatase 162 U/L (38-126); Amylase 51 U/L (30-110); Anion Gap 12 mmol/L; Blood Urea Nitrogen 10 mg/dL (7-17); Calcium 9.2 mg/dL (8.4-10.2); Carbon Dioxide 23 mmol/L (22-30); Chloride 102 mmol/L (98-107); Glucose 254 mg/dL (74-99); Lipase 64 U/L (23-300); Potassium 4.1 mmol/L (3.5-5.1); Sodium 137 mmol/L (137-145); Total Bilirubin 1.3 mg/dL (0.2-1.3)
[2017-09-25 10:20] LABS: Appearance,Urine Clear (Clear); Bilirubin,Urine Negative (Negative); Blood,Urine Negative (Negative); Color,Urine Yellow; Glucose,Urine (UA) 4+ (Negative); Ketones,Urine 1+ (Negative); Leukocyte Esterase,Urine Negative (Negative); Nitrite,Urine Negative (Negative); PH, Urine 5.5 (5.0-8.0); Protein,Urine Trace (Negative); Specific Gravity,Urine 1.025 (1.001-1.035); Urobilinogen,Urine <2.0 mg/dL (<2.0)
[2017-09-25] MEDS ORDERED: INSULIN ASPART 100 UNIT/ML 1 ML 10 ML VIAL SQ ONE (10:25)
[2017-09-25 10:33] LABS: Glucose,Whole Blood 212 mg/dL (75-99)
[2017-09-25 13:01] VITALS: BP 136/70; PULSE 104; TEMP 98.1
== END 2017-09-25 10:56 | disposition home or self-care (01) ==
LOC: EC 08:33
DX: E10.65 Type 1 diabetes mellitus with hyperglycemia (principal); R11.0 Nausea; Z88.0 Allergy status to penicillin; Z88.1 Allergy status to other antibiotic agents; Z88.5 Allergy status to narcotic agent; Z88.8 Allergy status to other drugs, medicaments and biological substances; Z91.048 Other nonmedicinal substance allergy status; Z79.4 Long term (current) use of insulin; Z79.84 Long term (current) use of oral hypoglycemic drugs
CPT/HCPCS: 99284; 96360; 96361; 36415; 80053; 82150; 82009; 83690; 85025; 81003; 81025; J2405

== ENCOUNTER → 2017-11-14 | Outpatient (CLI) | payer OTHER, BC ==
[2017-11-14 07:34] LABS: Basophils % (A) 1 %; Eosinophils # (A) 0.1 k/uL (0-0.7); Eosinophils % (A) 2 %; HCT 43.4 % (34.0-46.0); Lymphocytes # (A) 2.3 k/uL (1.0-4.8); Lymphocytes % (A) 29 %; MCH 28.9 pg (25.0-35.0); MCHC 34.6 g/dL (31.0-37.0); MCV 83.6 fL (80.0-100.0); Monocytes # (A) 0.4 k/uL (0-1.0); Monocytes % (A) 5 %; Neutrophils % (A) 62 %; Platelet Count 249 k/uL (150-450); RDW 13.8 % (11.5-15.5); WBC 8.1 k/uL (3.8-10.6)
[2017-11-14 07:36] LABS: Appearance,Urine Clear (Clear); Bacteria,Urine Rare /hpf; Bilirubin,Urine Negative (Negative); Blood,Urine Negative (Negative); Color,Urine Light Yellow; Glucose,Urine (UA) 4+ (Negative); Leukocyte Esterase,Urine Small (Negative); Nitrite,Urine Negative (Negative); Protein,Urine Negative (Negative); Specific Gravity,Urine 1.021 (1.001-1.035); Squamous Epithelial Cell,Urine 10 /hpf (0-4); Urobilinogen,Urine <2.0 mg/dL (<2.0); WBC,Urine 4 /hpf (0-5)
--- NOTE | 2017-11-14 07:48 | US ---
EXAMINATION TYPE: US abdomen complete DATE OF EXAM: 11/14/2017 COMPARISON: US & CT CLINICAL HISTORY: R11.0 Nausea, E10.65 Type I Diabetes,R94.5. EXAM MEASUREMENTS: Liver Length: 17.1 cm Gallbladder Wall: Surgically absent cm CBD: 0.4 cm Spleen: 11.8 cm Right Kidney: 12.5 x 5.7 x 7.0 cm Left Kidney: 12.1 x 6.1 x 5.9 cm Technically difficult study due to midline bowel gas and body habitus. Pancreas: not well visualized due to midline bowel gas Liver: Liver parenchyma is diffusely hyperechoic with diminished visualization of the portal triads m ost commonly related to mild hepatic steatosis and limiting evaluation for underlying hepatic masses. Gallbladder: Surgically absent CBD: wnl Spleen: wnl Right Kidney: No hydronephrosis or masses seen Left Kidney: No hydronephrosis or masses seen Upper IVC: wnl Abd Aorta: limited visualization due to bowel gas. The intrahepatic portion of the IVC and proximal abdominal aorta are within normal limits. Common khari e duct is unremarkable. The visualized portions of the pancreas are homogenous. The spleen is unrem arkable. Kidneys are symmetric and free of hydronephrosis. No renal lesions are seen. IMPRESSION: Findings most typically related to mild degree hepatic steatosis. Surgical absence of the gallbladder.
[2017-11-14 07:59] LABS: ALT 124 U/L (9-52); AST 68 U/L (14-36); Albumin 4.1 g/dL (3.5-5.0); Alkaline Phosphatase 162 U/L (38-126); Amylase 50 U/L (30-110); Anion Gap 12 mmol/L; Blood Urea Nitrogen 10 mg/dL (7-17); Calcium 9.3 mg/dL (8.4-10.2); Carbon Dioxide 21 mmol/L (22-30); Chloride 104 mmol/L (98-107); Glucose 335 mg/dL (74-99); Lipase 61 U/L (23-300); Potassium 4.6 mmol/L (3.5-5.1); Sodium 137 mmol/L (137-145); Total Bilirubin 1.4 mg/dL (0.2-1.3); Total Protein 6.6 g/dL (6.3-8.2)
[2017-11-14 08:00] LABS: Ketones,Urine 2+ (Negative)
== END | disposition home or self-care (01) ==
LOC: RADUSWWP 06:50
PROVIDERS: ATTEND Family Medicine
DX: R11.0 Nausea (principal); E10.65 Type 1 diabetes mellitus with hyperglycemia; R94.5 Abnormal results of liver function studies; Z90.49 Acquired absence of other specified parts of digestive tract; R35.0 Frequency of micturition
CPT/HCPCS: 36415; 76700; 80053; 81001; 82150; 83690; 85025

== ENCOUNTER 2017-11-18 07:36 | Emergency (ER) | payer OTHER, BC ==
[2017-11-18 07:44] VITALS: TEMP 97.9
[2017-11-18] MEDS ORDERED: methylPREDNISolone SOD SUCCI 125 MG/2 ML VIAL IV STA (08:25)
[2017-11-18] MEDS ORDERED: IPRATROPIUM-ALBUTEROL 3 ML NEB INHALATION STA (08:25)
[2017-11-18] MEDS ORDERED: SODIUM CHLORIDE 0.9% 1,000 ML IV STA (08:25)
--- NOTE | 2017-11-18 08:28 | ED ---
SOB HPI - General Chief Complaint: Shortness of Breath Stated Complaint: Chest Congestion Time Seen by Provider: 11/18/17 08:05 Source: patient, RN notes reviewed, old records reviewed Mode of arrival: ambulatory Limitations: no limitations - History of Present Illness Initial Comments: This patient's a 22-year-old female chief complaint of cough, congestion and loss of voice. She reports that she's been having some shortness of breath and chest tightness. Patient states that she is a type I diabetic, her blood sugars have been running in the upper 400s. She did have a dental infection and had emergency surgery to have her tooth removed due to the infection. He states that that happened 3 weeks ago and since that her blood sugars have been elevated. She reports recently had blood work and she is told she was dehydrated. Known recent nausea or vomiting. Cough been productive green- yellow sputum. - Related Data Home Medications Medication Instructions Recorded Confirmed metFORMIN HCL 1,000 mg PO BID 09/19/15 11/18/17 Insulin Regular [HumuLIN R] See Protocol SQ DAILY 04/22/16 11/18/17 ALPRAZolam [Xanax] 0.5 mg PO DAILY PRN 11/18/17 11/18/17 INSULIN LISPRO (HumaLOG) [HumaLOG] See Protocol SQ ACHS 11/18/17 11/18/17 Insulin Glargine,Hum.rec.anlog 40 units SQ HS 11/18/17 11/18/17 [Estrada Barnett] Previous Rx's Medication Instructions Recorded Albuterol Inhaler [Ventolin Hfa 1 - 2 puff INHALATION RT-Q6H PRN 11/18/17 Inhaler] #1 inhaler Azithromycin 250 mg PO DAILY #6 tablet 11/18/17 methylPREDNISolone Dose Pack 4 mg PO DIRECTED #21 package 11/18/17 [Medrol Dose Pack] Allergies Allergy/AdvReac Type Severity Reaction Status Date / Time amoxicillin [Amoxicillin] Allergy Severe Rash/Hives Verified 11/18/17 09:35 citalopram hydrobromide Allergy Severe Rash/Hives Verified 11/18/17 09:35 [From Celexa] adhesive Allergy Rash/Hives Verified 11/18/17 09:35 adhesive tape Allergy Rash/Hives Verified 11/18/17 09:35 pioglitazone HCl [From Actos] Allergy Rash/Hives/Abdominal Verified 11/18/17 09 :35 pain/Blood sugar issues Review of Systems ROS Statement: Those systems with pertinent positive or pertinent negative responses have been documented in the HPI. ROS Other: All systems not noted in ROS Statement are negative. Past Medical History Past Medical History: Asthma, Diabetes Mellitus Additional Past Medical History / Comment(s): polycystic ovaries, TACHYCARDIA History of Any Multi-Drug Resistant Organisms: None Reported Past Surgical History: Adenoidectomy, Cholecystectomy, Tonsillectomy Additional Past Surgical History / Comment(s): CYST REMOVAL FROM SINUS CAVITY, NOSE RECONSTRUCTION Past Anesthesia/Blood Transfusion Reactions: No Reported Reaction Past Psychological History: Anxiety, Depression Smoking Status: Never smoker Past Alcohol Use History: Occasional Past Drug Use History: None Reported - Past Family History Mother Family Medical History: Diabetes Mellitus, Thyroid Disorder Additional Family Medical History / Comment(s): GESTATIONAL DIABETIC, BRAIN BLEED, DEPRESSION, ANXIETY Sister(s) Family Medical History: Thyroid Disorder Additional Family Medical History / Comment(s): DEPRESSION, ANXIETY General Exam - General Exam Comments Initial Comments: Well-appearing 22-year-old female. Alert and oriented. No significant distress. Limitations: no limitations General appearance: alert, in no apparent distress Head exam: Present: atraumatic, normocephalic, normal inspection Eye exam: Present: normal appearance, PERRL, EOMI. Absent: scleral icterus, conjunctival injection, periorbital swelling ENT exam: Present: normal exam, normal oropharynx, mucous membranes moist Neck exam: Present: normal inspection. Absent: tenderness, meningismus, lymphadenopathy Respiratory exam: Present: wheezes. Absent: normal lung sounds bilaterally, respiratory distress, rales, rhonchi, stridor Cardiovascular Exam: Present: regular rate, normal rhythm, normal heart sounds. Absent: systolic murmur, diastolic murmur, rubs, gallop, clicks GI/Abdominal exam: Present: soft, normal bowel sounds. Absent: distended, tenderness, guarding, rebound, rigid Extremities exam: Present: normal inspection, full ROM, normal capillary refill. Absent: tenderness, pedal edema, joint swelling, calf tenderness Back exam: Present: normal inspection Neurological exam: Present: alert, oriented X3, CN II-XII intact Psychiatric exam: Present: normal affect, normal mood Skin exam: Present: warm, dry, intact, normal color. Absent: rash Course Vital Signs 11/18/17 11/18/17 11/18/17 07:41 08:42 08:47 Temperature 97.9 F Pulse Rate 103 H 90 86 Respiratory 20 Rate Blood Pressure 141/91 O2 Sat by Pulse 99 Oximetry 11/18/17 11/18/17 09:02 10:18 Temperature Pulse Rate 98 89 Respiratory 18 18 Rate Blood Pressure 164/75 164/79 O2 Sat by Pulse 98 99 Oximetry Medical Decision Making - Medical Decision Making 22-year-old female presents today with high blood sugar and the cough congestion shortness of breath. EKG was reviewed and normal. Chest the presenting to acute process. Blood sugar was 370. After liter fluids and antiemetics for her dose of steroids and IV is 317. 5 units of insulin. Acetone negative. Patient will be treated Carlos bronchitis short course of steroid and Sumycin. And inhaler. Discussed appropriate follow-up. All questions answered and return parameters were discussed. - Lab Data Result diagrams: 11/18/17 08:59 11/18/17 08:59 Lab Results 11/18/17 11/18/17 11/18/17 Range/Units 08:30 08:30 08:59 WBC 8.9 (3.8-10.6) k/uL RBC 5.25 (3.80-5.40) m/uL Hgb 15.0 (11.4-16.0) gm/dL Hct 42.1 (34.0-46.0) % MCV 80.3 (80.0-100.0) fL MCH 28.6 (25.0-35.0) pg MCHC 35.6 (31.0-37.0) g/dL RDW 12.6 (11.5-15.5) % Plt Count 255 (150-450) k/uL Neutrophils % 70 % Lymphocytes % 22 % Monocytes % 5 % Eosinophils % 1 % Basophils % 0 % Neutrophils # 6.2 (1.3-7.7) k/uL Lymphocytes # 2.0 (1.0-4.8) k/uL Monocytes # 0.4 (0-1.0) k/uL Eosinophils # 0.1 (0-0.7) k/uL Basophils # 0.0 (0-0.2) k/uL PT (9.0-12.0) sec INR (<1.2) APTT (22.0-30.0) sec Sodium (137-145) mmol/L Potassium (3.5-5.1) mmol/L Chloride (98-107) mmol/L Carbon Dioxide (22-30) mmol/L Anion Gap mmol/L BUN (7-17) mg/dL Creatinine (0.52-1.04) mg/dL Est GFR (CKD-EPI)AfAm (>60 ml/min/1.73 sqM) Est GFR (CKD-EPI)NonAf (>60 ml/min/1.73 sqM) Glucose (74-99) mg/dL POC Glucose (mg/dL) (75-99) mg/dL POC Glu Molecular Biology Scientist ID Calcium (8.4-10.2) mg/dL Total Bilirubin (0.2-1.3) mg/dL AST (14-36) U/L ALT (9-52) U/L Alkaline Phosphatase (38-126) U/L Total Protein (6.3-8.2) g/dL Albumin (3.5-5.0) g/dL Urine Color Light Yellow Urine Appearance Cloudy H (Clear) Urine pH 5.5 (5.0-8.0) Ur Specific [place] 1.026 (1.001-1.035) Urine Protein Negative (Negative) Urine Glucose (UA) 4+ H (Negative) Urine Ketones 1+ H (Negative) Urine Blood Negative (Negative) Urine Nitrite Negative (Negative) Urine Bilirubin Negative (Negative) Urine Urobilinogen <2.0 (<2.0) mg/dL Ur Leukocyte Esterase Small H (Negative) Urine RBC 3 (0-5) /hpf Urine WBC 15 H (0-5) /hpf Ur Squamous Epith Cells 21 H (0-4) /hpf Urine Bacteria Moderate H (None) /hpf Urine Mucus Rare H (None) /hpf Urine HCG, Qual Not Detected (Not Detectd) Acetone, Qual (Negative) 11/18/17 11/18/17 11/18/17 Range/Units 08:59 08:59 10:36 WBC (3.8-10.6) k/uL RBC (3.80-5.40) m/uL Hgb (11.4-16.0) gm/dL Hct (34.0-46.0) % MCV (80.0-100.0) fL MCH (25.0-35.0) pg MCHC (31.0-37.0) g/dL RDW (11.5-15.5) % Plt Count (150-450) k/uL Neutrophils % % Lymphocytes % % Monocytes % % Eosinophils % % Basophils % % Neutrophils # (1.3-7.7) k/uL Lymphocytes # (1.0-4.8) k/uL Monocytes # (0-1.0) k/uL Eosinophils # (0-0.7) k/uL Basophils # (0-0.2) k/uL PT 9.6 (9.0-12.0) sec INR 1.0 (<1.2) APTT 32.2 H (22.0-30.0) sec Sodium 136 L (137-145) mmol/L Potassium 4.4 (3.5-5.1) mmol/L Chloride 102 (98-107) mmol/L Carbon Dioxide 23 (22-30) mmol/L Anion Gap 11 mmol/L BUN 9 (7-17) mg/dL Creatinine 0.51 L (0.52-1.04) mg/dL Est GFR (CKD-EPI)AfAm >90 (>60 ml/min/1.73 sqM) Est GFR (CKD-EPI)NonAf >90 (>60 ml/min/1.73 sqM) Glucose 348 H (74-99) mg/dL POC Glucose (mg/dL) 317 H (75-99) mg/dL POC Glu Molecular Biology Scientist ID Sharp, Brenda Calcium 9.2 (8.4-10.2) mg/dL Total Bilirubin 1.7 H (0.2-1.3) mg/dL AST 68 H (14-36) U/L ALT 111 H (9-52) U/L Alkaline Phosphatase 147 H (38-126) U/L Total Protein 6.7 (6.3-8.2) g/dL Albumin 4.1 (3.5-5.0) g/dL Urine Color Urine Appearance (Clear) Urine pH (5.0-8.0) Ur Specific [place] (1.001-1.035) Urine Protein (Negative) Urine Glucose (UA) (Negative) Urine Ketones (Negative) Urine Blood (Negative) Urine Nitrite (Negative) Urine Bilirubin (Negative) Urine Urobilinogen (<2.0) mg/dL Ur Leukocyte Esterase (Negative) Urine RBC (0-5) /hpf Urine WBC (0-5) /hpf Ur Squamous Epith Cells (0-4) /hpf Urine Bacteria (None) /hpf Urine Mucus (None) /hpf Urine HCG, Qual (Not Detectd) Acetone, Qual Negative (Negative) 11/18/17 09:17 EKG shows sinus rhythm normal EKG. Ventricular rate 96 bpm. Verbal is 136. QRS duration 80 ms. QT QTC 372/444 seconds. No evidence of ST elevation or T-wave inversion. - Radiology Data Radiology results: report reviewed No acute cardio primary process. No significant change from prior. Disposition Clinical Impression: Bronchitis Disposition: HOME SELF-CARE Condition: Good Instructions: Acute Bronchitis (ED) Additional Instructions: and advised to follow-up with primary care provider. Take medication as prescribed. Use her insulin sliding scale instructed as well. Return to emergency department if any alarming signs or symptoms occur. Prescriptions: Albuterol Inhaler [Ventolin Hfa Inhaler] 1 - 2 puff INHALATION RT-Q6H PRN #1 inhaler PRN Reason: Shortness Of Breath Azithromycin 250 mg PO DAILY #6 tablet methylPREDNISolone Dose Pack [Medrol Dose Pack] 4 mg PO DIRECTED #21 package Is patient prescribed a controlled substance at d/c from ED?: No When asked, does pt state using other controlled substances?: No If prescribed controlled substance>3 days was MAPS reviewed?: No If opioid is for acute pain is fill amount 7 days or less?: No If Rx opioid, was Start Talking consent form obtained?: No Referrals: Gemma Jacob MD [Primary Care Provider] - 1-2 days Time of Disposition: 10:47
[2017-11-18 09:00] LABS: Appearance,Urine Cloudy (Clear); Bacteria,Urine Moderate /hpf; Bilirubin,Urine Negative (Negative); Blood,Urine Negative (Negative); Color,Urine Light Yellow; Glucose,Urine (UA) 4+ (Negative); Ketones,Urine 1+ (Negative); Leukocyte Esterase,Urine Small (Negative); Mucus,Urine Rare /hpf; Nitrite,Urine Negative (Negative); PH, Urine 5.5 (5.0-8.0); Protein,Urine Negative (Negative); RBC,Urine 3 /hpf (0-5); Specific Gravity,Urine 1.026 (1.001-1.035); Squamous Epithelial Cell,Urine 21 /hpf (0-4); Urobilinogen,Urine <2.0 mg/dL (<2.0); WBC,Urine 15 /hpf (0-5)
[2017-11-18 09:03] VITALS: RESP 18
--- NOTE | 2017-11-18 09:18 | XR ---
EXAMINATION TYPE: XR chest 2V DATE OF EXAM: 11/18/2017 COMPARISON: Chest x-ray July 03, 2017. HISTORY: Discomfort and difficulty breathing. TECHNIQUE: Frontal and lateral views of the chest are obtained. FINDINGS: Somewhat low lung volumes remain present. There is no focal air space opacity, pleural effu raghavendra, or pneumothorax seen. The cardiac silhouette size is within normal limits. The osseous struc tures are intact. Cholecystectomy clips are redemonstrated on lateral view. IMPRESSION: No acute cardiopulmonary process. No significant change from prior.
[2017-11-18 09:30] LABS: Basophils % (A) 0 %; Eosinophils # (A) 0.1 k/uL (0-0.7); Eosinophils % (A) 1 %; HCT 42.1 % (34.0-46.0); Lymphocytes % (A) 22 %; MCH 28.6 pg (25.0-35.0); MCHC 35.6 g/dL (31.0-37.0); MCV 80.3 fL (80.0-100.0); Mean Platelet Volume 7.3; Monocytes # (A) 0.4 k/uL (0-1.0); Monocytes % (A) 5 %; Neutrophils # (A) 6.2 k/uL (1.3-7.7); Neutrophils % (A) 70 %; Platelet Count 255 k/uL (150-450); RBC 5.25 m/uL (3.80-5.40); RDW 12.6 % (11.5-15.5); WBC 8.9 k/uL (3.8-10.6)
[2017-11-18 09:38] LABS: Partial Thromboplastin Time 32.2 sec (22.0-30.0); Prothrombin Time 9.6 sec (9.0-12.0)
[2017-11-18 09:52] LABS: ALT 111 U/L (9-52); AST 68 U/L (14-36); Albumin 4.1 g/dL (3.5-5.0); Alkaline Phosphatase 147 U/L (38-126); Anion Gap 11 mmol/L; Blood Urea Nitrogen 9 mg/dL (7-17); Calcium 9.2 mg/dL (8.4-10.2); Carbon Dioxide 23 mmol/L (22-30); Chloride 102 mmol/L (98-107); Glucose 348 mg/dL (74-99); Potassium 4.4 mmol/L (3.5-5.1); Sodium 136 mmol/L (137-145); Total Bilirubin 1.7 mg/dL (0.2-1.3); Total Protein 6.7 g/dL (6.3-8.2)
[2017-11-18 10:38] LABS: Glucose,Whole Blood 317 mg/dL (75-99)
[2017-11-18] MEDS ORDERED: INSULIN REGULAR 100 UNIT/ML VIAL IV ONE (10:41)
[2017-11-18 11:02] VITALS: BP 132/80; PULSE 97
[2017-11-18 17:33] LABS: Hemoglobin A1C 10.7 % (4.0-6.0)
== END 2017-11-18 11:02 | disposition home or self-care (01) ==
LOC: EC 07:36
DX: J40 Bronchitis, not specified as acute or chronic (principal); E11.9 Type 2 diabetes mellitus without complications; Z88.0 Allergy status to penicillin; Z88.8 Allergy status to other drugs, medicaments and biological substances; Z91.048 Other nonmedicinal substance allergy status; Z79.4 Long term (current) use of insulin; Z79.84 Long term (current) use of oral hypoglycemic drugs
CPT/HCPCS: 99285; 96374; 96361; 36415; 94640; 80053; 82009; 85025; 85610; 85730; 81001; 81025; 83036; 71046; J2930

== ENCOUNTER → 2017-11-25 | Outpatient (CLI) | payer OTHER, BC ==
[2017-11-25 17:27] LABS: Glucose 294 mg/dL (74-99)
== END | disposition home or self-care (01) ==
LOC: LABWHC1 16:18
PROVIDERS: ATTEND Internal Medicine Endocrinology, Diabetes & Metabolism
DX: E11.65 Type 2 diabetes mellitus with hyperglycemia (principal)
CPT/HCPCS: 36415; 82533; 82947; 84681

== ENCOUNTER 2017-12-11 15:01 | Emergency (ER) | payer OTHER, BC ==
[2017-12-11 15:27] VITALS: RESP 18; TEMP 98.2
[2017-12-11] MEDS ORDERED: SODIUM CHLORIDE 0.9% 1,000 ML IV STA (15:35)
[2017-12-11] MEDS ORDERED: ONDANSETRON 4 MG/2 ML VIAL IVP STA (15:35)
[2017-12-11] MEDS ORDERED: FAMOTIDINE 20 MG/2 ML VIAL IV STA (15:36)
--- NOTE | 2017-12-11 15:39 | ED ---
General Adult HPI - General Chief complaint: Nausea/Vomiting/Diarrhea Stated complaint: vomiting/lightheaded Time Seen by Provider: 12/11/17 15:30 Source: patient, RN notes reviewed Mode of arrival: ambulatory Limitations: no limitations - History of Present Illness Initial comments: Patient is a pleasant 22-year-old female presenting to the emergency department with nausea vomiting. Onset of symptoms was around a week ago. When he resolved and patient felt nauseous for several days. Patient started vomiting again yesterday. Patient has vomited multiple times. Patient still feels nauseous. No abdominal pain. Patient has not missed a period. No constipation or diarrhea. No fevers. This is not a chronic problem. She does have some associated lightheadedness. - Related Data Home Medications Medication Instructions Recorded Confirmed metFORMIN HCL 1,000 mg PO BID 09/19/15 12/11/17 Insulin Regular [HumuLIN R] See Protocol SQ ACHS 04/22/16 12/11/17 ALPRAZolam [Xanax] 0.5 mg PO DAILY PRN 11/18/17 12/11/17 Insulin Glargine,Hum.rec.anlog 60 units SQ HS 11/18/17 12/11/17 [Toujeo Solostar] Insulin Aspart [NovoLOG See Protocol SQ ACHS 12/11/17 12/11/17 (formulary)] Liraglutide [Victoza 2-Maco] 0.6 mg SQ DAILY 12/11/17 12/11/17 Loratadine [Claritin] 10 mg PO DAILY PRN 12/11/17 12/11/17 glipiZIDE [Glucotrol] 10 mg PO BID 12/11/17 12/11/17 Previous Rx's Medication Instructions Recorded Albuterol Inhaler [Ventolin Hfa 1 - 2 puff INHALATION RT-Q6H PRN 11/18/17 Inhaler] #1 inhaler Ondansetron Odt [Zofran Odt] 4 mg PO Q8HR PRN #10 tab 12/11/17 Allergies Allergy/AdvReac Type Severity Reaction Status Date / Time amoxicillin [Amoxicillin] Allergy Severe Rash/Hives Verified 12/11/17 16:11 citalopram hydrobromide Allergy Severe Rash/Hives Verified 12/11/17 16:11 [From Celexa] adhesive Allergy Rash/Hives Verified 12/11/17 16:11 adhesive tape Allergy Rash/Hives Verified 12/11/17 16:11 pioglitazone HCl [From Actos] Allergy Rash/Hives/Abdominal Verified 12/11/17 16 :11 pain/Blood sugar issues Review of Systems ROS Statement: Those systems with pertinent positive or pertinent negative responses have been documented in the HPI. ROS Other: All systems not noted in ROS Statement are negative. Constitutional: Denies: fever Eyes: Denies: eye pain ENT: Denies: ear pain Respiratory: Denies: cough Cardiovascular: Denies: chest pain Endocrine: Denies: fatigue Gastrointestinal: Reports: nausea, vomiting. Denies: abdominal pain, diarrhea, constipation Genitourinary: Denies: dysuria Musculoskeletal: Denies: back pain Skin: Denies: rash Neurological: Denies: weakness Past Medical History Past Medical History: Asthma, Diabetes Mellitus Additional Past Medical History / Comment(s): polycystic ovaries, TACHYCARDIA History of Any Multi-Drug Resistant Organisms: None Reported Past Surgical History: Adenoidectomy, Cholecystectomy, Tonsillectomy Additional Past Surgical History / Comment(s): CYST REMOVAL FROM SINUS CAVITY, NOSE RECONSTRUCTION Past Anesthesia/Blood Transfusion Reactions: No Reported Reaction Past Psychological History: Anxiety, Depression Smoking Status: Never smoker Past Alcohol Use History: Occasional Past Drug Use History: None Reported - Past Family History Mother Family Medical History: Diabetes Mellitus, Thyroid Disorder Additional Family Medical History / Comment(s): GESTATIONAL DIABETIC, BRAIN BLEED, DEPRESSION, ANXIETY Sister(s) Family Medical History: Thyroid Disorder Additional Family Medical History / Comment(s): DEPRESSION, ANXIETY General Exam Limitations: no limitations General appearance: alert, in no apparent distress Head exam: Present: atraumatic Eye exam: Present: normal appearance, PERRL ENT exam: Present: normal oropharynx Neck exam: Present: normal inspection Respiratory exam: Present: normal lung sounds bilaterally Cardiovascular Exam: Present: regular rate, normal rhythm GI/Abdominal exam: Present: soft, normal bowel sounds. Absent: distended, tenderness, guarding, rigid Extremities exam: Present: normal inspection Neurological exam: Present: alert Psychiatric exam: Present: normal affect, normal mood Skin exam: Present: normal color Course Vital Signs 12/11/17 15:26 Temperature 98.2 F Pulse Rate 109 H Respiratory 18 Rate Blood Pressure 118/81 O2 Sat by Pulse 99 Oximetry Medical Decision Making - Medical Decision Making Patient reevaluated and is feeling better. Patient updated on results including mild elevation of liver enzymes. Previous liver enzymes reviewed. Patient notified of need for follow-up with primary care physician regarding this as well as elevation of blood sugar. Acute hepatitis panel ordered and patient is advised follow-up with her doctor with this. - Lab Data Result diagrams: 12/11/17 16:00 12/11/17 16:00 Lab Results 12/11/17 12/11/17 12/11/17 Range/Units 16:00 16:00 16:00 WBC 6.3 (3.8-10.6) k/uL RBC 5.35 (3.80-5.40) m/uL Hgb 15.6 (11.4-16.0) gm/dL Hct 44.0 (34.0-46.0) % MCV 82.2 (80.0-100.0) fL MCH 29.2 (25.0-35.0) pg MCHC 35.5 (31.0-37.0) g/dL RDW 12.9 (11.5-15.5) % Plt Count 271 (150-450) k/uL Neutrophils % 65 % Lymphocytes % 26 % Monocytes % 4 % Eosinophils % 2 % Basophils % 0 % Neutrophils # 4.1 (1.3-7.7) k/uL Lymphocytes # 1.7 (1.0-4.8) k/uL Monocytes # 0.3 (0-1.0) k/uL Eosinophils # 0.1 (0-0.7) k/uL Basophils # 0.0 (0-0.2) k/uL Sodium 137 (137-145) mmol/L Potassium 4.9 (3.5-5.1) mmol/L Chloride 104 (98-107) mmol/L Carbon Dioxide 22 (22-30) mmol/L Anion Gap 11 mmol/L BUN 8 (7-17) mg/dL Creatinine 0.50 L (0.52-1.04) mg/dL Est GFR (CKD-EPI)AfAm >90 (>60 ml/min/1.73 sqM) Est GFR (CKD-EPI)NonAf >90 (>60 ml/min/1.73 sqM) Glucose 261 H (74-99) mg/dL Calcium 9.4 (8.4-10.2) mg/dL Total Bilirubin 3.0 H (0.2-1.3) mg/dL AST 84 H (14-36) U/L ALT 112 H (9-52) U/L Alkaline Phosphatase 88 (38-126) U/L Total Protein 7.5 (6.3-8.2) g/dL Albumin 4.5 (3.5-5.0) g/dL Amylase 45 (30-110) U/L Lipase 73 (23-300) U/L Urine Color Yellow Urine Appearance Cloudy H (Clear) Urine pH 5.5 (5.0-8.0) Ur Specific [place] 1.016 (1.001-1.035) Urine Protein Trace H (Negative) Urine Glucose (UA) 4+ H (Negative) Urine Ketones Negative (Negative) Urine Blood Negative (Negative) Urine Nitrite Negative (Negative) Urine Bilirubin Negative (Negative) Urine Urobilinogen <2.0 (<2.0) mg/dL Ur Leukocyte Esterase Small H (Negative) Urine RBC 5 (0-5) /hpf Urine WBC 7 H (0-5) /hpf Ur Squamous Epith Cells 16 H (0-4) /hpf Urine Bacteria Few H (None) /hpf Urine Mucus Many H (None) /hpf Urine HCG, Qual (Not Detectd) 12/11/17 Range/Units 16:00 WBC (3.8-10.6) k/uL RBC (3.80-5.40) m/uL Hgb (11.4-16.0) gm/dL Hct (34.0-46.0) % MCV (80.0-100.0) fL MCH (25.0-35.0) pg MCHC (31.0-37.0) g/dL RDW (11.5-15.5) % Plt Count (150-450) k/uL Neutrophils % % Lymphocytes % % Monocytes % % Eosinophils % % Basophils % % Neutrophils # (1.3-7.7) k/uL Lymphocytes # (1.0-4.8) k/uL Monocytes # (0-1.0) k/uL Eosinophils # (0-0.7) k/uL Basophils # (0-0.2) k/uL Sodium (137-145) mmol/L Potassium (3.5-5.1) mmol/L Chloride (98-107) mmol/L Carbon Dioxide (22-30) mmol/L Anion Gap mmol/L BUN (7-17) mg/dL Creatinine (0.52-1.04) mg/dL Est GFR (CKD-EPI)AfAm (>60 ml/min/1.73 sqM) Est GFR (CKD-EPI)NonAf (>60 ml/min/1.73 sqM) Glucose (74-99) mg/dL Calcium (8.4-10.2) mg/dL Total Bilirubin (0.2-1.3) mg/dL AST (14-36) U/L ALT (9-52) U/L Alkaline Phosphatase (38-126) U/L Total Protein (6.3-8.2) g/dL Albumin (3.5-5.0) g/dL Amylase (30-110) U/L Lipase (23-300) U/L Urine Color Urine Appearance (Clear) Urine pH (5.0-8.0) Ur Specific [place] (1.001-1.035) Urine Protein (Negative) Urine Glucose (UA) (Negative) Urine Ketones (Negative) Urine Blood (Negative) Urine Nitrite (Negative) Urine Bilirubin (Negative) Urine Urobilinogen (<2.0) mg/dL Ur Leukocyte Esterase (Negative) Urine RBC (0-5) /hpf Urine WBC (0-5) /hpf Ur Squamous Epith Cells (0-4) /hpf Urine Bacteria (None) /hpf Urine Mucus (None) /hpf Urine HCG, Qual Not Detected (Not Detectd) Disposition Clinical Impression: Acute vomiting Disposition: HOME SELF-CARE Condition: Stable Instructions: Acute Nausea and Vomiting (ED) Additional Instructions: Please follow-up with primary care physician in the next day or 2 for recheck. Have primary care physician review liver tests as well has hepatitis panel. Return for uncontrolled vomiting, abdominal pain, fevers, worsening or changing symptoms or other concerns Prescriptions: Ondansetron Odt [Zofran Odt] 4 mg PO Q8HR PRN #10 tab PRN Reason: Nausea Is patient prescribed a controlled substance at d/c from ED?: No Referrals: Gemma Jacob MD [Primary Care Provider] - 1-2 days Time of Disposition: 16:52
[2017-12-11 16:13] LABS: Basophils % (A) 0 %; Eosinophils # (A) 0.1 k/uL (0-0.7); Eosinophils % (A) 2 %; HGB 15.6 gm/dL (11.4-16.0); Lymphocytes # (A) 1.7 k/uL (1.0-4.8); Lymphocytes % (A) 26 %; MCH 29.2 pg (25.0-35.0); MCHC 35.5 g/dL (31.0-37.0); MCV 82.2 fL (80.0-100.0); Mean Platelet Volume 7.1; Monocytes # (A) 0.3 k/uL (0-1.0); Monocytes % (A) 4 %; Neutrophils # (A) 4.1 k/uL (1.3-7.7); Neutrophils % (A) 65 %; Platelet Count 271 k/uL (150-450); RBC 5.35 m/uL (3.80-5.40); RDW 12.9 % (11.5-15.5); WBC 6.3 k/uL (3.8-10.6)
[2017-12-11 16:22] LABS: ALT 112 U/L (9-52); AST 84 U/L (14-36); Albumin 4.5 g/dL (3.5-5.0); Alkaline Phosphatase 88 U/L (38-126); Amylase 45 U/L (30-110); Anion Gap 11 mmol/L; Blood Urea Nitrogen 8 mg/dL (7-17); Calcium 9.4 mg/dL (8.4-10.2); Carbon Dioxide 22 mmol/L (22-30); Chloride 104 mmol/L (98-107); Glucose 261 mg/dL (74-99); Lipase 73 U/L (23-300); Potassium 4.9 mmol/L (3.5-5.1); Sodium 137 mmol/L (137-145); Total Protein 7.5 g/dL (6.3-8.2)
[2017-12-11 16:45] LABS: Appearance,Urine Cloudy (Clear); Bacteria,Urine Few /hpf; Bilirubin,Urine Negative (Negative); Blood,Urine Negative (Negative); Color,Urine Yellow; Glucose,Urine (UA) 4+ (Negative); Ketones,Urine Negative (Negative); Leukocyte Esterase,Urine Small (Negative); Mucus,Urine Many /hpf; Nitrite,Urine Negative (Negative); PH, Urine 5.5 (5.0-8.0); Protein,Urine Trace (Negative); RBC,Urine 5 /hpf (0-5); Specific Gravity,Urine 1.016 (1.001-1.035); Squamous Epithelial Cell,Urine 16 /hpf (0-4); Urobilinogen,Urine <2.0 mg/dL (<2.0); WBC,Urine 7 /hpf (0-5)
[2017-12-11 17:45] VITALS: BP 133/78; PULSE 88
[2017-12-12 14:28] LABS: Hepatitis B Core IgM Non-Reactive (Non-Reactive)
== END 2017-12-11 17:40 | disposition home or self-care (01) ==
LOC: EC 15:01
DX: R11.2 Nausea with vomiting, unspecified (principal); R42 Dizziness and giddiness; R94.5 Abnormal results of liver function studies; E11.9 Type 2 diabetes mellitus without complications; F41.9 Anxiety disorder, unspecified; Z79.4 Long term (current) use of insulin; Z88.0 Allergy status to penicillin; Z88.8 Allergy status to other drugs, medicaments and biological substances; Z91.048 Other nonmedicinal substance allergy status
CPT/HCPCS: 36415; 80053; 82150; 83690; 85025; 81001; 81025; 99284; 96374; 96375; 96361 ×2; J2405; 80074

== ENCOUNTER 2018-05-02 09:26 | Emergency (ER) | payer OTHER, BC ==
[2018-05-02 09:31] VITALS: RESP 18
[2018-05-02 09:43] LABS: Glucose,Whole Blood 145 mg/dL (75-99)
[2018-05-02] MEDS ORDERED: SODIUM CHLORIDE 0.9% 2,000 ML IV STA (10:01)
--- NOTE | 2018-05-02 10:20 | ED ---
Recheck HPI - General Chief Complaint: Recheck/Abnormal Lab/Rx Stated Complaint: BLOOD SUGAR PROBLEM Time Seen by Provider: 05/02/18 09:35 Source: patient, RN notes reviewed Mode of arrival: ambulatory Limitations: no limitations - History of Present Illness Initial Comments: 22-year-old female sent emergency Department chief complaint of but sugar issues. Patient states she has had multiple recent medication changes. Patient states currently she is on metformin thousand milligrams twice a day and U500 insulin on her pump. Patient states that her blood sugar has been up in the 2-300 down to 90. Patient states she just feels off. Patient's concern as her heart rate has been elevated. Patient had some nausea no vomiting no recent illnesses denies any dysuria or hematuria. Denies any chest pain or shortness breath. - Related Data Home Medications Medication Instructions Recorded Confirmed metFORMIN HCL 1,000 mg PO BID 09/19/15 12/11/17 Insulin Regular [HumuLIN R] See Protocol [facility]Q [facility] 04/22/16 12/11/17 ALPRAZolam [Xanax] 0.5 mg PO DAILY PRN 11/18/17 12/11/17 Insulin Glargine,Hum.rec.anlog 60 units SQ HS 11/18/17 12/11/17 [Toujeo Solostar] Insulin Aspart [NovoLOG See Protocol SQ [facility] 12/11/17 12/11/17 (formulary)] Liraglutide [Victoza 2-Maco] 0.6 mg SQ DAILY 12/11/17 12/11/17 Loratadine [Claritin] 10 mg PO DAILY PRN 12/11/17 12/11/17 glipiZIDE [Glucotrol] 10 mg PO BID 12/11/17 12/11/17 Previous Rx's Medication Instructions Recorded Albuterol Inhaler [Ventolin Hfa 1 - 2 puff INHALATION RT-Q6H PRN 11/18/17 Inhaler] #1 inhaler Ondansetron Odt [Zofran Odt] 4 mg PO Q8HR PRN #10 tab 12/11/17 Allergies Allergy/AdvReac Type Severity Reaction Status Date / Time amoxicillin [Amoxicillin] Allergy Severe Rash/Hives Verified 05/02/18 09:28 citalopram hydrobromide Allergy Severe Rash/Hives Verified 05/02/18 09:28 [From Celexa] adhesive Allergy Rash/Hives Verified 05/02/18 09:28 adhesive tape Allergy Rash/Hives Verified 05/02/18 09:28 pioglitazone HCl [From Actos] Allergy Rash/Hives/Abdominal Verified 05/02/18 09 :28 pain/Blood sugar issues Review of Systems ROS Statement: Those systems with pertinent positive or pertinent negative responses have been documented in the HPI. ROS Other: All systems not noted in ROS Statement are negative. Past Medical History Past Medical History: Asthma, Diabetes Mellitus Additional Past Medical History / Comment(s): polycystic ovaries, TACHYCARDIA History of Any Multi-Drug Resistant Organisms: None Reported Past Surgical History: Adenoidectomy, Cholecystectomy, Tonsillectomy Additional Past Surgical History / Comment(s): CYST REMOVAL FROM SINUS CAVITY, NOSE RECONSTRUCTION Past Anesthesia/Blood Transfusion Reactions: No Reported Reaction Past Psychological History: Anxiety, Depression Smoking Status: Never smoker Past Alcohol Use History: Occasional Past Drug Use History: Marijuana - Past Family History Mother Family Medical History: Diabetes Mellitus, Thyroid Disorder Additional Family Medical History / Comment(s): GESTATIONAL DIABETIC, BRAIN BLEED, DEPRESSION, ANXIETY Sister(s) Family Medical History: Thyroid Disorder Additional Family Medical History / Comment(s): DEPRESSION, ANXIETY General Exam Limitations: no limitations General appearance: alert, in no apparent distress Head exam: Present: atraumatic, normocephalic, normal inspection Eye exam: Present: normal appearance, PERRL, EOMI. Absent: scleral icterus, conjunctival injection, periorbital swelling ENT exam: Present: normal exam, normal oropharynx, mucous membranes moist Neck exam: Present: normal inspection, full ROM. Absent: tenderness, meningismus, lymphadenopathy Respiratory exam: Present: normal lung sounds bilaterally. Absent: respiratory distress, wheezes, rales, rhonchi, stridor Cardiovascular Exam: Present: normal rhythm, tachycardia, normal heart sounds. Absent: systolic murmur, diastolic murmur, rubs, gallop, clicks GI/Abdominal exam: Present: soft, normal bowel sounds. Absent: distended, tenderness, guarding, rebound, rigid Back exam: Absent: CVA tenderness (R), CVA tenderness (L) Skin exam: Present: warm, dry, intact, normal color. Absent: rash Course Vital Signs 05/02/18 05/02/18 09:28 12:04 Temperature 98.2 F 97.2 F L Pulse Rate 129 H 100 Respiratory 18 18 Rate Blood Pressure 149/93 113/55 O2 Sat by Pulse 99 99 Oximetry Medical Decision Making - Medical Decision Making 22-year-old female presented for labile blood sugar.Blood sugar is within normal limits at this time. Patient feels improved after IV fluids heart rate has improved. 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 Return parameters were discussed. - Lab Data Result diagrams: 05/02/18 10:30 05/02/18 10:30 Lab Results 05/02/18 05/02/18 05/02/18 Range/Units 09:33 10:30 10:30 WBC 8.5 (3.8-10.6) k/uL RBC 5.07 (3.80-5.40) m/uL Hgb 14.6 (11.4-16.0) gm/dL Hct 41.1 (34.0-46.0) % MCV 81.1 (80.0-100.0) fL MCH 28.7 (25.0-35.0) pg MCHC 35.4 (31.0-37.0) g/dL RDW 12.8 (11.5-15.5) % Plt Count 286 (150-450) k/uL Neutrophils % 70 % Lymphocytes % 20 % Monocytes % 7 % Eosinophils % 1 % Basophils % 1 % Neutrophils # 6.0 (1.3-7.7) k/uL Lymphocytes # 1.7 (1.0-4.8) k/uL Monocytes # 0.6 (0-1.0) k/uL Eosinophils # 0.1 (0-0.7) k/uL Basophils # 0.0 (0-0.2) k/uL Sodium 140 (137-145) mmol/L Potassium 4.1 (3.5-5.1) mmol/L Chloride 107 (98-107) mmol/L Carbon Dioxide 23 (22-30) mmol/L Anion Gap 10 mmol/L BUN 10 (7-17) mg/dL Creatinine 0.50 L (0.52-1.04) mg/dL Est GFR (CKD-EPI)AfAm >90 (>60 ml/min/1.73 sqM) Est GFR (CKD-EPI)NonAf >90 (>60 ml/min/1.73 sqM) Glucose 132 H (74-99) mg/dL POC Glucose (mg/dL) 145 H (75-99) mg/dL POC Glu Custodial Services Manager ID Denisha Valdez Calcium 9.4 (8.4-10.2) mg/dL Total Bilirubin 1.2 (0.2-1.3) mg/dL AST 68 H (14-36) U/L ALT 96 H (9-52) U/L Alkaline Phosphatase 113 (38-126) U/L Total Protein 7.1 (6.3-8.2) g/dL Albumin 4.0 (3.5-5.0) g/dL Lipase 40 (23-300) U/L Urine Color Urine Appearance (Clear) Urine pH (5.0-8.0) Ur Specific Boron (1.001-1.035) Urine Protein (Negative) Urine Glucose (UA) (Negative) Urine Ketones (Negative) Urine Blood (Negative) Urine Nitrite (Negative) Urine Bilirubin (Negative) Urine Urobilinogen (<2.0) mg/dL Ur Leukocyte Esterase (Negative) Urine RBC (0-5) /hpf Urine WBC (0-5) /hpf Ur Squamous Epith Cells (0-4) /hpf Urine Bacteria (None) /hpf Urine Mucus (None) /hpf Urine Sperm (None) /hpf Urine HCG, Qual (Not Detectd) 05/02/18 05/02/18 Range/Units 10:30 10:30 WBC (3.8-10.6) k/uL RBC (3.80-5.40) m/uL Hgb (11.4-16.0) gm/dL Hct (34.0-46.0) % MCV (80.0-100.0) fL MCH (25.0-35.0) pg MCHC (31.0-37.0) g/dL RDW (11.5-15.5) % Plt Count (150-450) k/uL Neutrophils % % Lymphocytes % % Monocytes % % Eosinophils % % Basophils % % Neutrophils # (1.3-7.7) k/uL Lymphocytes # (1.0-4.8) k/uL Monocytes # (0-1.0) k/uL Eosinophils # (0-0.7) k/uL Basophils # (0-0.2) k/uL Sodium (137-145) mmol/L Potassium (3.5-5.1) mmol/L Chloride (98-107) mmol/L Carbon Dioxide (22-30) mmol/L Anion Gap mmol/L BUN (7-17) mg/dL Creatinine (0.52-1.04) mg/dL Est GFR (CKD-EPI)AfAm (>60 ml/min/1.73 sqM) Est GFR (CKD-EPI)NonAf (>60 ml/min/1.73 sqM) Glucose (74-99) mg/dL POC Glucose (mg/dL) (75-99) mg/dL POC Glu Custodial Services Manager ID Calcium (8.4-10.2) mg/dL Total Bilirubin (0.2-1.3) mg/dL AST (14-36) U/L ALT (9-52) U/L Alkaline Phosphatase (38-126) U/L Total Protein (6.3-8.2) g/dL Albumin (3.5-5.0) g/dL Lipase (23-300) U/L Urine Color Light Yellow Urine Appearance Cloudy H (Clear) Urine pH 5.5 (5.0-8.0) Ur Specific Boron 1.007 (1.001-1.035) Urine Protein Negative (Negative) Urine Glucose (UA) Negative (Negative) Urine Ketones Negative (Negative) Urine Blood Negative (Negative) Urine Nitrite Negative (Negative) Urine Bilirubin Negative (Negative) Urine Urobilinogen <2.0 (<2.0) mg/dL Ur Leukocyte Esterase Negative (Negative) Urine RBC <1 (0-5) /hpf Urine WBC 1 (0-5) /hpf Ur Squamous Epith Cells 4 (0-4) /hpf Urine Bacteria Rare H (None) /hpf Urine Mucus Rare H (None) /hpf Urine Sperm Occasional H (None) /hpf Urine HCG, Qual Not Detected (Not Detectd) Disposition Clinical Impression: Labile blood glucose Disposition: HOME SELF-CARE Condition: Stable Instructions: Managing Diabetes During Sick Days (ED) Additional Instructions: Please return to the Emergency Department if symptoms worsen or any other concerns. Is patient prescribed a controlled substance at d/c from ED?: No Referrals: Gemma Jacob MD [Primary Care Provider] - 1-2 days Time of Disposition: 12:07
[2018-05-02] MEDS ORDERED: ONDANSETRON 4 MG/2 ML VIAL IVP STA (10:36)
[2018-05-02 10:54] LABS: Basophils % (A) 1 %; Eosinophils # (A) 0.1 k/uL (0-0.7); Eosinophils % (A) 1 %; HCT 41.1 % (34.0-46.0); HGB 14.6 gm/dL (11.4-16.0); Lymphocytes # (A) 1.7 k/uL (1.0-4.8); Lymphocytes % (A) 20 %; MCH 28.7 pg (25.0-35.0); MCHC 35.4 g/dL (31.0-37.0); MCV 81.1 fL (80.0-100.0); Mean Platelet Volume 7.3; Monocytes # (A) 0.6 k/uL (0-1.0); Monocytes % (A) 7 %; Neutrophils % (A) 70 %; Platelet Count 286 k/uL (150-450); RBC 5.07 m/uL (3.80-5.40); RDW 12.8 % (11.5-15.5); WBC 8.5 k/uL (3.8-10.6)
[2018-05-02 11:00] LABS: Appearance,Urine Cloudy (Clear); Bacteria,Urine Rare /hpf; Bilirubin,Urine Negative (Negative); Blood,Urine Negative (Negative); Color,Urine Light Yellow; Glucose,Urine (UA) Negative (Negative); Ketones,Urine Negative (Negative); Leukocyte Esterase,Urine Negative (Negative); Mucus,Urine Rare /hpf; Nitrite,Urine Negative (Negative); PH, Urine 5.5 (5.0-8.0); Protein,Urine Negative (Negative); RBC,Urine <1 /hpf (0-5); Specific Gravity,Urine 1.007 (1.001-1.035); Sperm,Urine Occasional /hpf; Squamous Epithelial Cell,Urine 4 /hpf (0-4); Urobilinogen,Urine <2.0 mg/dL (<2.0); WBC,Urine 1 /hpf (0-5)
[2018-05-02 11:04] LABS: ALT 96 U/L (9-52); AST 68 U/L (14-36); Alkaline Phosphatase 113 U/L (38-126); Anion Gap 10 mmol/L; Blood Urea Nitrogen 10 mg/dL (7-17); Calcium 9.4 mg/dL (8.4-10.2); Carbon Dioxide 23 mmol/L (22-30); Chloride 107 mmol/L (98-107); Glucose 132 mg/dL (74-99); Lipase 40 U/L (23-300); Potassium 4.1 mmol/L (3.5-5.1); Sodium 140 mmol/L (137-145); Total Bilirubin 1.2 mg/dL (0.2-1.3); Total Protein 7.1 g/dL (6.3-8.2)
[2018-05-02 12:05] VITALS: BP 113/55; PULSE 100; TEMP 97.2
== END 2018-05-02 12:55 | disposition home or self-care (01) ==
LOC: EC 09:26
DX: E11.8 Type 2 diabetes mellitus with unspecified complications (principal); R00.0 Tachycardia, unspecified; R11.0 Nausea; Z88.0 Allergy status to penicillin; Z88.8 Allergy status to other drugs, medicaments and biological substances; Z91.048 Other nonmedicinal substance allergy status; Z79.4 Long term (current) use of insulin; Z96.41 Presence of insulin pump (external) (internal); Z83.3 Family history of diabetes mellitus
CPT/HCPCS: 36415; 80053; 82009; 83690; 85025; 81001; 81025; 99284; 96374; 96361 ×2; J2405

== ENCOUNTER 2018-09-15 01:55 | Emergency (ER) | payer BC, OTHER ==
--- NOTE | 2018-09-15 03:37 | ED ---
Skin/Abscess/FB HPI - General Chief complaint: Skin/Abscess/Foreign Body Stated complaint: Female Source: patient Mode of arrival: ambulatory Limitations: no limitations - History of Present Illness Initial comments: Shalonda is a pleasant 23-year-old female past medical history of type I diabetes who presents the emergency department today for evaluation of a possible labial abscess. Patient reports that a couple days ago she noticed a firm nodule on her right labia majora, she states that she attempted to express some fluid from it but only got a little bit of blood since that time it's become more tender and swollen so she came to the ER for evaluation. - Related Data Home Medications Medication Instructions Recorded Confirmed metFORMIN HCL 1,000 mg PO BID 09/19/15 12/11/17 Insulin Regular [HumuLIN R] See Protocol SQ [facility] 04/22/16 12/11/17 ALPRAZolam [Xanax] 0.5 mg PO DAILY PRN 11/18/17 12/11/17 Insulin Glargine,Hum.rec.anlog 60 units SQ HS 11/18/17 12/11/17 [Estrada Barnett] INSULIN ASPART (NovoLOG) [NovoLOG See Protocol SQ [facility] 12/11/17 12/11/17 (formulary)] Liraglutide [Victoza 2-Maco] 0.6 mg SQ DAILY 12/11/17 12/11/17 Loratadine [Claritin] 10 mg PO DAILY PRN 12/11/17 12/11/17 glipiZIDE [Glucotrol] 10 mg PO BID 12/11/17 12/11/17 Previous Rx's Medication Instructions Recorded Albuterol Inhaler [Ventolin Hfa 1 - 2 puff INHALATION RT-Q6H PRN 11/18/17 Inhaler] #1 inhaler Ondansetron Odt [Zofran Odt] 4 mg PO Q8HR PRN #10 tab 12/11/17 Sulfamethox-Tmp 800-160Mg [Bactrim 1 tab PO Q12HR #10 tab 09/15/18 DS 800-160 mg] Allergies Allergy/AdvReac Type Severity Reaction Status Date / Time amoxicillin [Amoxicillin] Allergy Severe Rash/Hives Verified 09/15/18 02:13 citalopram hydrobromide Allergy Severe Rash/Hives Verified 09/15/18 02:13 [From Celexa] adhesive Allergy Rash/Hives Verified 09/15/18 02:13 adhesive tape Allergy Rash/Hives Verified 09/15/18 02:13 pioglitazone HCl [From Actos] Allergy Rash/Hives/Abdominal Verified 09/15/18 02:13 pain/Blood sugar issues Review of Systems ROS Statement: Those systems with pertinent positive or pertinent negative responses have been documented in the HPI. ROS Other: All systems not noted in ROS Statement are negative. Past Medical History Past Medical History: Asthma, Diabetes Mellitus, Thyroid Disorder Additional Past Medical History / Comment(s): polycystic ovaries, TACHYCARDIA History of Any Multi-Drug Resistant Organisms: None Reported Past Surgical History: Adenoidectomy, Cholecystectomy, Tonsillectomy Additional Past Surgical History / Comment(s): CYST REMOVAL FROM SINUS CAVITY, NOSE RECONSTRUCTION Past Anesthesia/Blood Transfusion Reactions: No Reported Reaction Past Psychological History: Anxiety, Depression Smoking Status: Never smoker Past Alcohol Use History: Occasional Past Drug Use History: Marijuana - Past Family History Mother Family Medical History: Diabetes Mellitus, Thyroid Disorder Additional Family Medical History / Comment(s): GESTATIONAL DIABETIC, BRAIN BLEED, DEPRESSION, ANXIETY Sister(s) Family Medical History: Thyroid Disorder Additional Family Medical History / Comment(s): DEPRESSION, ANXIETY General Exam - General Exam Comments Initial Comments: Physical Exam GENERAL: Patient is well-developed and well-nourished Patient is nontoxic and well-hydrated and is in no distress HENT: Normocephalic, Atraumatic. EYES: PERRL, EOMI PULMONARY: Unlabored respirations. CARDIOVASCULAR: Tachycardic, regular ABDOMEN: Soft and nontender with normal bowel sounds. SKIN: Skin is clear with no lesions or rashes and otherwise unremarkable. : Right lateral labia in the skin fold between labia and thigh small ~1cm abscess with no surrounding erythema or signs of cellulitis NEUROLOGIC: Patient is alert and oriented x3. Moving all extremities spontaneously MUSCULOSKELETAL: Normal extremities with adequate strength and full range of motion. No lower extremity swelling or edema. No calf tenderness. PSYCHIATRIC: Normal psychiatric evaluation. Limitations: no limitations Limitations: no limitations Course Vital Signs 09/15/18 02:07 Temperature 99.3 F Pulse Rate 121 H Respiratory 20 Rate Blood Pressure 169/109 O2 Sat by Pulse 99 Oximetry Procedures - Incision & Drainage Consent Obtained: verbal consent Site: vulva/vagina Anesthetic Used: lidocaine 1% Amount (mLs): 2 I&D Cleaning Method: Betadine Sterile Field Used?: No Scalpel Used: #11 Needle Aspiration Performed?: No Irrigation Performed?: No I&D Drainage Obtained: Pus, Blood Culture Obtained?: No Patient Tolerated Procedure: well, no complications Medical Decision Making - Medical Decision Making The patient was seen and evaluated history is obtained from the patient sinus 23-year-old female with insulin-dependent diabetes who is presenting with a small abscess on the lateral right labia. Abscess appears to be an infected ingrown hair or hair follicle. There is no surrounding cellulitis. Due to the patient being diabetic labs were obtained including a blood culture The area was cleansed with Betadine and anesthetized with 1-2 mL's of lidocaine and incised with a approximately 5-7 mm stellate incision The patient is diabetic I will start her empirically on antibiotics. She'll receive her first dose of Bactrim and hospital be discharged home with 5 days of Bactrim Wound care and follow-up instructions were discussed all questions pertaining care were answered patient was discharged home in stable condition - Lab Data Result diagrams: 09/15/18 04:10 09/15/18 04:10 Lab Results 09/15/18 09/15/18 Range/Units 04:10 04:10 WBC 9.5 (3.8-10.6) k/uL RBC 5.06 (3.80-5.40) m/uL Hgb 14.2 (11.4-16.0) gm/dL Hct 41.0 (34.0-46.0) % MCV 81.0 (80.0-100.0) fL MCH 28.1 (25.0-35.0) pg MCHC 34.7 (31.0-37.0) g/dL RDW 13.8 (11.5-15.5) % Plt Count 303 (150-450) k/uL Neutrophils % 60 % Lymphocytes % 31 % Monocytes % 5 % Eosinophils % 2 % Basophils % 1 % Neutrophils # 5.6 (1.3-7.7) k/uL Lymphocytes # 2.9 (1.0-4.8) k/uL Monocytes # 0.5 (0-1.0) k/uL Eosinophils # 0.2 (0-0.7) k/uL Basophils # 0.0 (0-0.2) k/uL Sodium 137 (137-145) mmol/L Potassium 4.2 (3.5-5.1) mmol/L Chloride 102 (98-107) mmol/L Carbon Dioxide 23 (22-30) mmol/L Anion Gap 12 mmol/L BUN 11 (7-17) mg/dL Creatinine 0.45 L (0.52-1.04) mg/dL Est GFR (CKD-EPI)AfAm >90 (>60 ml/min/1.73 sqM) Est GFR (CKD-EPI)NonAf >90 (>60 ml/min/1.73 sqM) Glucose 224 H (74-99) mg/dL Calcium 9.6 (8.4-10.2) mg/dL Total Bilirubin 1.4 H (0.2-1.3) mg/dL AST 59 H (14-36) U/L ALT 103 H (9-52) U/L Alkaline Phosphatase 129 H (38-126) U/L Total Protein 7.3 (6.3-8.2) g/dL Albumin 4.4 (3.5-5.0) g/dL Disposition Clinical Impression: Abscess Disposition: HOME SELF-CARE Condition: Stable Instructions (If sedation given, give patient instructions): Abscess Incision and Drainage (ED) Prescriptions: Sulfamethox-Tmp 800-160Mg [Bactrim DS 800-160 mg] 1 tab PO Q12HR #10 tab Is patient prescribed a controlled substance at d/c from ED?: No Referrals: Gemma Jacob MD [Primary Care Provider] - 1-2 days
[2018-09-15] MEDS ORDERED: LIDOCAINE 1% INJ 10MG/ML (20 ML MDV) SQ ONE (03:38)
[2018-09-15 04:36] LABS: Basophils % (A) 1 %; Eosinophils # (A) 0.2 k/uL (0-0.7); Eosinophils % (A) 2 %; HGB 14.2 gm/dL (11.4-16.0); Lymphocytes # (A) 2.9 k/uL (1.0-4.8); Lymphocytes % (A) 31 %; MCH 28.1 pg (25.0-35.0); MCHC 34.7 g/dL (31.0-37.0); Mean Platelet Volume 7.6; Monocytes # (A) 0.5 k/uL (0-1.0); Monocytes % (A) 5 %; Neutrophils # (A) 5.6 k/uL (1.3-7.7); Neutrophils % (A) 60 %; Platelet Count 303 k/uL (150-450); RBC 5.06 m/uL (3.80-5.40); RDW 13.8 % (11.5-15.5); WBC 9.5 k/uL (3.8-10.6)
[2018-09-15 04:42] LABS: ALT 103 U/L (9-52); AST 59 U/L (14-36); Albumin 4.4 g/dL (3.5-5.0); Alkaline Phosphatase 129 U/L (38-126); Anion Gap 12 mmol/L; Blood Urea Nitrogen 11 mg/dL (7-17); Calcium 9.6 mg/dL (8.4-10.2); Carbon Dioxide 23 mmol/L (22-30); Chloride 102 mmol/L (98-107); Glucose 224 mg/dL (74-99); Potassium 4.2 mmol/L (3.5-5.1); Sodium 137 mmol/L (137-145); Total Bilirubin 1.4 mg/dL (0.2-1.3); Total Protein 7.3 g/dL (6.3-8.2)
[2018-09-15] MEDS ORDERED: SULFAMETH-TMP DS STARTER PACK 2 TAB BTL PO STA (05:04)
[2018-09-15 06:06] VITALS: BP 140/78; PULSE 78; RESP 19; TEMP 98.7
== END 2018-09-15 05:17 | disposition home or self-care (01) ==
LOC: EC 01:55
DX: N76.4 Abscess of vulva (principal); E10.9 Type 1 diabetes mellitus without complications; Z79.4 Long term (current) use of insulin; Z88.0 Allergy status to penicillin; Z88.8 Allergy status to other drugs, medicaments and biological substances; Z91.048 Other nonmedicinal substance allergy status
CPT/HCPCS: 36415; 80053; 85025; 87040; 99283; 56405; J2001

== ENCOUNTER 2018-11-14 14:07 | Emergency (ER) | payer BC, OTHER ==
[2018-11-14 14:23] VITALS: TEMP 98.1
[2018-11-14] MEDS ORDERED: diphenhydrAMINE 50 MG/ML 1 ML VIAL IVP STA (14:51)
[2018-11-14] MEDS ORDERED: SODIUM CHLORIDE 0.9% 1,000 ML IV STA (14:51)
[2018-11-14] MEDS ORDERED: KETOROLAC 30 MG/ML 1 ML VIAL IVP STA (14:51)
[2018-11-14] MEDS ORDERED: METOCLOPRAMIDE 5 MG/ML 2 ML VIAL IVP STA (14:51)
--- NOTE | 2018-11-14 15:26 | ED ---
Headache HPI - General Chief Complaint: Headache Stated Complaint: Headache Time Seen by Provider: 11/14/18 14:29 Source: RN notes reviewed, old records reviewed Mode of arrival: ambulatory Limitations: no limitations - History of Present Illness Initial Comments: Patient is a 23-year-old female presents Today with Migraine-like Headache for the past 2 Days. She Reports Some Nausea and One Episode of Vomiting. She States That She's Been Having Persistent Headache. Typically She Had Is on Her Blood Sugars Were Abnormal. Patient Reports Her blood sugar Have Been Stable for the past Few Weeks. Patient States That She Has No Fevers or Chills. She States She's Been Taking Motrin Tylenol and Decongestant Medications with Little Relief. - Related Data Home Medications Medication Instructions Recorded Confirmed metFORMIN HCL 1,000 mg PO BID 09/19/15 11/14/18 Insulin Regular [HumuLIN R] See Protocol SQ [facility] 04/22/16 11/14/18 ALPRAZolam [Xanax] 0.5 mg PO DAILY PRN 11/18/17 11/14/18 Liraglutide [Victoza 2-Maco] 0.6 mg SQ DAILY 12/11/17 11/14/18 Loratadine [Claritin] 10 mg PO DAILY PRN 12/11/17 11/14/18 Levothyroxine Sodium [Synthroid] 25 mcg PO DAILY 11/14/18 11/14/18 Previous Rx's Medication Instructions Recorded Albuterol Inhaler [Ventolin Hfa 1 - 2 puff INHALATION RT-Q6H PRN 11/18/17 Inhaler] #1 inhaler Ondansetron Odt [Zofran Odt] 4 mg PO Q8HR PRN #10 tab 12/11/17 Ondansetron Odt [Zofran Odt] 4 mg PO Q8HR PRN #12 tab 11/14/18 Allergies Allergy/AdvReac Type Severity Reaction Status Date / Time amoxicillin [Amoxicillin] Allergy Severe Rash/Hives Verified 11/14/18 15:18 citalopram hydrobromide Allergy Severe Rash/Hives Verified 11/14/18 15:18 [From Celexa] adhesive Allergy Rash/Hives Verified 11/14/18 15:18 adhesive tape Allergy Rash/Hives Verified 11/14/18 15:18 pioglitazone HCl [From Actos] Allergy Rash/Hives/Abdominal Verified 11/14/18 15:18 pain/Blood sugar issues Review of Systems ROS Statement: Those systems with pertinent positive or pertinent negative responses have been documented in the HPI. ROS Other: All systems not noted in ROS Statement are negative. Past Medical History Past Medical History: Asthma, Diabetes Mellitus, Thyroid Disorder Additional Past Medical History / Comment(s): polycystic ovaries, TACHYCARDIA History of Any Multi-Drug Resistant Organisms: None Reported Past Surgical History: Adenoidectomy, Cholecystectomy, Tonsillectomy Additional Past Surgical History / Comment(s): CYST REMOVAL FROM SINUS CAVITY, NOSE RECONSTRUCTION Past Anesthesia/Blood Transfusion Reactions: No Reported Reaction Past Psychological History: Anxiety, Depression Smoking Status: Never smoker Past Alcohol Use History: Occasional Past Drug Use History: Marijuana - Past Family History Mother Family Medical History: Diabetes Mellitus, Thyroid Disorder Additional Family Medical History / Comment(s): GESTATIONAL DIABETIC, BRAIN BLEED, DEPRESSION, ANXIETY Sister(s) Family Medical History: Thyroid Disorder Additional Family Medical History / Comment(s): DEPRESSION, ANXIETY General Exam - General Exam Comments Initial Comments: Alert and oriented 23-year-old female. No distress. General: Well appearing, well nourished, in no distress. Oriented x 3, normal mood and affect . Ambulating without difficulty. Skin: Good turgor, no rash, unusual bruising or prominent lesions Hair: Normal texture and distribution. HEENT: Head: Normocephalic, atraumatic, no visible or palpable masses, depressions, or scaring. Eyes: Visual acuity intact, conjunctiva clear, sclera non-icteric, EOM intact, PERRL. Ears: EACs clear, TMs translucent & cone of light visualized. hearing intact. Nose: No external lesions, mucosa non-inflamed, septum and turbinates normal Mouth: Mucous membranes moist, no mucosal lesions. Teeth/Gums: No obvious caries or periodontal disease. No gingival inflammation or significant resorption. Pharynx: Mucosa non-inflamed, no tonsillar hypertrophy or exudate Neck: Supple, without lesions, bruits, or adenopathy, thyroid non-enlarged and non-tender Heart: No cardiomegaly or thrills; regular rate and rhythm, no murmur or gallop Lungs: Clear to auscultation and percussion Abdomen: Bowel sounds normal, no tenderness, organomegaly, masses, or hernia Back: Spine normal without deformity or tenderness, no CVA tenderness Extremities: No amputations or deformities, cyanosis, edema or varicosities, peripheral pulses intact Musculoskeletal: Normal gait and station. No misalignment, asymmetry, crepitation, defects, tenderness, masses, effusions, decreased range of motion, instability, atrophy or abnormal strength or tone in the head, neck, spine, ribs, pelvis or extremities. Neurologic: CN 2-12 normal. Sensation to pain, touch, and proprioception normal. DTRs normal in upper and lower extremities. No pathologic reflexes. Psychiatric: Oriented X3, intact recent and remote memory, judgment and insight, normal mood and affect. Limitations: no limitations Course Vital Signs 11/14/18 11/14/18 11/14/18 14:21 16:41 17:38 Temperature 98.1 F 98.1 F Pulse Rate 98 104 H 104 H Respiratory 18 16 16 Rate Blood Pressure 132/87 134/88 134/88 O2 Sat by Pulse 96 98 98 Oximetry Medical Decision Making - Medical Decision Making 23-year-old female with history of diabetes, managed by insulin presents with migraine-like headache for the past 2 days. Patient was given IV fluids and given migraine cocktail. Blood work is reviewed and unremarkable. Patient does feel better after receiving migraine cocktail, and reports her pain is now a 5 out of 10. Patient has no neurological deficits. She otherwise appears well. Patient will be discharged at this time with prescription for nausea medicine and continue to take Motrin Tylenol for further headache. Patient denies have close follow-up with her regular doctor. All questions were answered return parameters were discussed. - Lab Data Result diagrams: 11/14/18 15:05 11/14/18 15:05 Lab Results 11/14/18 11/14/18 Range/Units 15:05 15:05 WBC 8.2 (3.8-10.6) k/uL RBC 5.28 (3.80-5.40) m/uL Hgb 15.0 (11.4-16.0) gm/dL Hct 43.5 (34.0-46.0) % MCV 82.3 (80.0-100.0) fL MCH 28.3 (25.0-35.0) pg MCHC 34.4 (31.0-37.0) g/dL RDW 13.3 (11.5-15.5) % Plt Count 256 (150-450) k/uL Neutrophils % 72 % Lymphocytes % 19 % Monocytes % 6 % Eosinophils % 1 % Basophils % 0 % Neutrophils # 5.8 (1.3-7.7) k/uL Lymphocytes # 1.5 (1.0-4.8) k/uL Monocytes # 0.5 (0-1.0) k/uL Eosinophils # 0.1 (0-0.7) k/uL Basophils # 0.0 (0-0.2) k/uL Sodium 138 (137-145) mmol/L Potassium 4.5 (3.5-5.1) mmol/L Chloride 106 (98-107) mmol/L Carbon Dioxide 24 (22-30) mmol/L Anion Gap 8 mmol/L BUN 9 (7-17) mg/dL Creatinine 0.48 L (0.52-1.04) mg/dL Est GFR (CKD-EPI)AfAm >90 (>60 ml/min/1.73 sqM) Est GFR (CKD-EPI)NonAf >90 (>60 ml/min/1.73 sqM) Glucose 184 H (74-99) mg/dL Calcium 9.2 (8.4-10.2) mg/dL Total Bilirubin 1.8 H (0.2-1.3) mg/dL AST 133 H (14-36) U/L ALT 129 H (9-52) U/L Alkaline Phosphatase 98 (38-126) U/L Total Protein 7.2 (6.3-8.2) g/dL Albumin 4.2 (3.5-5.0) g/dL Disposition Clinical Impression: Migraine Disposition: HOME SELF-CARE Condition: Good Instructions (If sedation given, give patient instructions): Migraine Headache (ED) Additional Instructions: Patient advised to follow-up with your primary care physician. Sating Motrin Tylenol for pain and nausea medicine as well as dosing Benadryl to help with migraine-like headaches. Return to the emergency department if any alarming signs or symptoms occur. Prescriptions: Ondansetron Odt [Zofran Odt] 4 mg PO Q8HR PRN #12 tab PRN Reason: Nausea Is patient prescribed a controlled substance at d/c from ED?: No Referrals: Gemma Jacob MD [Primary Care Provider] - 1-2 days Time of Disposition: 17:03
[2018-11-14 15:29] LABS: Basophils % (A) 0 %; Eosinophils # (A) 0.1 k/uL (0-0.7); Eosinophils % (A) 1 %; HCT 43.5 % (34.0-46.0); Lymphocytes # (A) 1.5 k/uL (1.0-4.8); Lymphocytes % (A) 19 %; MCH 28.3 pg (25.0-35.0); MCHC 34.4 g/dL (31.0-37.0); MCV 82.3 fL (80.0-100.0); Mean Platelet Volume 7.1; Monocytes # (A) 0.5 k/uL (0-1.0); Monocytes % (A) 6 %; Neutrophils # (A) 5.8 k/uL (1.3-7.7); Neutrophils % (A) 72 %; Platelet Count 256 k/uL (150-450); RBC 5.28 m/uL (3.80-5.40); RDW 13.3 % (11.5-15.5); WBC 8.2 k/uL (3.8-10.6)
[2018-11-14 15:37] LABS: ALT 129 U/L (9-52); AST 133 U/L (14-36); African American GFR (CKD) >90 (>60 ml/min/1.73 sqM); Albumin 4.2 g/dL (3.5-5.0); Alkaline Phosphatase 98 U/L (38-126); Anion Gap 8 mmol/L; Blood Urea Nitrogen 9 mg/dL (7-17); Calcium 9.2 mg/dL (8.4-10.2); Carbon Dioxide 24 mmol/L (22-30); Chloride 106 mmol/L (98-107); Glucose 184 mg/dL (74-99); Potassium 4.5 mmol/L (3.5-5.1); Sodium 138 mmol/L (137-145); Total Bilirubin 1.8 mg/dL (0.2-1.3); Total Protein 7.2 g/dL (6.3-8.2)
[2018-11-14] MEDS ORDERED: ORPHENADRINE 30 MG/ML 2 ML VIAL IVP STA (16:25)
[2018-11-14 16:42] VITALS: BP 134/88; PULSE 104; RESP 16
== END 2018-11-14 17:38 | disposition home or self-care (01) ==
LOC: EC 14:07
DX: G43.909 Migraine, unspecified, not intractable, without status migrainosus (principal); E11.9 Type 2 diabetes mellitus without complications; E07.9 Disorder of thyroid, unspecified; Z79.4 Long term (current) use of insulin; Z79.890 Hormone replacement therapy; Z88.0 Allergy status to penicillin; Z88.8 Allergy status to other drugs, medicaments and biological substances; Z91.048 Other nonmedicinal substance allergy status
CPT/HCPCS: 99284; 96374; 96375 ×3; 96361; 36415; 80053; 85025; J1200; J2360; J2765; J1885

== ENCOUNTER → 2019-12-02 | Outpatient (CLI) | payer OTHER, BC | END | disposition home or self-care (01) | LOC: LABWHC1 14:37 | PROVIDERS: ATTEND Obstetrics & Gynecology | DX: N92.5 Other specified irregular menstruation (principal) | CPT/HCPCS: 36415; 84702 ==

== ENCOUNTER → 2021-01-11 | Outpatient (CLI) | payer OTHER, BC ==
[2021-01-11 13:39] VITALS: BP 143/85; PULSE 92; RESP 16; TEMP 99.1; BMI 45.3
[2021-01-11 14:36] LABS: HCT 42.6 % (34.0-46.0); HGB 15.1 gm/dL (11.4-16.0); MCH 29.8 pg (25.0-35.0); MCHC 35.5 g/dL (31.0-37.0); MCV 83.9 fL (80.0-100.0); Mean Platelet Volume 7.9; Platelet Count 286 k/uL (150-450); RBC 5.08 m/uL (3.80-5.40); RDW 12.6 % (11.5-15.5); WBC 7.9 k/uL (3.8-10.6)
--- NOTE | 2021-01-11 15:52 | P.HPBAR ---
Bariatric H&P - History & Physicial H&P Date: 01/11/21 History & Physicial: Visit/CC: Initial Patient initial contact: Initial weight: 129.472 kg Initial weight in pounds: 285.44 Height: 5 ft 6.5 in Initial BMI: 45.3 Last weight: Current weight: 129.274 kg Current weight in pounds: 285.00 Current BMI: 45.3 [place] body weight (based on NIH guidelines): 60.101 kg Excess body weight loss: 0.2% The patient is a 25 year-old F who presents for Bariatric Assessment. 25-year-old female here today to discuss weight loss surgery. This is her first visit to discuss bariatric surgery. Patient with no medical comorbidities including type 2 diabetes PCO S depression and anxiety. Patient states she was diagnosed with hereditary type 2 diabetes at age 13. Patient has always had an elevated hemoglobin A1c. It was better until she stopped her insulin pump which is no longer being divided for by her insurance company. Most recent hemoglobin A1c was 10. Patient does see endocrinology for her diabetic control. Current BMI 36. No history of DVT or dysphagia. No history of upper endoscopy. Abdominal surgeries including diagnostic laparoscopy and laparoscopic cholecystectomy. No tobacco use currently. Review of Systems The patient denies any acute changes in vision or hearing, no dysphagia or odynophagia, no chest pain or shortness of breath, no dysuria or hematuria, no headache, no runny nose, no rectal bleeding or melena, no unexplained weight loss Past Medical History Past Medical History: Asthma, Diabetes Mellitus, Thyroid Disorder Additional Past Medical History / Comment(s): polycystic ovaries, TACHYCARDIA History of Any Multi-Drug Resistant Organisms: None Reported Past Surgical History: Adenoidectomy, Cholecystectomy, Tonsillectomy Additional Past Surgical History / Comment(s): CYST REMOVAL FROM SINUS CAVITY, NOSE RECONSTRUCTION Past Anesthesia/Blood Transfusion Reactions: No Reported Reaction Smoking Status: Never smoker - Past Family History Mother Family Medical History: Diabetes Mellitus, Thyroid Disorder Additional Family Medical History / Comment(s): GESTATIONAL DIABETIC, BRAIN BLEED, DEPRESSION, ANXIETY Sister(s) Family Medical History: Thyroid Disorder Additional Family Medical History / Comment(s): DEPRESSION, ANXIETY Surgical - Exam Vital Signs Temp Pulse Resp BP 99.1 F 92 16 143/85 01/11/21 13:35 01/11/21 13:35 01/11/21 13:35 01/11/21 13:35 Physical exam: General: Well-developed, well-nourished HEENT: Normocephalic, sclerae nonicteric Abdomen: Nontender, nondistended Extremities: No edema Neuro: Alert and oriented Results - Labs 01/11/21 14:15 Bariatric Assessment & Plan (1) Obesity Narrative/Plan: 25-year-old female with BMI 36. Risks and benefits of sleeve gastrectomy and gastric bypass discussed in detail with the patient. Realistic expectations regarding degree of weight loss also discussed. Patient remains interested in sleeve gastrectomy. We'll schedule for upper endoscopy in the near future. The risks of bleeding, infection, stenosis, stricture, leak, abscess, fistula formation, peritonitis, poor weight loss, reflux, vomiting, conversion to an open procedure, aborting sleeve gastrectomy, [place], PE, DVT, and were discussed. The patient understands and wishes to proceed. Status: Acute Bariatric Checklist Checklist: Plan: Checklist: EGD: 1. Hiatal hernia: 2. H. Pylori: HgbA1c: Vitamin D: Smoking: Never smoker Primary care physician referral: Pamela Psychiatry clearance: Cardiology clearance: Sleep study: Diet journal: VTE risk score: VTE risk level: Rehab needs at discharge:
[2021-01-12 22:35] LABS: African American GFR (CKD) 90.7 (60.0-200.0); Albumin 4.7 g/dL (3.80-4.90); Albumin/Globulin Ratio 1.47 (1.60-3.17); Anion Gap 10.9 mmol/L (4.00-12.00); Calcium 9.4 mg/dL (8.7-10.3); Carbon Dioxide 25.1 mmol/L (21.6-31.8); Folate, Serum 15.1 ng/mL; Globulin 3.2 g/dL (1.6-3.3); Non-African American GFR(CKD) 78.2 (60.0-200.0); Potassium 4.9 mmol/L (3.5-5.5); Total Bilirubin 1.9 mg/dL (0.2-1.2); Total Protein 7.9 g/dL (6.2-8.2)
== END ==
LOC: BARWHC3 12:56
PROVIDERS: ATTEND Surgery
DX: E66.9 Obesity, unspecified (principal); F41.9 Anxiety disorder, unspecified; F32.9 Major depressive disorder, single episode, unspecified; E11.9 Type 2 diabetes mellitus without complications; Z88.1 Allergy status to other antibiotic agents; Z91.048 Other nonmedicinal substance allergy status; Z68.36 Body mass index [BMI] 36.0-36.9, adult
CPT/HCPCS: 36415; 80053; 80323; 82306; 82607; 82746; 83540; 84425; 85027; 93005; 99211

== ENCOUNTER → 2021-04-30 | Outpatient (CLI) | payer OTHER, BC ==
[2021-04-30 21:03] LABS: Gliadin AB IgA, Deaminated NEGATIVE (NEGATIVE); Gliadin AB IgA, Unit 3.4 U/mL; Gliadin AB IgG, Deaminated NEGATIVE (NEGATIVE)
[2021-04-30 21:35] LABS: Thyroid Peroxidase Antibodies <9.0 U/mL (0.0-33.0)
== END | disposition home or self-care (01) ==
LOC: LABWHC1 12:59
PROVIDERS: ATTEND Allergy & Immunology
DX: T78.3XXA Angioneurotic edema, initial encounter (principal); K21.9 Gastro-esophageal reflux disease without esophagitis; K52.9 Noninfective gastroenteritis and colitis, unspecified; R53.83 Other fatigue
CPT/HCPCS: 36415; 82784; 83516; 86376; 86800

== ENCOUNTER → 2024-08-17 | Outpatient (CLI) | payer OTHER ==
--- NOTE | 2024-08-17 15:51 | XR ---
EXAMINATION TYPE: XR hand complete RT, XR wrist complete BILATERAL DATE OF EXAM: 08/17/2024 3:44 PM COMPARISON: None. CLINICAL INDICATION: Female, 28 years old with history of S63.502A, S53.402A, S63.6X1A, pain TECHNIQUE: XR hand complete RT, XR wrist complete BILATERAL XX views were obtained. FINDINGS: There is no acute fracture/dislocation evident. The joint spaces appear within normal limits. The ov erlying soft tissue appears unremarkable. IMPRESSION: No acute fracture or dislocation. [facility], , 08/17/2024 3:49 PM
--- NOTE | 2024-08-17 15:58 | XR ---
EXAMINATION TYPE: XR elbow complete LT DATE OF EXAM: 08/17/2024 3:44 PM COMPARISON: None. CLINICAL INDICATION: Female, 28 years old with history of S63.502A, S53.402A, S63.6X1A, TECHNIQUE: XR elbow complete LT XX views were obtained. FINDINGS: There is no acute fracture/dislocation evident of the elbow. No abnormal fat pad signs are seen. Th e overlying soft tissue appears unremarkable. IMPRESSION: There is no acute fracture or dislocation of the elbow. ICD 10 NO FRACTURE, INITIAL EVALUATION [facility], , 08/17/2024 3:56 PM
== END | disposition home or self-care (01) ==
LOC: RADXRMAIN 15:05
PROVIDERS: ATTEND Emergency Medicine
DX: S63.502A Unspecified sprain of left wrist, initial encounter (principal); S53.402A Unspecified sprain of left elbow, initial encounter; S63.8X1A Sprain of other part of right wrist and hand, initial encounter; X58.XXXA Exposure to other specified factors, initial encounter

== ENCOUNTER → 2024-09-10 | Outpatient (CLI) | payer OTHER ==
--- NOTE | 2024-09-10 17:02 | XR ---
EXAMINATION TYPE: XR wrist complete RT DATE OF EXAM: 09/10/2024 4:41 PM COMPARISON: 08/17/2024 CLINICAL INDICATION: Female, 29 years old with history of S63.8X1D SPRAIN OF OTHER PART OF RIGHT WRIS T AND H, pain TECHNIQUE: 4 view(s) obtained. FINDINGS: No acute fracture or dislocation evident. Joint spaces appear preserved. Soft tissues are normal. Fol low up exams can be performed 7-10 days from acute trauma for continued pain. If there is pain at the anatomic snuff box, nuclear medicine bone scan could be performed for additio nal evaluation. MRI can be performed for soft tissue evaluation. IMPRESSION: 1. No acute osseous abnormality right wrist [facility], , 09/10/2024 4:59 PM
--- NOTE | 2024-09-10 17:05 | XR ---
EXAMINATION TYPE: XR hand complete RT DATE OF EXAM: 09/10/2024 4:41 PM COMPARISON: None. CLINICAL INDICATION: Female, 29 years old with history of S63.8X1D SPRAIN OF OTHER PART OF RIGHT WRIS T AND H, pain TECHNIQUE: 3 view(s) obtained. FINDINGS: No acute fracture or dislocation. Joint spaces are preserved. Soft tissues are normal. Follow up exams can be performed 7-10 days from acute trauma for continued pain IMPRESSION: 1. No acute osseous abnormality right hand [facility], , 09/10/2024 5:02 PM
== END | disposition home or self-care (01) ==
LOC: RADXRMAIN 16:26
PROVIDERS: ATTEND Emergency Medicine
DX: S63.8X1D Sprain of other part of right wrist and hand, subsequent encounter (principal); X58.XXXD Exposure to other specified factors, subsequent encounter